=== PATIENT | female | born 1950 | race Caucasian/White ===

== ENCOUNTER → 2019-10-24 | Outpatient (CLI) | payer MEDICARE, OTHER, SELFPAY | PROVIDERS: Family Provider Family Medicine; Visit Provider Internal Medicine Medical Oncology | DX: Z45.2 Encounter for adjustment and management of vascular access device (principal) | CPT/HCPCS: 96523; J1642 ==

== ENCOUNTER 2019-12-09 08:07 | Outpatient (CLI) | payer MEDICARE, OTHER, SELFPAY ==
[2019-12-09 09:12] LABS: Alanine Aminotransferase 12 U/L (0-33); Albumin Level 4.1 g/dL (3.5-5.2); Alkaline Phosphatase 46 IU/L (35-105); Anion Gap 18.2 (5-19); Aspartate Amino Transferase 17 U/L (0-32); Basophils % 0.8 %; Blood Urea Nitrogen 28 mg/dL (8-23); Calcium 10.6 mg/dL (8.5-10.5); Carbon Dioxide 26 mmol/L (22-29); Chloride 101 mmol/L (98-107); Eosinophils # 0.2 10^3/uL (0.0-0.8); Globulin 2.8 g/dL (1.3-4.6); Glomerular Filtration Rate 61.9 mL/min (90-130); Glucose 92 mg/dL (65-115); Hematocrit 35.5 % (37.0-47.0); Hemoglobin 11.4 g/dL (11.5-15.3); Lactate Dehydrogenase 174 U/L (135-214); Lymphocytes # 0.5 10^3/uL (0.8-4.8); Lymphocytes % 14.8 %; Mean Corpuscular HGB Conc 32.1 g/dL (30.0-36.0); Mean Corpuscular Hemoglobin 29.8 pg (28.0-34.0); Mean Corpuscular Volume 92.7 fL (81-99); Monocytes # 0.4 10^3/uL (0.2-0.9); Monocytes % 10.7 %; Neutrophils # 2.5 10^3/uL (1.8-7.7); Neutrophils % 67.4 %; Nucleated Red Blood Cells % 0 %; Platelet Count 200 10^3/cmm (130-400); Potassium 4.2 mmol/L (3.5-5.1); Red Blood Count 3.83 10^6/uL (4.1-5.3); Red Cell Distribution Width 14.2 % (12.1-15.1); Sodium 141 mmol/L (136-145); Total Bilirubin 0.3 mg/dL (0.15-1.2); Total Protein 6.9 g/dL (6.6-8.7); White Blood Count 3.7 10^3/uL (4.0-10.0)
--- NOTE | 2019-12-09 12:40 | ONC FU_ITS ---
Dr. Quijano Patient Follow-Up Note Patient: Aniyah Drew Unit #: [id number]: 1950 Dicatated By: Mahesh Quijano M.D.Date of Visit:Dec 09, 2019 Onc Med Follow-up/Prog Note Chief Complaint: Lymphoma. History of Present Illness: This is a 69 year-old woman with extranodal marginal zone lymphoma, initially involving the right orbit and subsequently with involvement in the right breast. She was initially diagnosed with marginal zone lymphoma of the right orbit in June 2008. She was felt clinically to have stage IE disease. CT at that time showed a mass arising in the soft tissues of the right orbit anterior and superior to the ocular globe. It measured 2.3 x 0.9 x 2.4 cm. 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 Staging PET/CT showed some nonspecific FDG uptake in subcentimeter mediastinal lymph nodes. It was otherwise negative. Bone marrow aspiration/biopsy also was negative. She was treated with involved field radiation to a total dose of 30 Gy, which she completed in August 2008. She did have a good clinical response. She had several followup PET/CT studies, the most recent of which was in July 2009. It again showed some mild FDG uptake in the right supraclavicular and mediastinal lymph nodes. It was felt that there was possibly progression of the lymphoma, but the lymph nodes were not pathologically enlarged. She had just remained on observation following the radiation. In November 2012 a screening mammogram showed a new area of increasing density in the upper outer quadrant of the right breast. Additional studies, including ultrasound, showed what appeared to be some scarring or fibroglandular tissue. The appearance was not particularly suspicious for malignancy, but short term followup was recommended. Repeat mammogram/ultrasound in June 2013 showed persistent findings at that point these did appear to be more suspicious. She underwent stereotactic biopsy of the right breast on 08/01/2013. Pathology was again consistent with extra mercedez marginal zone lymphoma. Restaging PET/CT showed mild FDG uptake in right supraclavicular and paratracheal lymph nodes which were not pathologically enlarged. The maximum SUVs were 2.33 and 2.57 respectively. There was a 1.4 x 0.9 cm right lower lobe lung nodule with minimal FDG uptake (SUV 1.09). A small pancreatic lymph node was noted to have a maximum SUV of 3.79 and a 1.8 cm mesenteric nodule which appeared to be adjacent or within the small bowel in the mid abdomen just to the right of midline had a maximal SUV of 5.1. There were other subtle areas of FDG uptake in the subcutaneous soft tissues in the buttocks and lower extremities. The significance of that was uncertain. The right breast showed soft tissue densities with focally increased metabolic activity, greatest in the upper outer quadrant with maximum SUV 1.08. Overall, the PET/CT findings were nonspecific but suggestive of other areas of involvement. None of these would otherwise be significant enough to warrant treatment. However, with the biopsy proven involvement in the right breast, I did recommend treatment with a 4-week course of single agent Rituxan, which she completed in September 2013. She was then followed on observation/expectant management. Her other medical illnesses have been limited to GERD, degenerative arthritis, and she apparently also has had mild hypercholesterolemia. She also has a history of anxiety/depression. Her only other surgery was a hysterectomy and unilateral oophorectomy for endometriosis in 1989. She had a GI endoscopy procedure approximately 10 years ago. She had smoked in the past, but she quit in 1989. INTERIM HISTORY: On 08/22/2018 she presented with a painful nodule in the upper inner left thigh area. Her exam showed a 2 cm nodule in the proximal left femoral soft tissue. Restaging PET/CT on 08/31/2018 showed extensive left-sided pelvic lymphadenopathy from the left common iliac level to the femoral level, including a 3.1 x 2.6 cm left femoral node with SUV 21.9. Also noted were multiple FDG avid portal and gastrohepatic nodes measuring up to 1.7 cm. Two subcentimeter right supraclavicular nodes showed minimal FDG activity, but they were felt to be suspicious. Also noted were several minimally positive nodes in the right paratracheal, pretracheal, and subcarinal territories. She was referred to Dr. Corina Roberto at [facility]. The clinical presentation was worrisome for transformed lymphoma, but her left femoral node biopsy was again consistent with marginal zone lymphoma. Dr. Roberto has recommended treatment with 6 cycles of bendamustine/Rituxan and possibly maintenance Rituxan depending on the degree of response by follow-up PET/CT after 2 cycles. She began cycle 1 of bendamustine/Rituxan on 10/03/2018. She tolerated it without significant toxicity and she continued with cycle 2 on 10/31/2018. Restaging PET/CT on 11/23/2018, following completion of 2 cycles of chemotherapy, showed mild improvement in portal and gastrohepatic nodes with no significant decrease in size but with some decrease in the FDG avidity. A questionable right supraclavicular lymph node was unchanged and appeared most likely reactive. There was almost complete resolution of the pelvic lymphadenopathy, all decreased to subcentimeter in size and FDG negative. She then continued treatment with bendamustine/Rituxan. She began cycle 5 on 01/23/2019 and cycle 6 on 02/20/2019. Restaging PET/CT on 03/22/2019 showed no significant FDG uptake in supraclavicular lymph nodes. The upper abdominal lymph nodes appeared unchanged with the index peripancreatic node showing SUV 4.9. There was no residual activity and pelvic/inguinal lymph nodes and there were no new potential sites of involvement noted. Given those findings, she then began maintenance rituximab, cycle 1 on 04/24/2019. Restaging CT scans on 06/19/2019 showed no evidence of neoplastic process in the chest. The abdomen/pelvis showed small matthew hepatis lymph nodes with doubtful enlargement compared to the February 2019 PET/CT. There was resolved central mesenteric adenopathy. A soft tissue density was noted in the posterior lateral gluteal soft tissue on the right measuring 1.4 x 2.1 cm and slightly more prominent compared to previous scans. It was noted to be mildly FDG positive on a PET scan from August 2018. She continued with cycle 2 of maintenance rituximab on 06/24/2019. At her scheduled visit on 08/25/2019 her CBC showed a significant decline in her neutrophil count with her ANC decreased to 1600. With that finding, I opted to put her maintenance treatment on hold. She is seen for a follow-up visit. She has been feeling okay. She says her energy is pretty good as long as she gets enough rest. She is doing light work at home. ECOG score is 1. She has good appetite. She has not had fever. She sometimes has sweating, mostly at night. Her main complaint is that she has been having significant sinus congestion. She says she has a headful of stuff . She has some associated cough which is productive of clear sputum. She occasionally has wheezing and/or tightness in her chest. Her right ear also has been bothering her. She has been taking Claritin daily in the morning, and she also has been taking some Sudafed. She has some acid reflux, though it is managed adequately with medication. Bowel and bladder function have been okay. She continues to have pain in her hands and feet and also in her hips and back. She sometimes has headache. She has a little bit of dizziness. She has no focal neurologic symptoms. Medications: Jizibel-Pgfbymxji-Qpzn 1 Tablet Oral daily, Claritin 1 Tablet (of 10 mg) Oral daily, Clobetasol Propionate 1 (0.05 %) Cream Topical b.i.d. PRN, DULoxetine HCl 1 Tablet (of 20 mg) Capsule Delayed Release Particles Oral b.i.d., Estradiol 1 (0.5 mg) Tablet Oral daily, Ibuprofen 1 (600 mg) Tablet Oral b.i.d. PRN, Ocuvite 1 Tablet Oral daily, Xanax 1 (0.5 mg) Tablet Oral t.i.d. PRN Allergies: adhesive tape Review of Systems: Constitutional - Her energy is pretty good as long she gets enough rest. ECOG score is 1. She has good appetite. She has not had fever. She does have some sweating, mainly at night. ECOG score is 1, ENMT - Her right ear has been bothering her some. She has sinus congestion/drainage with a cough that produces clear phlegm. No mouth sores. No sore throat or difficulty swallowing, Hematologic/Lymphatic - No abnormal bruising or bleeding, Respiratory - No shortness of breath, but she has had some wheezing in her chest. No pleuritic pain or hemoptysis, Cardiovascular - She has occasional chest tightness. No palpitations, Gastrointestinal - No nausea or vomiting. She has occasional acid reflux. No diarrhea or constipation. No blood in the stool or black stools, Genitourinary (F) - No dysuria or hematuria. No urinary frequency. No urgency or incontinence, Musculoskeletal - She has pain in her hands and feet and in her hips and back, Integumentary - No skin complications, Neurologic - She has occasional headache. She has been dizzy lately. No numbness/paresthesias or other focal neurologic symptoms, Psychiatric - No anxiety or depression. No insomnia. Vital Signs: Performed on Dec 09, 2019 09:35 Height - 58.00 in Weight - 143.4 lbs (HIGH) BSA - 1.58 sq.m BMI - 29.97 Temperature - 97.5 F (LOW) Pulse - 88 /min Respiration - 20 /min BP - 152/70 mm(hg) (HIGH) O2 Sat - 95 % (LOW) Pain - 0 Physical Examination: Constitutional - She looks pretty good generally, Eyes - Sclerae nonicteric. Conjunctivae clear, ENMT - The right tympanic membrane is slightly red. The left looks normal. No lesions noted in the oral cavity, Hematologic/Lymphatic - No cervical, clavicular, or axillary adenopathy, Respiratory - Lungs sound clear. She has good air movement bilaterally, Cardiovascular - Heart rhythm is regular. There is no murmur, gallop, or rub noted, Abdomen - Soft. Liver and spleen are not enlarged. There is no abdominal mass or ascites noted and there is no inguinal adenopathy, Extremities - No edema, Neurologic - No focal neurologic deficits noted. Lab/Imaging: Test performed on Dec 09, 2019 08:40 LDH (Total) 174 U/L Sodium 141 mmol/L Potassium 4.2 mmol/L Chloride 101 mmol/L CO2 26 mmol/L Anion Gap 18.2 BUN 28 mg/dL Creatinine 0.9 mg/dL Cr Clearance (Est) 57.8900 mL/min eGFR 61.9 mL/min Glucose 92 mg/dL Calcium 10.6 mg/dL Protein, Total 6.9 g/dL Albumin 4.1 g/dL Globulin 2.8 g/dL Bilirubin, Total 0.3 mg/dL ALT (SGPT) 12 U/L AST (SGOT) 17 U/L Alkaline Phosphatase 46 IU/L WBC 3.7 10 3/uL RBC 3.83 10 6/uL HGB 11.4 g/dL HCT 35.5 % MCV 92.7 fL MCH 29.8 pg MCHC 32.1 g/dL RDW 14.2 % Platelet Count 200 10 3/cmm MPV 11.0 fL Neutrophils 2.5 10 3/uL Lymphocytes 0.5 10 3/uL Monocytes 0.4 10 3/uL Eosinophils 0.2 10 3/uL Basophils 0.0 10 3/uL Neutrophil % 67.4 % Lymphocyte % 14.8 % Monocyte % 10.7 % Eosinophil % 6.0 % Basophils % 0.8 % Impression: 1. Patient with clinical stage IE marginal zone lymphoma involving the right orbit with good clinical response to involved field radiation, completed in August 2008 to a dose of 30 Gy. 2. She had biopsy proven involvement with marginal zone lymphoma in the right breast in July 2013. There were no other areas of suspected involvement by PET/CT at that time. She completed a course of treatment with single agent Rituxan in September 2013. She tolerated it well. She has since then been followed on observation/expectant management. Her other medical illnesses include: 3. GERD. 4. Hyperlipidemia. 5. She has degenerative disease of the spine, and she underwent cervical laminectomy on 08/14/2016. 6. Anxiety/depression. In July 2018 she had presented with a palpable nodule in the proximal left femoral area. Restaging PET/CT showed extensive adenopathy in the left pelvic area. There was also involvement in portal and gastrohepatic lymph nodes and possibly in small right supraclavicular and mediastinal nodes. Left femoral lymph node biopsy was again consistent with marginal zone lymphoma. She was given a course of chemotherapy with bendamustine/Rituxan, cycle 1 beginning 10/03/2018. She had a significant response by follow-up PET/CT after 2 cycles. As of 02/20/2018 she began her 6th cycle of treatment. Restaging PET/CT on 03/22/2019 showed FDG negative right supraclavicular lymph nodes and unchanged, mildly FDG positive upper abdominal lymph nodes. There were no potential new sites of involvement noted. Given those findings, she then began on maintenance rituximab, cycle 1 administered on 04/24/2019. Her restaging CT scans on 06/19/2019 showed a small soft tissue nodule in the right lateral gluteal soft tissue of uncertain significance. There appeared to be no evidence of recurrence/progression of the lymphoma. She continued with cycle 2 of maintenance rituximab on a 2018. She has since then been stable clinically other than she apparently developed an infection in the left eye associated with bevacizumab injections for macular degeneration. At her follow-up visit in July 2019 she had developed moderately severe neutropenia, and I did opt to put her maintenance therapy on hold. She has since then had some recovery of her neutrophil count. She remains slightly anemic. She has some fatigue and some joint pain. She also has having significant sinus congestion and some cough/chest congestion. She thinks this is mostly allergy related. Plan: She will remain on observation/expectant management for the lymphoma. She will continue Claritin 10 mg daily in the morning for the allergy symptoms, and I will add Singulair 10 mg at bedtime and Mucinex-D twice a day. She is cautioned not to take the Sudafed along with the Mucinex-D. I will see her again in 3 months. Signed By: Mahesh Quijano M.D. <<Signature on File>>
== END 2019-12-09 08:08 | disposition home or self-care (01) ==
LOC: ONCMED 08:17
PROVIDERS: Family Provider Family Medicine; PCP Family Medicine; Visit Provider Internal Medicine Medical Oncology
DX: C88.4 Extranodal marginal zone B-cell lymphoma of mucosa-associated lymphoid tissue [MALT-lymphoma] (principal); R09.89 Other specified symptoms and signs involving the circulatory and respiratory systems; K21.9 Gastro-esophageal reflux disease without esophagitis; M19.90 Unspecified osteoarthritis, unspecified site; E78.00 Pure hypercholesterolemia, unspecified; F41.8 Other specified anxiety disorders; Z79.899 Other long term (current) drug therapy; Z98.1 Arthrodesis status; Z92.3 Personal history of irradiation; Z92.25 Personal history of immunosuppression therapy; Z87.891 Personal history of nicotine dependence; Z92.21 Personal history of antineoplastic chemotherapy
CPT/HCPCS: 36415; 36591; 80053; 83615; 85025; 99214

== ENCOUNTER 2019-12-22 08:18 | Outpatient (CLI) | payer MEDICARE, OTHER, SELFPAY ==
--- NOTE | 2019-12-22 08:54 | MM_ITS ---
WS: [id number] BILATERAL SCREENING DIGITAL MAMMOGRAM WITH CAD HISTORY: HX RIGHT BREAST CANCER, BILATERAL COMPARISON: 11/08/2018, 10/17/2017 and 10/16/2016 Bilateral CC and MLO views submitted. Computer aided detection analyzed. Breast composition: There are scattered areas of fibroglandular density. No suspicious masses, microc alcifications or architectural distortion. Long-term stability of a 6 mm nodule posterior to the RIGH T nipple. Benign calcifications in each breast. MM/[id number] IMPRESSION: BI-RADS: 2-Benign FOLLOW UP: 1 Year Follow-up
== END 2019-12-22 08:19 | disposition home or self-care (01) ==
LOC: RADSHAW 08:21
PROVIDERS: Family Provider Family Medicine; PCP Family Medicine; Visit Provider Internal Medicine Medical Oncology
DX: Z85.3 Personal history of malignant neoplasm of breast (principal)
CPT/HCPCS: 77066

== ENCOUNTER 2019-12-26 14:41 | Outpatient (CLI) | payer MEDICARE, OTHER, SELFPAY ==
--- NOTE | 2019-12-26 14:52 | XR_ITS ---
WS: [id number] Right shoulder, 3 views, 12/26/2019 Clinical Data: SHOULDER INJURY, RIGHT Comparison: Right shoulder, 12/27/2016. Findings: No fractures or dislocations are seen. The AC joint is normal. The adjacent right clavicle, right sca pula and ribs are normal. The soft tissues are unremarkable. The patient has had an anterior cervical disc fusion of the lower cervical spine. XR/XR shoulder RT min 2V* [id number] Impression: Negative right shoulder.
== END 2019-12-26 14:42 | disposition home or self-care (01) ==
LOC: WPI 14:44
PROVIDERS: Family Provider Family Medicine; PCP Family Medicine; Visit Provider Nurse Practitioner Family
DX: S49.91XA Unspecified injury of right shoulder and upper arm, initial encounter (principal); X58.XXXA Exposure to other specified factors, initial encounter
CPT/HCPCS: 73030

== ENCOUNTER 2020-01-07 08:34 | Outpatient (CLI) | payer MEDICARE, OTHER, SELFPAY | END 2020-01-07 08:35 | disposition home or self-care (01) | LOC: ONCMED 08:35 | PROVIDERS: Family Provider Family Medicine; PCP Family Medicine; Visit Provider Internal Medicine Medical Oncology | DX: Z45.2 Encounter for adjustment and management of vascular access device (principal) | CPT/HCPCS: 96523 ==

== ENCOUNTER 2020-02-06 08:08 | Outpatient (CLI) | payer MEDICARE, OTHER, SELFPAY | END 2020-02-06 08:09 | disposition home or self-care (01) | LOC: ONCMED 08:08 | PROVIDERS: Family Provider Family Medicine; PCP Family Medicine; Visit Provider Internal Medicine Medical Oncology | DX: Z45.2 Encounter for adjustment and management of vascular access device (principal) | CPT/HCPCS: 96523 ==

== ENCOUNTER 2020-03-04 10:59 | Outpatient (CLI) | payer MEDICARE, OTHER, SELFPAY ==
[2020-03-04 11:39] LABS: Basophils % 0.9 %; Eosinophils # 0.2 10^3/uL (0.0-0.8); Eosinophils % 4.2 %; Hematocrit 37.3 % (37.0-47.0); Hemoglobin 12.2 g/dL (11.5-15.3); Lymphocytes # 0.6 10^3/uL (0.8-4.8); Lymphocytes % 14.1 %; Mean Corpuscular HGB Conc 32.7 g/dL (30.0-36.0); Mean Corpuscular Hemoglobin 31.8 pg (28.0-34.0); Mean Corpuscular Volume 97.1 fL (81-99); Mean Platelet Volume 10.5 fL (7.4-10.4); Monocytes # 0.6 10^3/uL (0.2-0.9); Monocytes % 12.9 %; Neutrophils # 2.9 10^3/uL (1.8-7.7); Neutrophils % 67.7 %; Nucleated Red Blood Cells % 0 %; Platelet Count 221 10^3/cmm (130-400); Red Blood Count 3.84 10^6/uL (4.1-5.3); Red Cell Distribution Width 13.6 % (12.1-15.1); White Blood Count 4.3 10^3/uL (4.0-10.0)
[2020-03-04 11:56] LABS: Alanine Aminotransferase 21 U/L (0-33); Albumin Level 4.4 g/dL (3.5-5.2); Alkaline Phosphatase 50 IU/L (35-105); Anion Gap 15.4 (5-19); Aspartate Amino Transferase 22 U/L (0-32); Blood Urea Nitrogen 27 mg/dL (8-23); Calcium 10.6 mg/dL (8.5-10.5); Carbon Dioxide 27 mmol/L (22-29); Chloride 102 mmol/L (98-107); Globulin 2.7 g/dL (1.3-4.6); Glomerular Filtration Rate 61.9 mL/min (90-130); Glucose 96 mg/dL (65-115); Lactate Dehydrogenase 177 U/L (135-214); Osmolality Calculated 287 mOsm/kg (285-295); Potassium 4.4 mmol/L (3.5-5.1); Sodium 140 mmol/L (136-145); Total Bilirubin 0.2 mg/dL (0.15-1.2); Total Protein 7.1 g/dL (6.6-8.7)
--- NOTE | 2020-03-08 06:30 | ONC FU_ITS ---
Dr. Quijano Patient Follow-Up Note Patient: Aniyah Drew Unit #: [id number]: 1950 Dicatated By: Mahesh Quijano M.D.Date of Visit:March 04, 2020 Onc Med Follow-up/Prog Note Chief Complaint: Lymphoma. History of Present Illness: This is a 69 year-old woman with extranodal marginal zone lymphoma, initially involving the right orbit and subsequently with involvement in the right breast. She was initially diagnosed with marginal zone lymphoma of the right orbit in June 2008. She was felt clinically to have stage IE disease. CT at that time showed a mass arising in the soft tissues of the right orbit anterior and superior to the ocular globe. It measured 2.3 x 0.9 x 2.4 cm. 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 Staging PET/CT showed some nonspecific FDG uptake in subcentimeter mediastinal lymph nodes. It was otherwise negative. Bone marrow aspiration/biopsy also was negative. She was treated with involved field radiation to a total dose of 30 Gy, which she completed in August 2008. She did have a good clinical response. She had several followup PET/CT studies, the most recent of which was in July 2009. It again showed some mild FDG uptake in the right supraclavicular and mediastinal lymph nodes. It was felt that there was possibly progression of the lymphoma, but the lymph nodes were not pathologically enlarged. She had just remained on observation following the radiation. In November 2012 a screening mammogram showed a new area of increasing density in the upper outer quadrant of the right breast. Additional studies, including ultrasound, showed what appeared to be some scarring or fibroglandular tissue. The appearance was not particularly suspicious for malignancy, but short term followup was recommended. Repeat mammogram/ultrasound in June 2013 showed persistent findings at that point these did appear to be more suspicious. She underwent stereotactic biopsy of the right breast on 08/01/2013. Pathology was again consistent with extra mercedez marginal zone lymphoma. Restaging PET/CT showed mild FDG uptake in right supraclavicular and paratracheal lymph nodes which were not pathologically enlarged. The maximum SUVs were 2.33 and 2.57 respectively. There was a 1.4 x 0.9 cm right lower lobe lung nodule with minimal FDG uptake (SUV 1.09). A small pancreatic lymph node was noted to have a maximum SUV of 3.79 and a 1.8 cm mesenteric nodule which appeared to be adjacent or within the small bowel in the mid abdomen just to the right of midline had a maximal SUV of 5.1. There were other subtle areas of FDG uptake in the subcutaneous soft tissues in the buttocks and lower extremities. The significance of that was uncertain. The right breast showed soft tissue densities with focally increased metabolic activity, greatest in the upper outer quadrant with maximum SUV 1.08. Overall, the PET/CT findings were nonspecific but suggestive of other areas of involvement. None of these would otherwise be significant enough to warrant treatment. However, with the biopsy proven involvement in the right breast, I did recommend treatment with a 4-week course of single agent Rituxan, which she completed in September 2013. She was then followed on observation/expectant management. Her other medical illnesses have been limited to GERD, degenerative arthritis, and she apparently also has had mild hypercholesterolemia. She also has a history of anxiety/depression. Her only other surgery was a hysterectomy and unilateral oophorectomy for endometriosis in 1989. She had a GI endoscopy procedure approximately 10 years ago. She had smoked in the past, but she quit in 1989. INTERIM HISTORY: On 08/22/2018 she presented with a painful nodule in the upper inner left thigh area. Her exam showed a 2 cm nodule in the proximal left femoral soft tissue. Restaging PET/CT on 08/31/2018 showed extensive left-sided pelvic lymphadenopathy from the left common iliac level to the femoral level, including a 3.1 x 2.6 cm left femoral node with SUV 21.9. Also noted were multiple FDG avid portal and gastrohepatic nodes measuring up to 1.7 cm. Two subcentimeter right supraclavicular nodes showed minimal FDG activity, but they were felt to be suspicious. Also noted were several minimally positive nodes in the right paratracheal, pretracheal, and subcarinal territories. She was referred to Dr. Corina Roberto at [facility]. The clinical presentation was worrisome for transformed lymphoma, but her left femoral node biopsy was again consistent with marginal zone lymphoma. Dr. Roberto has recommended treatment with 6 cycles of bendamustine/Rituxan and possibly maintenance Rituxan depending on the degree of response by follow-up PET/CT after 2 cycles. She began cycle 1 of bendamustine/Rituxan on 10/03/2018. She tolerated it without significant toxicity and she continued with cycle 2 on 10/31/2018. Restaging PET/CT on 11/23/2018, following completion of 2 cycles of chemotherapy, showed mild improvement in portal and gastrohepatic nodes with no significant decrease in size but with some decrease in the FDG avidity. A questionable right supraclavicular lymph node was unchanged and appeared most likely reactive. There was almost complete resolution of the pelvic lymphadenopathy, all decreased to subcentimeter in size and FDG negative. She then continued treatment with bendamustine/Rituxan. She began cycle 5 on 01/23/2019 and cycle 6 on 02/20/2019. Restaging PET/CT on 03/22/2019 showed no significant FDG uptake in supraclavicular lymph nodes. The upper abdominal lymph nodes appeared unchanged with the index peripancreatic node showing SUV 4.9. There was no residual activity and pelvic/inguinal lymph nodes and there were no new potential sites of involvement noted. Given those findings, she then began maintenance rituximab, cycle 1 on 04/24/2019. Restaging CT scans on 06/19/2019 showed no evidence of neoplastic process in the chest. The abdomen/pelvis showed small matthew hepatis lymph nodes with doubtful enlargement compared to the February 2019 PET/CT. There was resolved central mesenteric adenopathy. A soft tissue density was noted in the posterior lateral gluteal soft tissue on the right measuring 1.4 x 2.1 cm and slightly more prominent compared to previous scans. It was noted to be mildly FDG positive on a PET scan from August 2018. She continued with cycle 2 of maintenance rituximab on 06/24/2019. At her scheduled visit on 08/25/2019 her CBC showed a significant decline in her neutrophil count with her ANC decreased to 1600. With that finding, I opted to put her maintenance treatment on hold. She is seen for a follow-up visit. She has been feeling good generally. She says her energy is pretty good. She has pretty much normal activity. ECOG score is 0. She has good appetite. She has no fever or night sweats. She has no shortness of breath, cough, or chest pain. She currently has no GI or complaints. Her acid reflux is being managed with medication. She does complain that she hurts everywhere. The most significant is in her back and in her hands and feet. She says that ibuprofen does help that. She does not complain of headache or dizziness. She has no focal neurologic symptoms. Medications: Pstngfz-Svbvvxrqm-Jdqd 1 Tablet Oral daily, Claritin 1 Tablet (of 10 mg) Oral daily, Clobetasol Propionate 1 (0.05 %) Cream Topical b.i.d. PRN, DULoxetine HCl 1 Tablet (of 20 mg) Capsule Delayed Release Particles Oral b.i.d., Estradiol 1 (0.5 mg) Tablet Oral daily, Ibuprofen 1 (600 mg) Tablet Oral b.i.d. PRN, Ocuvite 1 Tablet Oral daily, Xanax 1 (0.5 mg) Tablet Oral t.i.d. PRN Allergies: adhesive tape Review of Systems: Constitutional - She is feeling good. She has good energy is and she has normal activity. Her appetite is good and weight is up a few pounds. No fever, chills, hot flashes, or night sweats. ECOG score is 0, ENMT - She has sinus congestion/drainage. No mouth sores. No sore throat or difficulty swallowing, Hematologic/Lymphatic - No abnormal bruising or bleeding, Respiratory - No shortness of breath. No cough. No pleuritic pain or hemoptysis, Cardiovascular - No angina pain. No palpitations, Gastrointestinal - No nausea or vomiting. She has occasional heartburn that is well managed with her current medication regimen. No diarrhea or constipation. No blood in the stool or black stools, Genitourinary (F) - No dysuria or hematuria. No urinary frequency. No urgency or incontinence, Musculoskeletal - She has arthritis pain in her back, feet, and hands. She is taking 400mg Ibuprofen every 4 hours and 600mg at bedtime and she is also taking glucosamine, Integumentary - No skin complications, Neurologic - No headache or dizziness. No numbness/paresthesias or other focal neurologic symptoms, Psychiatric - No anxiety or depression. No insomnia. Vital Signs: Performed on March 04, 2020 13:18 Height - 58.00 in Weight - 145.8 lbs (HIGH) BSA - 1.59 sq.m BMI - 30.47 (HIGH) Temperature - 98.3 F (LOW) Pulse - 103 /min (HIGH) Respiration - 18 /min BP - 146/81 mm(hg) (HIGH) O2 Sat - 95 % (LOW) Pain - 0 Physical Examination: Constitutional - She looks pretty good generally, Eyes - Sclerae nonicteric. Conjunctivae clear, ENMT - No lesions noted in the oral cavity, Hematologic/Lymphatic - No cervical, clavicular, or axillary adenopathy, Respiratory - Lungs are clear with good air movement bilaterally, Cardiovascular - Heart rhythm is regular. There is no murmur, gallop, or rub noted, Abdomen - Soft. Liver and spleen are not enlarged. There is no abdominal mass or ascites noted and there is no inguinal adenopathy, Extremities - No edema. Dorsalis pedis pulses are palpable bilaterally, Neurologic - No focal neurologic deficits noted. Lab/Imaging: Test performed on March 04, 2020 11:15 LDH (Total) 177 U/L Sodium 140 mmol/L Potassium 4.4 mmol/L Chloride 102 mmol/L CO2 27 mmol/L Anion Gap 15.4 BUN 27 mg/dL Creatinine 0.9 mg/dL Cr Clearance (Est) 57.8900 mL/min eGFR 61.9 mL/min Glucose 96 mg/dL Calcium 10.6 mg/dL Protein, Total 7.1 g/dL Albumin 4.4 g/dL Globulin 2.7 g/dL Bilirubin, Total 0.2 mg/dL ALT (SGPT) 21 U/L AST (SGOT) 22 U/L Alkaline Phosphatase 50 IU/L WBC 4.3 10 3/uL RBC 3.84 10 6/uL HGB 12.2 g/dL HCT 37.3 % MCV 97.1 fL MCH 31.8 pg MCHC 32.7 g/dL RDW 13.6 % Platelet Count 221 10 3/cmm MPV 10.5 fL Neutrophils 2.9 10 3/uL Lymphocytes 0.6 10 3/uL Monocytes 0.6 10 3/uL Eosinophils 0.2 10 3/uL Basophils 0.0 10 3/uL Neutrophil % 67.7 % Lymphocyte % 14.1 % Monocyte % 12.9 % Eosinophil % 4.2 % Basophils % 0.9 % Impression: 1. Patient with clinical stage IE marginal zone lymphoma involving the right orbit with good clinical response to involved field radiation, completed in August 2008 to a dose of 30 Gy. 2. She had biopsy proven involvement with marginal zone lymphoma in the right breast in July 2013. There were no other areas of suspected involvement by PET/CT at that time. She completed a course of treatment with single agent Rituxan in September 2013. She tolerated it well. She has since then been followed on observation/expectant management. Her other medical illnesses include: 3. GERD. 4. Hyperlipidemia. 5. She has degenerative disease of the spine, and she underwent cervical laminectomy on 08/14/2016. 6. Anxiety/depression. In July 2018 she had presented with a palpable nodule in the proximal left femoral area. Restaging PET/CT showed extensive adenopathy in the left pelvic area. There was also involvement in portal and gastrohepatic lymph nodes and possibly in small right supraclavicular and mediastinal nodes. Left femoral lymph node biopsy was again consistent with marginal zone lymphoma. She was given a course of chemotherapy with bendamustine/Rituxan, cycle 1 beginning 10/03/2018. She had a significant response by follow-up PET/CT after 2 cycles. As of 02/20/2018 she began her 6th cycle of treatment. Restaging PET/CT on 03/22/2019 showed FDG negative right supraclavicular lymph nodes and unchanged, mildly FDG positive upper abdominal lymph nodes. There were no potential new sites of involvement noted. Given those findings, she then began on maintenance rituximab, cycle 1 administered on 04/24/2019. Her restaging CT scans on 06/19/2019 showed a small soft tissue nodule in the right lateral gluteal soft tissue of uncertain significance. There appeared to be no evidence of recurrence/progression of the lymphoma. She continued with cycle 2 of maintenance rituximab on 2018. She has since then been stable clinically other than she apparently developed an infection in the left eye associated with bevacizumab injections for macular degeneration. At her follow-up visit in July 2019 she had developed moderately severe neutropenia, and I did opt to put her maintenance therapy on hold. During followup she had some recovery of her neutrophil count. She has remained borderline anemic. She has some fatigue and some joint pain. Overall, though, she appears to be doing well clinically. Thus far there is been no evidence for any further recurrence/progression of the lymphoma. Plan: She remains on observation/expectant management for the lymphoma. I will see her again in 6 months. Signed By: Mahesh Quijano M.D. <<Signature on File>>
== END 2020-03-04 11:00 | disposition home or self-care (01) ==
LOC: ONCMED 10:59
PROVIDERS: PCP Family Medicine; Visit Provider Internal Medicine Medical Oncology
DX: C88.4 Extranodal marginal zone B-cell lymphoma of mucosa-associated lymphoid tissue [MALT-lymphoma] (principal); K21.9 Gastro-esophageal reflux disease without esophagitis; E78.5 Hyperlipidemia, unspecified; M47.9 Spondylosis, unspecified; F41.8 Other specified anxiety disorders; H35.30 Unspecified macular degeneration; D64.9 Anemia, unspecified; Z92.21 Personal history of antineoplastic chemotherapy; Z79.899 Other long term (current) drug therapy; Z92.23 Personal history of estrogen therapy
CPT/HCPCS: 36415; 36591; 80053; 83615; 85025; G0463

== ENCOUNTER 2020-04-07 09:09 | Outpatient (CLI) | payer MEDICARE, OTHER, SELFPAY | END 2020-04-07 09:10 | disposition home or self-care (01) | LOC: ONCMED 09:11 | PROVIDERS: PCP Family Medicine; Visit Provider Internal Medicine Medical Oncology | DX: Z45.2 Encounter for adjustment and management of vascular access device (principal) | CPT/HCPCS: 96523 ==

== ENCOUNTER 2020-05-04 08:06 | Outpatient (CLI) | payer MEDICARE, OTHER, SELFPAY | END 2020-05-04 08:07 | disposition home or self-care (01) | LOC: ONCMED 08:08 | PROVIDERS: PCP Family Medicine; Visit Provider Internal Medicine Medical Oncology | DX: Z45.2 Encounter for adjustment and management of vascular access device (principal); C88.4 Extranodal marginal zone B-cell lymphoma of mucosa-associated lymphoid tissue [MALT-lymphoma] | CPT/HCPCS: 96523 ==

== ENCOUNTER 2020-05-04 15:04 | Emergency (ER) | payer MEDICARE, OTHER, SELFPAY ==
[2020-05-04 15:15] VITALS: BP 164/84; PULSE 90; RESP 18; TEMP 36.3; O2SAT 95; BMI 29.2
--- NOTE | 2020-05-04 15:53 | CTR_ITS ---
PROCEDURE INFORMATION: Exam: CT Abdomen And Pelvis With Contrast Exam date and time: 05/04/2020 4:31 PM Age: 70 years old Clinical indication: Abdominal pain; Generalized; Prior surgery; Surgery type: Gastric; Patient HX: History of lymphoma; Additional info: Abd pain TECHNIQUE: Imaging protocol: Computed tomography of the abdomen and pelvis with intravenous contrast. Radiation optimization: All CT scans at this facility use at least one of these dose optimization techniques: automated exposure control; mA and/or kV adjustment per patient size (includes targeted exams where dose is matched to clinical indication); or iterative reconstruction. Contrast material: OMNIPAQUE; Contrast volume: 95 ml; Contrast route: INTRAVENOUS (IV); COMPARISON: No relevant prior studies available. RADIATION DOSE METRICS: Total DLP (mGy-cm): 789.72 FINDINGS: Lungs: There is calcified granuloma posteriorly at the right lung base. Liver: There is a 7 mm hypodensity in the left lobe of the liver, probably a small cyst too small to characterize by CT scanning. Gallbladder and bile ducts: The gallbladder is normal. Pancreas: The pancreas is normal. Spleen: The spleen demonstrates punctate calcifications, consistent with remote granulomatous organism exposure. Adrenals: The adrenal glands are normal. Kidneys and ureters: The kidneys are normal. There is no evidence of renal or ureteral calcifications. There is no evidence of hydronephrosis. Stomach and bowel: Unremarkable. No obstruction. No mucosal thickening. Appendix: A normal appendix is identified. Intraperitoneal space: There is no evidence of free intraperitoneal fluid. Vasculature: The aorta demonstrates mild atherosclerotic calcification. Lymph nodes: Unremarkable. No enlarged lymph nodes. Bladder: Unremarkable as visualized. Reproductive: There has been a hysterectomy. Bones/joints: The lumbar spine demonstrates moderate degenerative changes at multiple levels. Small sclerotic focus in the L2 vertebral body may represent benign bone island. Soft tissues: Subcutaneous soft tissue density in the right gluteal region is likely due to subcutaneous medication injection. CT/CT abdomen pelvis w con* [id number] IMPRESSION: No acute findings Radiation Dose CTDIVOL = (mGy): DLP = 789.72 (mGy-cm)
--- NOTE | 2020-05-04 15:54 | ED_ITS ---
HPI - Abdominal Pain General: Chief Complaint: Abdominal Pain Stated Complaint: abd pain Time Seen by Provider: 05/04/20 15:53 History of Present Illness: HPI narrative: 70-year-old female sent by her primary care physician for abdominal pain. She is previously had lymphoma has left upper quadrant abdominal pain and is concerned she has recurrence of her lymphoma. State her symptoms started 3 days ago and progressively gotten worse. Mostly left upper quadrant fullness and pain. She not had a cough or fever she not even had any nausea vomiting or diarrhea she has had a little bit of stomach upset she has a history of GERD and takes an [id number]-[id number] PPI. She denies any easy bruising or bleeding or any skin rashes. Bowels and bladder well been functioning normal with no other problems. MD elicited complaint: abdominal pain Pertinent past history: other (History of lymphoma) Onset (ago): day(s) (3 days) Pain Consistency: constant Location: LUQ Severity: moderate Quality: cramping Radiation: back Migration to: epigastric Exacerbating factors: movement Relieving factors: rest Context: other (History of lymphoma) Associated Symptoms: Reports anorexia, bloating, GI cramping and poor appetite; Denies chills, diarrhea, dysuria, fever(s), hematochezia, hematuria, hematemesis, fecal incontinence, loose stools, melena, nausea and vomiting Review of Systems Const: Denies: fever(s), chills, body aches, change in appetite, fatigue or malaise ENMT: Denies: throat pain, ear or mastoid pain, nasal discharge or nasal congestion Card: Denies: chest pain, edema, dyspnea on exertion or orthopnea Resp: Denies: dyspnea, productive cough or non-productive cough GI: Reports: bloating and GI cramping; Denies: nausea, vomiting, hematemesis, diarrhea, fecal incontinence, hematochezia or melena : Denies: dysuria or hematuria Skin/Breast: Denies: rash or pruritus PFSH ED PFSH: Medical History GERD (gastroesophageal reflux disease) History of lymphoma Osteoarthritis Surgical History History of hysterectomy Physical Exam Const: COMMON NORMALS: no acute distress GENERAL APPEARANCE: cooperative and comfortable ORIENTATION/CONSCIOUSNESS: Yes awake, Yes oriented to person, Yes oriented to place and Yes oriented to time HENMT: COMMON NORMALS: normocephalic, atraumatic, hearing grossly normal bilaterally, external ears normal, EAC's normal, TM's normal bilaterally and Normal nasal mucous membranes and turbinates present HEAD & SCALP: normocephalic and atraumatic NOSE: Normal nasal mucous membranes and turbinates present EXTERNAL EAR: Yes external ears normal EXTERNAL AUDITORY CANAL: EAC's normal TYMPANIC MEMBRANE: TM's normal bilaterally Eye: COMMON NORMALS: Equal, round and reactive pupils present, EOMs intact bilaterally, conjunctivae normal and no scleral icterus CONJUNCTIVA: Yes conjunctivae normal PUPIL: Yes Equal, round and reactive pupils present Neck/C-Spine: COMMON NORMALS: full ROM, no lymphadenopathy, supple and no JVD Lymph: LYMPHATIC: no lymphadenopathy noted and no lymphedema noted Resp: COMMON NORMALS: normal respiratory effort, No retractions, No use of accessory muscles and clear to auscultation bilaterally AUSCULTATION: clear to auscultation bilaterally Cardio: COMMON NORMALS: no JVD, regular rate, regular rhythm and No murmurs p resent (Cardio) RATE: regular rate RHYTHM: regular rhythm GI: COMMON NORMALS: Soft to palpation and No hepatosplenomegaly present AUSCULTATION: Yes normoactive bowel sounds PALPATION: Yes Soft to palpation, Yes Tenderness to palpation present (GI) Details: LUQ, No Guarding due to palpation present (GI) and Yes No hepatosplenomegaly present Extremity: COMMON NORMALS: normal to inspection, capillary refill normal, no clubbing, cyanosis or edema, no calf tenderness and no pedal edema Neuro: SENSORIUM/ORIENTATION: Yes oriented to person, Yes oriented to place and Yes oriented to time Skin: COMMON NORMALS: no rashes or lesions noted GENERAL SKIN EXAM: no rashes or lesions noted Course Vital Signs: Vital signs: Vital Signs Temperature 97.3 F L 05/04/20 15:15 Pulse Rate 70 05/04/20 18:18 Respiratory Rate 15 05/04/20 18:18 Blood Pressure 115/63 05/04/20 18:18 Pulse Oximetry 100 05/04/20 18:18 MDM - Abdominal Pain MDM Narrative: Medical decision making narrative: Reviewed CT findings with the patient. No evidence of recurrence of lymphoma. We will go ahead and treat this is a GI source she is actually feeling much better after the GI cocktail will double up on her PPI and I gave her Bentyl hydrocodone and Zofran. Also called Dr. Humphrey who initially had center in reviewed the CT findings with him so he would be aware. He is also aware that she will follow-up with him after leaving the emergency room. If she has recurrence of this she may very well need further investigation including possible endoscopy discussed all this with the patient and her daughter. Lab Data: Labs: Lab Results 05/04/20 05/04/20 05/04/20 Range/Units 15:36 15:57 15:57 WBC 4.5 (4.0-10.0) 10^3/ uL RBC 3.94 L (4.1-5.3) 10^6/u L Hgb 12.0 (11.5-15.3) g/dL Hct 37.7 (37.0-47.0) % MCV 95.7 (81-99) fL MCH 30.5 (28.0-34.0) pg MCHC 31.8 (30.0-36.0) g/dL RDW 13.0 (12.1-15.1) % Plt Count 211 (130-400) 10^3/c mm MPV 10.3 (7.4-10.4) fL Neut % (Auto) 66.7 % Lymph % (Auto) 17.8 % Edmonson % (Auto) 9.8 % Eos % (Auto) 5.1 % Baso % (Auto) 0.4 % Neut # (Auto) 3.0 (1.8-7.7) 10^3/u L Lymph # (Auto) 0.8 (0.8-4.8) 10^3/u L Edmonson # (Auto) 0.4 (0.2-0.9) 10^3/u L Eos # (Auto) 0.2 (0.0-0.8) 10^3/u L Baso # (Auto) 0.0 (0.0-0.1) 10^3/u L Nucleated RBC % (a uto) 0 % Nucleated RBCs # 0.0 /100WBC Sodium 143 (136-145) mmol/L Potassium 4.4 (3.5-5.1) mmol/L Chloride 105 (98-107) mmol/L Carbon Dioxide 27 (22-29) mmol/L Anion Gap 15.4 (5-19) BUN 21 (8-23) mg/dL Creatinine 0.9 (0.5-0.9) mg/dL Glucose 93 (65-115) mg/dL Calculated Osmolal ity 292 (285-295) mOsm/k g Calcium 10.3 (8.5-10.5) mg/dL Total Bilirubin 0.2 (0.15-1.2) mg/dL AST 26 (0-32) U/L ALT 24 (0-33) U/L Alkaline Phosphata se 52 (35-105) IU/L Total Protein 7.2 (6.6-8.7) g/dL Albumin 4.6 (3.5-5.2) g/dL Globulin 2.6 (1.3-4.6) g/dL Lipase 37 (13-60) U/L Urine Color Yellow (Yellow) Urine Appearance Hazy A (CLEAR) Urine pH 6.5 (5-7) Ur Specific Gravit y 1.005 (1.005-1.030) Urine Protein Neg (Negative) Urine Glucose (UA) Norm (Normal) Urine Ketones Negative (Negative) Urine Blood Neg (Negative) Urine Nitrate Negative (Negative) Urine Bilirubin Neg (NEGATIVE) Urine Urobilinogen Norm (Negative) mg/dL Ur Leukocyte Kathleen ase Negative (Negative) Urine RBC 0-4 H (0-2) /hpf Urine WBC None (0-5) /hpf Ur Squamous Epith Cells 5-10 H (0-5) Amorphous Sediment Not Reportable Urine Bacteria Trace (NONE) Discharge Plan Discharge Patient Disposition: Home, Self-Care Clinical Impression: Abdominal pain Condition: Stable Prescriptions: New hydrocodone-acetaminophen 5-325 mg tablet 1 tab PO Q6H PRN (Reason: pain) Qty: 20 RF: 0 Zofran 4 mg tablet 4 mg PO Q6H PRN (Reason: nausea and vomiting) Qty: 15 RF: 0 dicyclomine 20 mg tablet 20 mg PO QID Qty: 20 RF: 0 No Action Zyrtec 10 mg Tablet 5 mg PO DAILY RF: 0 Xanax 0.25 mg Tablet 0.25 mg PO DAILY RF: 0 Prevacid 30 mg Capsule,Delayed Release(Dr/Ec) 30 mg PO DAILY RF: 0 acyclovir 200 mg Capsule 200 mg PO DAILY RF: 0 Ocuvite Adult 50 Plus 250-5-1 mg Capsule 1 cap PO QAM RF: 0 estradiol 0.5 mg tablet 0.25 mg PO DAILY RF: 0 Discharge Orders: Discharge Order (Routine); Ordered 05/04/20 Ordered By: Melquiades Ashley Referrals: Dg Alcala DO [Primary Care Provider] - Patient Instructions: Abdominal Pain (ED) Discharge Date/Time: 05/04/20 18:19 Coding Level of Care Code ED Spinning Room Worker for Chg Fwd Exam Comprehensive
[2020-05-04 16:04] LABS: Basophils % 0.4 %; Eosinophils # 0.2 10^3/uL (0.0-0.8); Eosinophils % 5.1 %; Hematocrit 37.7 % (37.0-47.0); Lymphocytes # 0.8 10^3/uL (0.8-4.8); Lymphocytes % 17.8 %; Mean Corpuscular HGB Conc 31.8 g/dL (30.0-36.0); Mean Corpuscular Hemoglobin 30.5 pg (28.0-34.0); Mean Corpuscular Volume 95.7 fL (81-99); Mean Platelet Volume 10.3 fL (7.4-10.4); Monocytes # 0.4 10^3/uL (0.2-0.9); Monocytes % 9.8 %; Neutrophils % 66.7 %; Nucleated Red Blood Cells % 0 %; Platelet Count 211 10^3/cmm (130-400); Red Blood Count 3.94 10^6/uL (4.1-5.3); White Blood Count 4.5 10^3/uL (4.0-10.0)
[2020-05-04 16:14] VITALS: RESP 15; O2SAT 97
[2020-05-04 16:14] LABS: Urine Appearance Hazy (CLEAR); Urine Color Yellow (Yellow); pH Urine 6.5 (5-7)
[2020-05-04] MEDS: ondansetron 2 mg/ML SDV 2 mL 4 MG IVP (16:14)
[2020-05-04] MEDS: morphine 4 mg/mL SDV 1 mL IVP (16:14)
[2020-05-04 16:15] LABS: Add Urine Microscopic? YES; Bilirubin Urine Neg (NEGATIVE); Blood Urine Neg (Negative); Glucose Urine UA Norm (Normal); Ketones Urine Negative (Negative); Leukocyte Esterase Urine Negative (Negative); Nitrate Urine Negative (Negative); Protein Urine Neg (Negative); Specific Gravity, Urine 1.005 (1.005-1.030); Urobilinogen Urine Norm (Negative)
[2020-05-04 16:16] LABS: RBC Urine 0-4 /hpf (0-2)
[2020-05-04 16:17] LABS: Add Urine Culture? No; Bacteria Urine TRACE
[2020-05-04 16:28] LABS: Alanine Aminotransferase 24 U/L (0-33); Albumin Level 4.6 g/dL (3.5-5.2); Alkaline Phosphatase 52 IU/L (35-105); Anion Gap 15.4 (5-19); Aspartate Amino Transferase 26 U/L (0-32); Blood Urea Nitrogen 21 mg/dL (8-23); Calcium 10.3 mg/dL (8.5-10.5); Carbon Dioxide 27 mmol/L (22-29); Chloride 105 mmol/L (98-107); Globulin 2.6 g/dL (1.3-4.6); Glucose 93 mg/dL (65-115); Lipase 37 U/L (13-60); Osmolality Calculated 292 mOsm/kg (285-295); Potassium 4.4 mmol/L (3.5-5.1); Sodium 143 mmol/L (136-145); Total Bilirubin 0.2 mg/dL (0.15-1.2); Total Protein 7.2 g/dL (6.6-8.7)
[2020-05-04] MEDS: iohexol 300 mg/mL 100 mL Btl IV (16:41)
[2020-05-04] MEDS: lidocaine 2% viscous 15 ML, aluminum-mag hydrox-simethicon 30 ML, sucralfate oral liq 1 GM PO (18:08)
[2020-05-04 18:18] VITALS: BP 115/63; PULSE 70; RESP 15; O2SAT 100
== END 2020-05-04 18:19 | disposition home or self-care (01) ==
PROVIDERS: Physician Assistant; Emergency Provider Family Medicine; PCP Family Medicine
DX: R10.9 Unspecified abdominal pain (principal); Z85.72 Personal history of non-Hodgkin lymphomas
CPT/HCPCS: 12345; 36415; 74177; 80053; 81001; 81003; 83690; 85025; 96374; 96375; 99283; J2270; J2405; Q9967

== ENCOUNTER 2020-06-03 14:22 | Outpatient (CLI) | payer MEDICARE, OTHER, SELFPAY | END 2020-06-03 14:23 | disposition home or self-care (01) | LOC: ONCMED 14:24 | PROVIDERS: PCP Family Medicine; Visit Provider Internal Medicine Medical Oncology | DX: Z45.2 Encounter for adjustment and management of vascular access device (principal); C88.4 Extranodal marginal zone B-cell lymphoma of mucosa-associated lymphoid tissue [MALT-lymphoma] | CPT/HCPCS: 96523 ==

== ENCOUNTER 2020-07-06 08:19 | Outpatient (CLI) | payer MEDICARE, OTHER, SELFPAY | END 2020-07-06 08:20 | disposition home or self-care (01) | LOC: ONCMED 08:22 | PROVIDERS: PCP Family Medicine; Visit Provider Internal Medicine Medical Oncology | DX: Z45.2 Encounter for adjustment and management of vascular access device (principal) | CPT/HCPCS: 96523 ==

== ENCOUNTER 2020-08-03 16:34 | Outpatient (CLI) | payer MEDICARE, OTHER, SELFPAY ==
--- NOTE | 2020-08-03 | MR_ITS ---
WS: [id number] MRI RIGHT SHOULDER NONCONTRAST TECHNIQUE: Sagittal T2, coronal T1, T2 and proton density imaging. Axial gradient PDE imaging. CLINICAL INFORMATION: RIGHT SHOULDER IMPINGEMENT SYNDROME COMPARISON: None. FINDINGS: Moderate hypertrophic changes at the AC joint with mild edema. Synovial thickening. Small amount of s ubacromial subdeltoid fluid. Loss of the subacromial space. Mild downsloping of the acromion. High-gr aquiles tear involving the supraspinatus with retraction to the level of the glenohumeral joint. Thinning of the supraspinatus distally. Full-thickness tear measures approximately 10 mm. Chronic thinning of the infraspinatus with tendinopathy Teres minor appears intact. Tendinopathy with small intrasubstance tear involving the subscapularis. Medial subluxation of the biceps tendon in the proximal biceps groove. Chronic appearing tear of the intraarticular biceps tendon with atrophy. Distal biceps tendon intact within the bicipital groove.Sm all joint effusion. Degenerative fraying glenoid labrum. MR/MR shoulder RT wo con* [id number] IMPRESSION: 1. Moderate to advanced degenerative arthritis involving the AC joint with mil d downsloping of the acromion with loss of the subacromial space. 2. Full-thickness tear involving the supraspinatus with tendon retraction desc ribed above. Full-thickness tear measures 10 mm. 3. Chronic appearing thinning and atrophy of the infraspinatus with thinning o f the tendon distally with tendinopathy. 4. Intrasubstance tear and tendinopathy involving the subscapularis tendon wit h medial subluxation of the biceps tendon proximally. 5. Chronic appearing tear of the intraarticular biceps tendon with atrophy. Di stal biceps tendon intact within the bicipital groove.
== END 2020-08-03 16:35 | disposition home or self-care (01) ==
PROVIDERS: PCP Family Medicine; Visit Provider Family Medicine
DX: M75.41 Impingement syndrome of right shoulder (principal); M19.011 Primary osteoarthritis, right shoulder; S46.911A Strain of unspecified muscle, fascia and tendon at shoulder and upper arm level, right arm, initial encounter; X58.XXXA Exposure to other specified factors, initial encounter
CPT/HCPCS: 73221

== ENCOUNTER 2020-08-05 08:02 | Outpatient (CLI) | payer MEDICARE, OTHER, SELFPAY | END 2020-08-05 08:03 | disposition home or self-care (01) | LOC: ONCMED 08:04 | PROVIDERS: PCP Family Medicine; Visit Provider Internal Medicine Medical Oncology | DX: Z45.2 Encounter for adjustment and management of vascular access device (principal) | CPT/HCPCS: 96523 ==

== ENCOUNTER → 2020-08-13 11:57 | Outpatient (BNVA) | payer MEDICARE, OTHER, SELFPAY | PROVIDERS: PCP Family Medicine; Visit Provider Surgery | DX: Z11.59 Encounter for screening for other viral diseases (principal) | CPT/HCPCS: 87635 ==

== ENCOUNTER 2020-08-17 07:29 | Day surgery (SDC) | payer MEDICARE, OTHER, SELFPAY ==
[2020-08-13 12:57] VITALS: BMI 29.5
[2020-08-17 08:05] VITALS: BP 165/89; PULSE 90; RESP 18; TEMP 36.8; O2SAT 97
[2020-08-17] MEDS: sodium chloride 0.9% 1,000 ML 30 ML IV (08:26)
--- NOTE | 2020-08-17 08:32 | ANES.PREANE2 ---
Pre-Anesthetic Assessment Pre-Anesthetic Assessment: Height/Weight: Height 1.5 m Weight 66.224 kg Temp Pulse Resp BP Pulse Ox 98.3 F 90 18 165/89 97 08/17/20 08:05 08/17/20 08:05 08/17/20 08:05 08/17/20 08:05 08/17/20 08:05 Preop Diagnosis: screening Proposed Procedure: Operation Date: 08/17/20 09:00 Proposed Procedures p Colonoscopy 15259 Z12.11(Not Applicable) - Harris Alatorre MD Familial anesthetic complications: PONV Last intake: Intake Last Liquid Date 08/16/20 Last Liquid Time 20:30 Last Solid Date 08/15/20 Last Solid Time 20:00 Social: Social History: No alcohol and No tobacco Exam: Pre-Anes Outpt Exam: alert, oriented x 3, clear to auscultation bilaterally and regular rate & rhythm Airway: Cervical ROM: WNL (neck surgery) MP: 1 Dentition: Full GI: GI: GERD Musc/skel: Comments: R shoulder pain d/t tendons torn, we'll have her get in comfortable position befores inducing anesthesia Anesthetic Plan: ASA status: 2 Anesthesia: MAC Risk of > 500 ml blood loss (7ml/kg in children): No Meds/Allergies Current Medications: Current Medications Generic Name Dose Route Start Last Admin Trade Name Freq PRN Reason Stop Dose Admin Sodium Chloride 1,000 mls @ 30 ml s/hr 08/17/20 07:45 08/17/20 08:26 Sodium Chloride 0.9% IV 08/18/20 07:44 30 mls/hr .Q24H TOBY Administration PFSH Anesthesia PFSH: Medical History (Updated 08/01/20 @ 15:36 by Mirza Monae MD) GERD (gastroesophageal reflux disease) History of lymphoma Diagnosed initially with lymphoma and received radiation. 5 years later had lymphoma on the breast and received chemotherapy. She follows up with Dr. Quijano. In 2019 had lymphoma noted again and received 8 rounds of chemotherapy. No pertinent past medical history Denies diabetes, asthma, hypertension, seizures, DVT/PE PCP: Dr. Alcala Surgical History (Updated 08/01/20 @ 14:14 by Mirza Monae MD) History of cervical spinal surgery July 2016--spinal fusion by Dr. Green History of hysterectomy 1979--total vaginal hysterectomy with right salpingo-oophorectomy. Had an exploratory laparotomy done immediately after for bleeding. Family History Father Hypertension Heart disease Sister Hyperlipidemia Lung cancer Denies family history of Colon cancer Ovarian cancer Diabetes Breast cancer Uterine cancer Thyroid condition Stroke Data Anesthesia Cardiac Studies: No Data to Display
--- NOTE | 2020-08-17 09:31 | P.HP_ITS ---
Same Day Surgery H&P Indication for Procedure/HPI DATE OF PROCEDURE: August 17, 2020 CHIEF COMPLAINT/INDICATIONFOR SURGICAL PROCEDURE: screening PREOP DIAGNOSIS: screening PLANNED PROCEDRUE: Operation Date: 08/17/20 09:00 Proposed Procedures p Colonoscopy 77472 Z12.11(Not Applicable) - Harris Alatorre MD Medications/Allergies* Home Medications Medication Instructions Recorded Confirmed Type C,E,zinc,copper [id number] 1 cap PO QAM 05/04/20 08/17/20 History [Ocuvite Adult 50 Plus] alprazolam [Xanax] 0.25 mg PO DAILY 05/04/20 08/17/20 History cetirizine [Zyrtec] 5 mg PO DAILY 05/04/20 08/17/20 History lansoprazole [Prevacid] 30 mg PO DAILY 05/04/20 08/17/20 History acyclovir 200 mg capsule 800 mg PO DAILY cap 07/28/20 08/17/20 History duloxetine 30 mg capsule,delayed 30 mg PO BID 07/28/20 08/17/20 History release sprinkle Allergies/Adverse Reactions Allergy/AdvReac Type Severity Reaction Status Date / Time No Known Allergies Allergy Verified 08/03/20 10:31 Current Medications: Generic Name Dose Route Start Last Admin Trade Name Freq PRN Reason Stop Dose Admin Sodium Chloride 1,000 mls @ 30 mls/hr 08/17/20 07:45 08/17/20 08:26 Sodium Chloride 0.9% IV 08/18/20 07:44 30 mls/hr .Q24H TOBY Administration Pertinent History/Comorbid Conditions* Medical History (Updated 08/01/20 @ 15:36 by Mirza Monae MD) GERD (gastroesophageal reflux disease) History of lymphoma Diagnosed initially with lymphoma and received radiation. 5 years later had lymphoma on the breast and received chemotherapy. She follows up with Dr. Quijano. In 2019 had lymphoma noted again and received 8 rounds of chemotherapy. No pertinent past medical history Denies diabetes, asthma, hypertension, seizures, DVT/PE PCP: Dr. Alcala Surgical History (Updated 08/01/20 @ 14:14 by Mirza Monae MD) History of cervical spinal surgery July 2016--spinal fusion by Dr. Irizarry History of hysterectomy 1979--total vaginal hysterectomy with right salpingo-oophorectomy. Had an exploratory laparotomy done immediately after for bleeding. Family History (Updated 07/28/20 @ 15:48 by Khushboo Gandhi RN) Heart disease Father Hyperlipidemia Sister Lung cancer Sister Hypertension Father Denies family history of Colon cancer Ovarian cancer Diabetes Breast cancer Uterine cancer Thyroid condition Stroke Pertinent Exam Findings alert, oriented x 3 and operative site marked Recommendations Surgery/Procedure today Coding Level of Care Code Acute Roll Edge Stitcher Hand for Osman Rosario
[2020-08-17 10:04] VITALS: BP 130/84; PULSE 76; RESP 16; TEMP 36.2; O2SAT 98
[2020-08-17 10:22] VITALS: BP 161/81; PULSE 81; RESP 18; O2SAT 100
--- NOTE | 2020-08-17 10:40 | ANE.PACU2 ---
Inpatient post-anesthesia follow up: Airway intact: Yes Vital signs: Temperature 97.1 F Pulse Rate 81 Respiratory Rate 18 Blood Pressure 161/81 Pulse Oximetry 100 Oxygen Delivery Me thod Room Air Oxygen Flow Rate 2 Fraction of Inspir ed Oxygen Hydration adequate: Yes Nausea and vomiting: No Pain level: 1 Mental status: Baseline
== END 2020-08-17 10:41 | disposition home or self-care (01) ==
PROVIDERS: PCP Family Medicine; Visit Provider Surgery
PROC: 0DJD8ZZ Inspection of Lower Intestinal Tract, Via Natural or Artificial Opening Endoscopic (ICD-10-PCS; CPT 45378; principal; 2020-08-17 09:00)
DX: Z12.11 Encounter for screening for malignant neoplasm of colon (principal); K57.30 Diverticulosis of large intestine without perforation or abscess without bleeding; K64.8 Other hemorrhoids; K21.9 Gastro-esophageal reflux disease without esophagitis
CPT/HCPCS: 12345; G0121; J1644; J2704; J7030

== ENCOUNTER 2020-09-06 06:03 | Outpatient (CLI) | payer MEDICARE, OTHER, SELFPAY ==
[2020-09-06 14:27] LABS: Basophils % 0.8 %; Eosinophils # 0.2 10^3/uL (0.0-0.8); Hematocrit 37.2 % (37.0-47.0); Hemoglobin 11.7 g/dL (11.5-15.3); Lymphocytes # 1.1 10^3/uL (0.8-4.8); Lymphocytes % 21.4 %; Mean Corpuscular HGB Conc 31.5 g/dL (30.0-36.0); Mean Corpuscular Volume 95.4 fL (81-99); Mean Platelet Volume 10.2 fL (7.4-10.4); Monocytes # 0.5 10^3/uL (0.2-0.9); Monocytes % 9.2 %; Neutrophils # 3.23 10^3/uL (1.8-7.7); Neutrophils % 64.4 %; Nucleated Red Blood Cells % 0 %; Platelet Count 210 10^3/cmm (130-400); Red Cell Distribution Width 13.6 % (12.1-15.1)
[2020-09-06 14:48] LABS: Alanine Aminotransferase 18 U/L (0-33); Albumin Level 4.5 g/dL (3.5-5.2); Alkaline Phosphatase 55 IU/L (35-105); Anion Gap 11.7 (5-19); Aspartate Amino Transferase 17 U/L (0-32); Blood Urea Nitrogen 24 mg/dL (8-23); Calcium 9.5 mg/dL (8.5-10.5); Carbon Dioxide 28 mmol/L (22-29); Chloride 103 mmol/L (98-107); Globulin 2.1 g/dL (1.3-4.6); Glucose 123 mg/dL (65-115); Lactate Dehydrogenase 170 U/L (135-214); Osmolality Calculated 293 mOsm/kg (285-295); Potassium 3.7 mmol/L (3.5-5.1); Sodium 139 mmol/L (136-145); Total Bilirubin 0.2 mg/dL (0.15-1.2); Total Protein 6.6 g/dL (6.6-8.7)
--- NOTE | 2020-09-07 18:29 | ONC FU_ITS ---
Dr. Quijano Patient Follow-Up Note Patient: Aniyah Drew Unit #: [id number]: 1950 Dicatated By: Mahesh Quijano M.D.Date of Visit:Sep 06, 2020 Onc Med Follow-up/Prog Note Chief Complaint: Lymphoma. History of Present Illness: This is a 70 year-old woman with extranodal marginal zone lymphoma, initially involving the right orbit and subsequently with involvement in the right breast. She was initially diagnosed with marginal zone lymphoma of the right orbit in June 2008. She was felt clinically to have stage IE disease. CT at that time showed a mass arising in the soft tissues of the right orbit anterior and superior to the ocular globe. It measured 2.3 x 0.9 x 2.4 cm. 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 Staging PET/CT showed some nonspecific FDG uptake in subcentimeter mediastinal lymph nodes. It was otherwise negative. Bone marrow aspiration/biopsy also was negative. She was treated with involved field radiation to a total dose of 30 Gy, which she completed in August 2008. She did have a good clinical response. She had several followup PET/CT studies, the most recent of which was in July 2009. It again showed some mild FDG uptake in the right supraclavicular and mediastinal lymph nodes. It was felt that there was possibly progression of the lymphoma, but the lymph nodes were not pathologically enlarged. She had just remained on observation following the radiation. In November 2012 a screening mammogram showed a new area of increasing density in the upper outer quadrant of the right breast. Additional studies, including ultrasound, showed what appeared to be some scarring or fibroglandular tissue. The appearance was not particularly suspicious for malignancy, but short term followup was recommended. Repeat mammogram/ultrasound in June 2013 showed persistent findings at that point these did appear to be more suspicious. She underwent stereotactic biopsy of the right breast on 08/01/2013. Pathology was again consistent with extra mercedez marginal zone lymphoma. Restaging PET/CT showed mild FDG uptake in right supraclavicular and paratracheal lymph nodes which were not pathologically enlarged. The maximum SUVs were 2.33 and 2.57 respectively. There was a 1.4 x 0.9 cm right lower lobe lung nodule with minimal FDG uptake (SUV 1.09). A small pancreatic lymph node was noted to have a maximum SUV of 3.79 and a 1.8 cm mesenteric nodule which appeared to be adjacent or within the small bowel in the mid abdomen just to the right of midline had a maximal SUV of 5.1. There were other subtle areas of FDG uptake in the subcutaneous soft tissues in the buttocks and lower extremities. The significance of that was uncertain. The right breast showed soft tissue densities with focally increased metabolic activity, greatest in the upper outer quadrant with maximum SUV 1.08. Overall, the PET/CT findings were nonspecific but suggestive of other areas of involvement. None of these would otherwise be significant enough to warrant treatment. However, with the biopsy proven involvement in the right breast, I did recommend treatment with a 4-week course of single agent Rituxan, which she completed in September 2013. She was then followed on observation/expectant management. On 08/22/2018 she presented with a painful nodule in the upper inner left thigh area. Her exam showed a 2 cm nodule in the proximal left femoral soft tissue. Restaging PET/CT on 08/31/2018 showed extensive left-sided pelvic lymphadenopathy from the left common iliac level to the femoral level, including a 3.1 x 2.6 cm left femoral node with SUV 21.9. Also noted were multiple FDG avid portal and gastrohepatic nodes measuring up to 1.7 cm. Two subcentimeter right supraclavicular nodes showed minimal FDG activity, but they were felt to be suspicious. Also noted were several minimally positive nodes in the right paratracheal, pretracheal, and subcarinal territories. She was referred to Dr. Corina Roberto at [facility]. The clinical presentation was worrisome for transformed lymphoma, but her left femoral node biopsy was again consistent with marginal zone lymphoma. Dr. Roberto recommended treatment with 6 cycles of bendamustine/Rituxan and possibly maintenance Rituxan depending on the degree of response by follow-up PET/CT after 2 cycles. She began cycle 1 of bendamustine/Rituxan on 10/03/2018. She tolerated it without significant toxicity and she continued with cycle 2 on 10/31/2018. Restaging PET/CT on 11/23/2018 showed mild improvement in portal and gastrohepatic nodes with no significant decrease in size but with some decrease in the FDG avidity. A questionable right supraclavicular lymph node was unchanged and appeared most likely reactive. There was almost complete resolution of the pelvic lymphadenopathy, all decreased to subcentimeter in size and FDG negative. She then continued treatment with bendamustine/Rituxan. She began cycle 6 on 02/20/2019. Restaging PET/CT on 03/22/2019 showed no significant FDG uptake in supraclavicular lymph nodes. The upper abdominal lymph nodes appeared unchanged with the index peripancreatic node showing SUV 4.9. There was no residual activity and pelvic/inguinal lymph nodes and there were no new potential sites of involvement noted. Given those findings, she then began maintenance rituximab, cycle 1 on 04/24/2019. Restaging CT scans on 06/19/2019 showed no evidence of neoplastic process in the chest. The abdomen/pelvis showed small matthew hepatis lymph nodes with doubtful enlargement compared to the February 2019 PET/CT. There was resolved central mesenteric adenopathy. A soft tissue density was noted in the posterior lateral gluteal soft tissue on the right measuring 1.4 x 2.1 cm and slightly more prominent compared to previous scans. It was noted to be mildly FDG positive on a PET scan from August 2018. She continued with cycle 2 of maintenance rituximab on 06/24/2019. At her scheduled visit on 08/25/2019 her CBC showed a significant decline in her neutrophil count with her ANC decreased to 1600. With that finding, I opted to put her maintenance treatment on hold, and she was then followed on observation/expectant management. Her other medical illnesses have been limited to GERD, degenerative arthritis, and she apparently also has had mild hypercholesterolemia. She also has anxiety/depression. Her only other surgery was a hysterectomy and unilateral oophorectomy for endometriosis in 1989. She had smoked in the past, but she quit in 1989. INTERIM HISTORY: She is seen for a follow-up visit. She has been feeling good generally. Her energy is pretty good. She has normal activity. ECOG score 0. Her appetite is good. She has no fever or night sweats. She has no shortness of breath, cough, or chest pain. She has no GI/ complaints other than she still has some acid reflux symptoms despite taking Prevacid once a day. She is having a lot of trouble with joint pain, which she is managing with Voltaren gel and occasional ibuprofen. She does not complain of headache or dizziness. She has no focal neurologic symptoms. Medications: Pynjtkx-[id number] 1 Tablet Oral daily, Claritin 1 Tablet (of 10 mg) Oral daily, Clobetasol Propionate 1 (0.05 %) Cream Topical b.i.d. PRN, DULoxetine HCl 1 Tablet (of 20 mg) Capsule Delayed Release Particles Oral b.i.d., Estradiol 1 (0.5 mg) Tablet Oral daily, Ibuprofen 1 (600 mg) Tablet Oral b.i.d. PRN, Ocuvite 1 Tablet Oral daily, Xanax 1 (0.5 mg) Tablet Oral t.i.d. PRN Allergies: adhesive tape Review of Systems: Constitutional - Her energy is pretty good. She has normal activity. Appetite is good and weight is stable. No fever, night sweats, or hot flashes. ECOG score is 0, ENMT - She has some sinus congestion/drainage. No mouth sores. No sore throat or difficulty swallowing, Hematologic/Lymphatic - No abnormal bruising or bleeding, Respiratory - No shortness of breath. No cough. No pleuritic pain or hemoptysis, Cardiovascular - No angina pain. No palpitations, Gastrointestinal - No nausea or vomiting. She continues to have some acid reflux taking Prevacid once daily. No diarrhea or constipation. No blood in the stool or black stools, Genitourinary (F) - No dysuria or hematuria. No urinary frequency. No urgency or incontinence, Musculoskeletal - She continues to have a lot of trouble with arthritis pain. She does get some benefit with Voltaren gel. She occasionally takes ibuprofen, Integumentary - No skin rash, Neurologic - No headache or dizziness. No numbness or tingling. No other focal neurologic symptoms, Psychiatric - Her anxiety/depression is pretty well with Cymbalta. No insomnia. Vital Signs: Performed on Sep 06, 2020 15:37 Height - 58.00 in Weight - 144.4 lbs (LOW) BSA - 1.59 sq.m BMI - 30.18 (HIGH) Temperature - 97.3 F (LOW) Pulse - 102 /min (HIGH) Respiration - 20 /min BP - 144/71 mm(hg) (HIGH) O2 Sat - 97 % Pain - 0 Physical Examination: Constitutional - She looks good generally, Eyes - Sclerae nonicteric. Conjunctivae clear, ENMT - No lesions noted in the oral cavity, Hematologic/Lymphatic - No cervical, clavicular, or axillary adenopathy, Respiratory - Lungs are clear with good air movement bilaterally, Cardiovascular - Heart rhythm is regular. There is no murmur, gallop, or rub noted, Abdomen - Soft. Liver and spleen are not enlarged. There is no abdominal mass or ascites noted and there is no inguinal adenopathy, Extremities - No edema, Neurologic - No focal neurologic deficits noted. Lab/Imaging: Test performed on Sep 06, 2020 14:05 LDH (Total) 170 U/L Sodium 139 mmol/L Potassium 3.7 mmol/L Chloride 103 mmol/L CO2 28 mmol/L Anion Gap 11.7 BUN 24 mg/dL Creatinine 1.0 mg/dL Cr Clearance (Est) 51.3600 mL/min Glucose 123 mg/dL Osmolality - Calculated 293 mOsm/kg Calcium 9.5 mg/dL Protein, Total 6.6 g/dL Albumin 4.5 g/dL Globulin 2.1 g/dL Bilirubin, Total 0.2 mg/dL ALT (SGPT) 18 U/L AST (SGOT) 17 U/L Alkaline Phosphatase 55 IU/L WBC 5.0 10 3/uL RBC 3.90 10 6/uL HGB 11.7 g/dL HCT 37.2 % MCV 95.4 fL MCH 30.0 pg MCHC 31.5 g/dL RDW 13.6 % Platelet Count 210 10 3/cmm MPV 10.2 fL Neutrophils 3.23 10 3/uL Lymphocytes 1.1 10 3/uL Monocytes 0.5 10 3/uL Eosinophils 0.2 10 3/uL Basophils 0.0 10 3/uL Neutrophil % 64.4 % Lymphocyte % 21.4 % Monocyte % 9.2 % Eosinophil % 4.0 % Basophils % 0.8 % NRBC % 0 % Impression: 1. Patient with clinical stage IE marginal zone lymphoma involving the right orbit with good clinical response to involved field radiation, completed in August 2008 to a dose of 30 Gy. 2. She had biopsy proven involvement with marginal zone lymphoma in the right breast in July 2013. There were no other areas of suspected involvement by PET/CT at that time. She completed a course of treatment with single agent Rituxan in September 2013. She tolerated it well. She has since then been followed on observation/expectant management. Her other medical illnesses include: 3. GERD. 4. Hyperlipidemia. 5. She has degenerative disease of the spine, and she underwent cervical laminectomy on 08/14/2016. 6. Anxiety/depression. In July 2018 she had presented with a palpable nodule in the proximal left femoral area. Restaging PET/CT showed extensive adenopathy in the left pelvic area. There was also involvement in portal and gastrohepatic lymph nodes and possibly in small right supraclavicular and mediastinal nodes. Left femoral lymph node biopsy was again consistent with marginal zone lymphoma. She was given a course of chemotherapy with bendamustine/Rituxan, cycle 1 beginning 10/03/2018. She had a significant response by follow-up PET/CT after 2 cycles. As of 02/20/2018 she began her 6th cycle of treatment. Restaging PET/CT on 03/22/2019 showed FDG negative right supraclavicular lymph nodes and unchanged, mildly FDG positive upper abdominal lymph nodes. There were no potential new sites of involvement noted. Given those findings, she then began on maintenance rituximab, cycle 1 administered on 04/24/2019. Her restaging CT scans on 06/19/2019 showed a small soft tissue nodule in the right lateral gluteal soft tissue of uncertain significance. There appeared to be no evidence of recurrence/progression of the lymphoma. She continued with cycle 2 of maintenance rituximab on 2018. She has since then been stable clinically other than she apparently developed an infection in the left eye associated with bevacizumab injections for macular degeneration. At her follow-up visit in July 2019 she had developed moderately severe neutropenia, and I did opt to put her maintenance therapy on hold. During followup she had some recovery of her neutrophil count. She has remained slightly anemic. Her main problem clinically has been joint pain. She also continues to have acid reflux symptoms, despite taking Prevacid daily. There has been no evidence, though, of recurrence/progression of the lymphoma. Plan: She remains on observation/expectant management for the lymphoma. She will be given a flu shot today. I will see her again in 6 months. In the meantime, I did suggest that she try increasing the Prevacid to twice a day. Signed By: Mahesh Quijano M.D. <<Signature on File>>
== END 2020-09-06 06:04 | disposition home or self-care (01) ==
LOC: ONCMED 06:05
PROVIDERS: PCP Family Medicine; Visit Provider Internal Medicine Medical Oncology
DX: Z08 Encounter for follow-up examination after completed treatment for malignant neoplasm (principal); Z85.72 Personal history of non-Hodgkin lymphomas; K21.9 Gastro-esophageal reflux disease without esophagitis; E78.5 Hyperlipidemia, unspecified; M47.9 Spondylosis, unspecified; F41.9 Anxiety disorder, unspecified; F32.9 Major depressive disorder, single episode, unspecified; Z23 Encounter for immunization; Z92.3 Personal history of irradiation
CPT/HCPCS: 36591; 80053; 83615; 85025; 90471; 90686; 99214

== ENCOUNTER → 2020-09-08 14:17 | Outpatient (BNVA) | payer MEDICARE, OTHER, SELFPAY | PROVIDERS: PCP Family Medicine; Referring Provider Family Medicine; Visit Provider Specialist | DX: M25.511 Pain in right shoulder (principal) | CPT/HCPCS: 73030 ==

== ENCOUNTER 2020-11-12 11:07 | Outpatient (CLI) | payer MEDICARE, OTHER, SELFPAY | END 2020-11-12 11:08 | disposition home or self-care (01) | LOC: ONCMED 11:09 | PROVIDERS: PCP Family Medicine; Visit Provider Internal Medicine Medical Oncology | DX: Z45.2 Encounter for adjustment and management of vascular access device (principal) | CPT/HCPCS: 96523 ==

== ENCOUNTER 2020-12-23 07:53 | Outpatient (CLI) | payer MEDICARE, OTHER, SELFPAY | END 2020-12-23 07:54 | disposition home or self-care (01) | LOC: ONCMED 07:56 | PROVIDERS: PCP Family Medicine; Visit Provider Internal Medicine Medical Oncology | DX: Z45.2 Encounter for adjustment and management of vascular access device (principal) | CPT/HCPCS: 96523 ==

== ENCOUNTER 2021-02-22 09:01 | Outpatient (CLI) | payer MEDICARE, OTHER, SELFPAY | END 2021-02-22 09:02 | disposition home or self-care (01) | LOC: ONCMED 09:04 | PROVIDERS: PCP Family Medicine; Visit Provider Internal Medicine Medical Oncology | DX: Z45.2 Encounter for adjustment and management of vascular access device (principal) | CPT/HCPCS: 96523 ==

== ENCOUNTER 2021-03-21 10:30 | Outpatient (CLI) | payer MEDICARE, OTHER, SELFPAY | END 2021-03-21 10:31 | disposition home or self-care (01) | LOC: ONCMED 10:36 | PROVIDERS: PCP Family Medicine; Visit Provider Nurse Practitioner | DX: Z45.2 Encounter for adjustment and management of vascular access device (principal) | CPT/HCPCS: 96523 ==

== ENCOUNTER 2021-04-18 10:05 | Outpatient (CLI) | payer MEDICARE, OTHER, SELFPAY | END 2021-04-18 10:06 | disposition home or self-care (01) | LOC: ONCMED 10:08 | PROVIDERS: PCP Family Medicine; Visit Provider Nurse Practitioner | DX: Z45.2 Encounter for adjustment and management of vascular access device (principal) | CPT/HCPCS: 96523 ==

== ENCOUNTER 2021-05-20 09:07 | Outpatient (CLI) | payer MEDICARE, OTHER, SELFPAY | END 2021-05-20 09:08 | disposition home or self-care (01) | LOC: ONCMED 09:10 | PROVIDERS: PCP Family Medicine; Visit Provider Nurse Practitioner | DX: Z45.2 Encounter for adjustment and management of vascular access device (principal) | CPT/HCPCS: 96523 ==

== ENCOUNTER 2021-06-24 11:10 | Outpatient (CLI) | payer MEDICARE, OTHER, SELFPAY | END 2021-06-24 11:11 | disposition home or self-care (01) | LOC: ONCMED 11:14 | PROVIDERS: PCP Family Medicine; Visit Provider Internal Medicine Medical Oncology | DX: Z45.2 Encounter for adjustment and management of vascular access device (principal) | CPT/HCPCS: 96523 ==

== ENCOUNTER 2021-07-21 12:28 | Outpatient (CLI) | payer MEDICARE, OTHER, SELFPAY ==
[2021-07-21 12:55] LABS: Basophils # 0.1 10^3/uL (0.0-0.1); Basophils % 0.8 %; Eosinophils # 0.3 10^3/uL (0.0-0.8); Eosinophils % 4.9 %; Lymphocytes # 1.3 10^3/uL (0.8-4.8); Lymphocytes % 21.2 %; Mean Corpuscular HGB Conc 31.6 g/dL (30.0-36.0); Mean Corpuscular Hemoglobin 30.3 pg (28.0-34.0); Mean Platelet Volume 10.2 fL (7.4-10.4); Monocytes # 0.9 10^3/uL (0.2-0.9); Monocytes % 14.1 %; Neutrophils # 3.63 10^3/uL (1.8-7.7); Neutrophils % 58.7 %; Nucleated Red Blood Cells % 0 %; Platelet Count 257 10^3/cmm (130-400); Red Blood Count 3.96 10^6/uL (4.1-5.3); White Blood Count 6.2 10^3/uL (4.0-10.0)
[2021-07-21 13:41] LABS: Alanine Aminotransferase 14 U/L (0-33); Alkaline Phosphatase 43 IU/L (35-105); Anion Gap 14.4 (5-19); Aspartate Amino Transferase 18 U/L (0-32); Blood Urea Nitrogen 17 mg/dL (8-23); Calcium 9.3 mg/dL (8.5-10.5); Carbon Dioxide 28 mmol/L (22-29); Chloride 101 mmol/L (98-107); Globulin 2.5 g/dL (1.3-4.6); Glucose 84 mg/dL (65-115); Lactate Dehydrogenase 184 U/L (135-214); Osmolality Calculated 289 mOsm/kg (285-295); Potassium 4.4 mmol/L (3.5-5.1); Sodium 139 mmol/L (136-145); Total Bilirubin 0.3 mg/dL (0.15-1.2); Total Protein 6.5 g/dL (6.6-8.7)
--- NOTE | 2021-07-24 14:03 | ONC FU_ITS ---
Dr. Quijano Patient Follow-Up Note Patient: Aniyah Drew Unit #: [id number]: [id number] Dicatated By: Mahesh Quijano M.D.Date of Visit:Jul 21, 2021 Onc Med Follow-up/Prog Note Chief Complaint: Lymphoma. History of Present Illness: This is a 71 year-old woman with extranodal marginal zone lymphoma, initially involving the right orbit and subsequently with involvement in the right breast. She was initially diagnosed with marginal zone lymphoma of the right orbit in June 2008. She was felt clinically to have stage IE disease. CT at that time showed a mass arising in the soft tissues of the right orbit anterior and superior to the ocular globe. It measured 2.3 x 0.9 x 2.4 cm. 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 Staging PET/CT showed some nonspecific FDG uptake in subcentimeter mediastinal lymph nodes. It was otherwise negative. Bone marrow aspiration/biopsy also was negative. She was treated with involved field radiation to a total dose of 30 Gy, which she completed in August 2008. She did have a good clinical response. She had several followup PET/CT studies, the most recent of which was in July 2009. It again showed some mild FDG uptake in the right supraclavicular and mediastinal lymph nodes. It was felt that there was possibly progression of the lymphoma, but the lymph nodes were not pathologically enlarged. She had just remained on observation following the radiation. In November 2012 a screening mammogram showed a new area of increasing density in the upper outer quadrant of the right breast. Additional studies, including ultrasound, showed what appeared to be some scarring or fibroglandular tissue. The appearance was not particularly suspicious for malignancy, but short term followup was recommended. Repeat mammogram/ultrasound in June 2013 showed persistent findings at that point these did appear to be more suspicious. She underwent stereotactic biopsy of the right breast on 08/01/2013. Pathology was again consistent with extra mercedez marginal zone lymphoma. Restaging PET/CT showed mild FDG uptake in right supraclavicular and paratracheal lymph nodes which were not pathologically enlarged. The maximum SUVs were 2.33 and 2.57 respectively. There was a 1.4 x 0.9 cm right lower lobe lung nodule with minimal FDG uptake (SUV 1.09). A small pancreatic lymph node was noted to have a maximum SUV of 3.79 and a 1.8 cm mesenteric nodule which appeared to be adjacent or within the small bowel in the mid abdomen just to the right of midline had a maximal SUV of 5.1. There were other subtle areas of FDG uptake in the subcutaneous soft tissues in the buttocks and lower extremities. The significance of that was uncertain. The right breast showed soft tissue densities with focally increased metabolic activity, greatest in the upper outer quadrant with maximum SUV 1.08. Overall, the PET/CT findings were nonspecific but suggestive of other areas of involvement. None of these would otherwise be significant enough to warrant treatment. However, with the biopsy proven involvement in the right breast, I did recommend treatment with a 4-week course of single agent Rituxan, which she completed in September 2013. She was then followed on observation/expectant management. On 08/22/2018 she presented with a painful nodule in the upper inner left thigh area. Her exam showed a 2 cm nodule in the proximal left femoral soft tissue. Restaging PET/CT on 08/31/2018 showed extensive left-sided pelvic lymphadenopathy from the left common iliac level to the femoral level, including a 3.1 x 2.6 cm left femoral node with SUV 21.9. Also noted were multiple FDG avid portal and gastrohepatic nodes measuring up to 1.7 cm. Two subcentimeter right supraclavicular nodes showed minimal FDG activity, but they were felt to be suspicious. Also noted were several minimally positive nodes in the right paratracheal, pretracheal, and subcarinal territories. She was referred to Dr. Corina Roberto at [facility]. The clinical presentation was worrisome for transformed lymphoma, but her left femoral node biopsy was again consistent with marginal zone lymphoma. Dr. Roberto recommended treatment with 6 cycles of bendamustine/Rituxan and possibly maintenance Rituxan depending on the degree of response by follow-up PET/CT after 2 cycles. She began cycle 1 of bendamustine/Rituxan on 10/03/2018. She tolerated it without significant toxicity and she continued with cycle 2 on 10/31/2018. Restaging PET/CT on 11/23/2018 showed mild improvement in portal and gastrohepatic nodes with no significant decrease in size but with some decrease in the FDG avidity. A questionable right supraclavicular lymph node was unchanged and appeared most likely reactive. There was almost complete resolution of the pelvic lymphadenopathy, all decreased to subcentimeter in size and FDG negative. She then continued treatment with bendamustine/Rituxan. She began cycle 6 on 02/20/2019. Restaging PET/CT on 03/22/2019 showed no significant FDG uptake in supraclavicular lymph nodes. The upper abdominal lymph nodes appeared unchanged with the index peripancreatic node showing SUV 4.9. There was no residual activity and pelvic/inguinal lymph nodes and there were no new potential sites of involvement noted. Given those findings, she then began maintenance rituximab, cycle 1 on 04/24/2019. Restaging CT scans on 06/19/2019 showed no evidence of neoplastic process in the chest. The abdomen/pelvis showed small matthew hepatis lymph nodes with doubtful enlargement compared to the February 2019 PET/CT. There was resolved central mesenteric adenopathy. A soft tissue density was noted in the posterior lateral gluteal soft tissue on the right measuring 1.4 x 2.1 cm and slightly more prominent compared to previous scans. It was noted to be mildly FDG positive on a PET scan from August 2018. She continued with cycle 2 of maintenance rituximab on 06/24/2019. At her scheduled visit on 08/25/2019 her CBC showed a significant decline in her neutrophil count with her ANC decreased to 1600. With that finding, I opted to put her maintenance treatment on hold, and she was then followed on observation/expectant management. Her other medical illnesses have been limited to GERD, degenerative arthritis, and she apparently also has had mild hypercholesterolemia. She also has anxiety/depression. Her only other surgery was a hysterectomy and unilateral oophorectomy for endometriosis in 1989. She had smoked in the past, but she quit in 1989. INTERIM HISTORY: She is seen for a follow-up visit. She has been feeling good generally. She says her energy is low some days, but overall it is still pretty good. She has normal activity. ECOG score is 0. Appetite also is good. She has no fever or night sweats. She does not complain of shortness of breath, cough, or chest pain. She has no GI or complaints. She continues to complain that her joints are achy, but that is chronic. She does not complain of headache or dizziness. She has no focal neurologic symptoms. Medications: Uzqrair-Gqeamccuf-Bpvh 1 Tablet Oral daily, Claritin 1 Tablet (of 10 mg) Oral daily, Clobetasol Propionate 1 (0.05 %) Cream Topical b.i.d. PRN, DULoxetine HCl 1 Tablet (of 20 mg) Capsule Delayed Release Particles Oral b.i.d., Estradiol 1 (0.5 mg) Tablet Oral daily, Ibuprofen 1 (600 mg) Tablet Oral b.i.d. PRN, Ocuvite 1 Tablet Oral daily, Pantoprazole Sodium 1 Tablet (of 20 mg) Tablet, enteric coated Oral daily, Xanax 1 (0.5 mg) Tablet Oral t.i.d. PRN Allergies: adhesive tape Vital Signs: Performed on Jul 21, 2021 14:47 Height - 58.00 in Weight - 148.8 lbs (HIGH) BSA - 1.61 sq.m BMI - 31.10 (HIGH) Temperature - 96.6 F (LOW) Pulse - 86 /min Respiration - 18 /min BP - 115/73 mm(hg) O2 Sat - 96 % Pain - 0 Fatigue - 0 Physical Examination: Constitutional - She looks good generally, Eyes - Sclerae nonicteric. Conjunctivae clear, ENMT - No lesions noted in the oral cavity, Hematologic/Lymphatic - No cervical, clavicular, or axillary adenopathy, Respiratory - Lungs are clear with good air movement bilaterally, Cardiovascular - Heart rhythm is regular. There is no murmur, gallop, or rub noted, Abdomen - Soft. Liver and spleen are not enlarged. There is no abdominal mass or ascites noted and there is no inguinal adenopathy, Extremities - No edema, Neurologic - No focal neurologic deficits noted. Lab/Imaging: Test performed on Jul 21, 2021 12:40 LDH (Total) 184 U/L Sodium 139 mmol/L Potassium 4.4 mmol/L Chloride 101 mmol/L CO2 28 mmol/L Anion Gap 14.4 BUN 17 mg/dL Creatinine 0.8 mg/dL Cr Clearance (Est) 63.2700 mL/min Glucose 84 mg/dL Osmolality - Calculated 289 mOsm/kg Calcium 9.3 mg/dL Protein, Total 6.5 g/dL Albumin 4.0 g/dL Globulin 2.5 g/dL Bilirubin, Total 0.3 mg/dL ALT (SGPT) 14 U/L AST (SGOT) 18 U/L Alkaline Phosphatase 43 IU/L WBC 6.2 10 3/uL RBC 3.96 10 6/uL HGB 12.0 g/dL HCT 38.0 % MCV 96.0 fl MCH 30.3 pg MCHC 31.6 g/dL RDW 14.0 % Platelet Count 257 10 3/cmm MPV 10.2 fL Neutrophils 3.63 10 3/uL Lymphocytes 1.3 10 3/uL Monocytes 0.9 10 3/uL Eosinophils 0.3 10 3/uL Basophils 0.1 10 3/uL Neutrophil % 58.7 % Lymphocyte % 21.2 % Monocyte % 14.1 % Eosinophil % 4.9 % Basophils % 0.8 % NRBC % 0 % Problem List: 1. Marginal zone lymphoma. 2. GERD. 3. Hyperlipidemia. 4. She has degenerative disease of the spine, and she underwent cervical laminectomy on 08/14/2016. 5. Anxiety/depression. Problems Addressed with this Encounter and Plan: Patient with clinical stage IE marginal zone lymphoma involving the right orbit with good clinical response to involved field radiation, completed in August 2008 to a dose of 3000 cGy. She then had biopsy proven involvement with marginal zone lymphoma in the right breast in July 2013. There were no other areas of suspected involvement by PET/CT at that time. She completed a course of treatment with single agent Rituxan in September 2013. She tolerated it well. She was then followed on observation/expectant management. In July 2018 she had presented with a palpable nodule in the proximal left femoral area. Restaging PET/CT showed extensive adenopathy in the left pelvic area. There was also involvement in portal and gastrohepatic lymph nodes and possibly in small right supraclavicular and mediastinal nodes. Left femoral lymph node biopsy was again consistent with marginal zone lymphoma. She then underwent course of chemotherapy with 6 cycles of bendamustine/Rituxan,completed in January 2019. Restaging PET/CT on 03/22/2019 showed FDG negative right supraclavicular lymph nodes and unchanged, mildly FDG positive upper abdominal lymph nodes. There were no potential new sites of involvement noted. Given those findings, she then began on maintenance rituximab, cycle 1 administered on 04/24/2019. Her restaging CT scans on 06/19/2019 showed a small soft tissue nodule in the right lateral gluteal soft tissue of uncertain significance. There appeared to be no evidence of recurrence/progression of the lymphoma. She continued with cycle 2 of maintenance rituximab on 06/24/2019. At her follow-up visit in July 2019 she had developed moderately severe neutropenia, and I did opt to put her maintenance therapy on hold. During follow-up she has been doing well clinically, thus far with no evidence of any further progression of the lymphoma. She continues on expectant management. I will see her again in 1 year, or sooner as needed. Signed By: Mahesh Quijano M.D. <<Signature on File>>
== END 2021-07-21 12:29 | disposition home or self-care (01) ==
LOC: ONCMED 12:30
PROVIDERS: PCP Family Medicine; Visit Provider Internal Medicine Medical Oncology
DX: C83.08 Small cell B-cell lymphoma, lymph nodes of multiple sites (principal); K21.9 Gastro-esophageal reflux disease without esophagitis; E78.5 Hyperlipidemia, unspecified; M47.9 Spondylosis, unspecified; F41.8 Other specified anxiety disorders; Z79.899 Other long term (current) drug therapy
CPT/HCPCS: 36591; 80053; 83615; 85025; G0463

== ENCOUNTER 2021-11-10 14:10 | Outpatient (CLI) | payer MEDICARE, OTHER, SELFPAY | END 2021-11-10 14:11 | disposition home or self-care (01) | LOC: ONCMED 14:16 | PROVIDERS: PCP Family Medicine; Visit Provider Internal Medicine Medical Oncology | DX: Z45.2 Encounter for adjustment and management of vascular access device (principal) | CPT/HCPCS: 96523 ==

== ENCOUNTER 2021-11-24 15:08 | Outpatient (CLI) | payer MEDICARE, OTHER, SELFPAY ==
--- NOTE | 2021-11-24 15:09 | MM_ITS ---
WS: [id number] BILATERAL DIGITAL SCREENING MAMMOGR.PHY WITH CAD CLINICAL INFORMATION: HX OF BREAST CA HISTORY: Diagnostic mammogram. No current complaints. COMPARISON: December 22, 2019 TECHNIQUE: Bilateral CC and MLO views. FINDINGS: Scattered fibroglandular densities bilaterally. A few punctate calcifications. No suspicious focal ma ss, asymmetry, calcifications, or architectural distortion. No evidence of malignancy. MM/[place] [id number] IMPRESSION: BI-RADS: 2-Benign FOLLOW UP: 1 Year Follow-up Recommend return to annual diagnostic mammography.
== END 2021-11-24 15:09 | disposition home or self-care (01) ==
PROVIDERS: PCP Family Medicine; Visit Provider Internal Medicine Medical Oncology
DX: Z85.3 Personal history of malignant neoplasm of breast (principal)
CPT/HCPCS: 77066

== ENCOUNTER 2021-12-08 14:07 | Outpatient (CLI) | payer MEDICARE, OTHER, SELFPAY | END 2021-12-08 14:08 | disposition home or self-care (01) | LOC: ONCMED 14:11 | PROVIDERS: PCP Family Medicine; Visit Provider Nurse Practitioner | DX: Z45.2 Encounter for adjustment and management of vascular access device (principal) | CPT/HCPCS: 96523 ==

== ENCOUNTER 2022-01-05 11:28 | Outpatient (CLI) | payer MEDICARE, OTHER, SELFPAY | END 2022-01-05 11:29 | disposition home or self-care (01) | PROVIDERS: PCP Family Medicine; Visit Provider Nurse Practitioner | DX: Z45.2 Encounter for adjustment and management of vascular access device (principal) | CPT/HCPCS: 96523 ==

== ENCOUNTER 2022-02-06 10:56 | Outpatient (CLI) | payer MEDICARE, OTHER, SELFPAY | END 2022-02-06 10:57 | disposition home or self-care (01) | PROVIDERS: PCP Family Medicine; Visit Provider Nurse Practitioner | DX: C88.4 Extranodal marginal zone B-cell lymphoma of mucosa-associated lymphoid tissue [MALT-lymphoma] (principal) | CPT/HCPCS: 36591 ==

== ENCOUNTER 2022-03-06 10:55 | Oncology outpatient (recurring) (ONCR) | payer MEDICARE, OTHER, SELFPAY ==
[2022-03-06 11:03] VITALS: BP 144/83; PULSE 66; RESP 18; TEMP 36.4; O2SAT 97
== END 2022-03-28 23:59 | disposition home or self-care (01) ==
PROVIDERS: Visit Provider Internal Medicine Medical Oncology
DX: Z45.2 Encounter for adjustment and management of vascular access device (principal); C88.4 Extranodal marginal zone B-cell lymphoma of mucosa-associated lymphoid tissue [MALT-lymphoma]
CPT/HCPCS: 96523

== ENCOUNTER 2022-05-05 07:58 | Oncology outpatient (recurring) (ONCR) | payer MEDICARE, OTHER, SELFPAY | END 2022-05-28 23:59 | disposition home or self-care (01) | PROVIDERS: Visit Provider Internal Medicine Medical Oncology | DX: Z45.2 Encounter for adjustment and management of vascular access device (principal) | CPT/HCPCS: 96523 ==

== ENCOUNTER 2022-06-05 13:52 | Oncology outpatient (recurring) (ONCR) | payer MEDICARE, OTHER, SELFPAY ==
[2022-06-05 14:02] VITALS: BP 142/77; PULSE 83; RESP 16; TEMP 36.4; O2SAT 98
== END 2022-06-28 23:59 | disposition home or self-care (01) ==
PROVIDERS: Visit Provider Internal Medicine Medical Oncology
DX: Z45.2 Encounter for adjustment and management of vascular access device (principal)
CPT/HCPCS: 96523

== ENCOUNTER 2022-07-04 14:28 | Oncology outpatient (recurring) (ONCR) | payer MEDICARE, OTHER, SELFPAY | END 2022-07-28 23:59 | disposition home or self-care (01) | LOC: ONCMED 14:29 | PROVIDERS: Visit Provider Internal Medicine Medical Oncology | DX: Z45.2 Encounter for adjustment and management of vascular access device (principal) | CPT/HCPCS: 96523 ==

== ENCOUNTER 2022-08-01 14:30 | Oncology outpatient (recurring) (ONCR) | payer MEDICARE, OTHER, SELFPAY | END 2022-08-28 23:59 | disposition home or self-care (01) | LOC: ONCMED 14:31 | PROVIDERS: Visit Provider Internal Medicine Medical Oncology | DX: Z45.2 Encounter for adjustment and management of vascular access device (principal) | CPT/HCPCS: 96523 ==

== ENCOUNTER 2022-09-26 14:30 | Oncology outpatient (recurring) (ONCR) | payer MEDICARE, OTHER, SELFPAY ==
[2022-09-26 14:30] VITALS: BP 179/94; PULSE 110; RESP 16; TEMP 36.9; O2SAT 97
== END 2022-09-27 23:59 | disposition home or self-care (01) ==
PROVIDERS: PCP Family Medicine; Visit Provider Internal Medicine Medical Oncology
DX: Z45.2 Encounter for adjustment and management of vascular access device (principal); Z95.828 Presence of other vascular implants and grafts
CPT/HCPCS: 96523

== ENCOUNTER 2022-10-10 09:41 | Outpatient (CLI) | payer MEDICARE, OTHER, SELFPAY ==
--- NOTE | 2022-10-10 09:52 | MM_ITS ---
WS: [id number] DIAGNOSTIC BILATERAL DIGITAL BREAST TOMOSYNTHESIS MAMMOGRAPHY WITH CAD LEFT breast ultrasound, limited HISTORY: HX OF BREAST CA COMPARISON: None available. TECHNIQUE: Bilateral craniocaudad, mediolateral oblique, and mediolateral views are submitted with to mosynthesis and SM. LEFT CC and MLO spot compressions. Computer aided detection utilized. Breast composition: There are scattered areas of fibroglandular density. Benign calcifications in eac h breast. Palpable marker upper outer quadrant of the LEFT breast is noted. There is no associated ma ss. There are a few benign calcifications within each breast. LEFT breast ultrasound, limited. Ultrasound is directed to the palpable area near the 2:00 axis. There is no mass identified. No skin thickening or increased vascularity. MM/[place] [id number] IMPRESSION: BI-RADS: 2-Benign FOLLOW UP: 1 Year Follow-up
== END 2022-10-10 09:42 | disposition home or self-care (01) ==
LOC: RAD 09:42
PROVIDERS: PCP Family Medicine; Visit Provider Obstetrics & Gynecology
DX: Z85.3 Personal history of malignant neoplasm of breast (principal)
CPT/HCPCS: 76642; 77062; G0279

== ENCOUNTER 2022-10-26 14:00 | Oncology outpatient (recurring) (ONCR) | payer MEDICARE, OTHER, SELFPAY | END 2022-10-28 23:59 | disposition home or self-care (01) | PROVIDERS: PCP Family Medicine; Visit Provider Internal Medicine Medical Oncology | DX: Z53.9 Procedure and treatment not carried out, unspecified reason (principal) | CPT/HCPCS: 96523 ==

== ENCOUNTER 2022-11-24 10:33 | Oncology outpatient (recurring) (ONCR) | payer MEDICARE, OTHER, SELFPAY | END 2022-11-28 23:59 | disposition home or self-care (01) | PROVIDERS: PCP Family Medicine; Visit Provider Internal Medicine Medical Oncology | DX: Z45.2 Encounter for adjustment and management of vascular access device (principal) | CPT/HCPCS: 96523 ==

== ENCOUNTER 2022-12-11 11:11 | Emergency (ER) | payer MEDICARE, OTHER, SELFPAY ==
[2022-12-11] VITALS (9 sets, daily range): BP systolic 153–179; BP diastolic 93–118; PULSE 82–105; RESP 14–23; TEMP 36.9; O2SAT 93–100
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
[2022-12-11 12:19] LABS: Basophils % 0.8 %; Eosinophils # 0.3 10^3/uL (0.0-0.8); Eosinophils % 5.7 %; Hematocrit 37.2 % (37.0-47.0); Hemoglobin 11.9 g/dL (11.5-15.3); Lymphocytes # 0.6 10^3/uL (0.8-4.8); Lymphocytes % 12.2 %; Mean Corpuscular Hemoglobin 29.3 pg (28.0-34.0); Mean Corpuscular Volume 91.6 fl (81-99); Mean Platelet Volume 10.1 fL (7.4-10.4); Monocytes # 0.6 10^3/uL (0.2-0.9); Monocytes % 11.4 %; Neutrophils # 3.39 10^3/uL (1.8-7.7); Neutrophils % 69.1 %; Nucleated Red Blood Cells % 0 %; Platelet Count 237 10^3/cmm (130-400); Red Blood Count 4.06 10^6/uL (4.1-5.3); Red Cell Distribution Width 13.6 % (12.1-15.1); White Blood Count 4.9 10^3/uL (4.0-10.0)
[2022-12-11 12:42] LABS: Alanine Aminotransferase 14 U/L (0-33); Albumin Level 4.1 g/dL (3.5-5.2); Alkaline Phosphatase 52 U/L (35-105); Aspartate Amino Transferase 18 U/L (0-32); Blood Urea Nitrogen 17 mg/dL (8-23); Calcium 9.2 mg/dL (8.5-10.5); Carbon Dioxide 24 mmol/L (22-29); Chloride 104 mmol/L (98-107); Creatinine Clr Calc Pharmacy 62.7864; Globulin 2.3 g/dL (1.3-4.6); Glucose 85 mg/dL (65-115); Osmolality Calculated 289 mOsm/kg (285-295); Sodium 139 mmol/L (136-145); Total Bilirubin 0.2 mg/dL (0.15-1.2); Total Protein 6.4 g/dL (6.6-8.7)
[2022-12-11] MEDS: iohexol 350 mg/mL 500 mL Btl (per mL) IV (13:01)
== END 2022-12-11 14:18 | disposition home or self-care (01) ==
PROVIDERS: Emergency Provider Emergency Medicine; PCP Family Medicine
DX: Z04.1 Encounter for examination and observation following transport accident (principal); R07.89 Other chest pain; Z85.6 Personal history of leukemia; V89.2XXA Person injured in unspecified motor-vehicle accident, traffic, initial encounter
CPT/HCPCS: 70450; 71260; 72125; 73130; 74177; 80053; 85025; 99285; Q9967

== ENCOUNTER 2023-01-03 11:33 | Oncology outpatient (recurring) (ONCR) | payer MEDICARE, OTHER, SELFPAY | END 2023-01-26 23:59 | disposition home or self-care (01) | PROVIDERS: PCP Family Medicine; Visit Provider Internal Medicine Medical Oncology | DX: Z45.2 Encounter for adjustment and management of vascular access device (principal); Z95.828 Presence of other vascular implants and grafts | CPT/HCPCS: 96523 ==

== ENCOUNTER 2023-01-31 11:44 | Oncology outpatient (recurring) (ONCR) | payer MEDICARE, OTHER, SELFPAY ==
[2023-01-31 12:33] VITALS: BP 124/74; PULSE 92; RESP 18; TEMP 36.6; O2SAT 98
== END 2023-02-25 23:59 | disposition home or self-care (01) ==
LOC: ONCMED 11:44
PROVIDERS: PCP Family Medicine; Visit Provider Internal Medicine Medical Oncology
DX: Z45.2 Encounter for adjustment and management of vascular access device (principal); Z95.828 Presence of other vascular implants and grafts
CPT/HCPCS: 96523

== ENCOUNTER 2023-02-14 09:49 | Outpatient (CLI) | payer MEDICARE, OTHER, SELFPAY ==
--- NOTE | 2023-02-14 10:08 | USCV_ITS ---
Ainyah Drew Age: 72 Gender: F : 1950 Exam Date: 02/14/2023 11:04 Ordering Phys: Loy Peters Technologist: RENEE [place] [facility] [place]: Central Retinal Artery Occlusion Risk Factors: Previous Vascular Surgery: Right Brachial BP: / Left Brachial BP: / Right Left Velocity (cm/s) Spectral Plaque Velocity (cm/s) Spectral Plaque Syst/Diast Broadening Syst/Diast Broadening 95.40/ 16.40 Prox CCA 73.60 / 20.50 81.80/ 19.90 Mid CCA 68.50 / 20.50 88.90/ 23.10 Distal CCA 73.50 / 22.20 42.70/ 15.10 Prox ICA 61.10 / 20.40 69.70/ 12.50 Mid ICA 62.40 / 22.30 65.10/ 13.10 Distal ICA 84.10 / 28.90 91.40 ECA 62.40 0.73 ICA/CCA 1.14 Antegrade Vertebral Antegrade 63.70/ 22.50 cm/s 21.80/ 7.40 cm/s Tri Subclavian Tri 170.9 139.3 0 0 FINDINGS Comparison: none available. No significant elevation of systolic or diastolic velocities. Waveforms are normal. Minimal bilateral, calcified plaque in the bifurcations with no elevation of velocity. CONCLUSIONS Bilateral ICA stenosis less than 50%. Minimal carotid atherosclerosis. Dr. Tiffanie Trammell DO (Electronically Signed) Final Date: 14 February 2023 11:46 S
== END 2023-02-14 09:50 | disposition home or self-care (01) ==
LOC: RAD 09:56
PROVIDERS: PCP Family Medicine; Visit Provider Student in an Organized Health Care Education/Training Program
DX: H34.11 Central retinal artery occlusion, right eye (principal); I65.23 Occlusion and stenosis of bilateral carotid arteries
CPT/HCPCS: 93880

== ENCOUNTER 2023-03-27 14:19 | Emergency (ER) | payer MEDICARE, OTHER, SELFPAY ==
--- NOTE | 2023-03-27 14:32 | ECG_ITS ---
[facility] Test Date: 2023-03-27 Pat Name: Aniyah Drew Department: Room: Gender: Female Licensing Coordinator: : 1950 Requested By: Brina Killian Order Number: [id number] Darrin MD: Mami Mcclain M.D. Measurements Intervals [place] Rate: 101 P: 38 UT: 155 QRS: -15 QRSD: 140 T: 101 QT: 367 QTc: 477 Interpretive Statements SINUS TACHYCARDIA WITH FREQUENT VENTRICULAR PREMATURE COMPLEXES POSSIBLE LEFT ATRIAL ENLARGEMENT [-0.1mV P-WAVE IN V1/V2] LEFT BUNDLE BRANCH BLOCK [120+ ms QRS DURATION, 80+ ms Q/S IN V1/V2, 85+ ms R IN I/aVL/V5/V6] Compared to ECG 08/11/2016 15:31:15 Ventricular premature complex(es) now present Left bundle-branch block now present Sinus rhythm no longer present Myocardial infarct finding no longer present T-wave abnormality no longer present Possible ischemia no longer present Electronically Signed On 03-27-2023 18:58:42 CDT by Mami Mcclain M.D. [email or web address]
[2023-03-27 14:34] VITALS: BP 135/68; PULSE 104; RESP 16; TEMP 36.7; O2SAT 96; BMI 29.2
--- NOTE | 2023-03-27 15:43 | XR_ITS ---
WS: [id number] Exam: XR chest 1V portable [id number] Date/Time of Exam: 03/27/2023 3:43 PM Reason For Exam: fatigue Comparison 06/03/2015. The lungs are fully expanded and clear. Mild eventration of the right diaphragm. Normal cardiomediast inal silhouette. A left subclavian port appears to end at the cavoatrial junction. No pneumothorax. N o pleural effusion. Regional bony elements are intact. Fusion hardware partially visualized in the lo wer C-spine. XR/XR chest 1V portable [id number] IMPRESSION: 1. No acute cardiopulmonary finding.
[2023-03-27 16:07] LABS: Basophils % 0.5 %; Eosinophils # 0.1 10^3/uL (0.0-0.8); Eosinophils % 0.9 %; Hematocrit 39.6 % (37.0-47.0); Lymphocytes # 0.7 10^3/uL (0.8-4.8); Mean Corpuscular HGB Conc 30.3 g/dL (30.0-36.0); Mean Corpuscular Hemoglobin 28.4 pg (28.0-34.0); Mean Corpuscular Volume 93.8 fl (81-99); Mean Platelet Volume 10.4 fL (7.4-10.4); Monocytes # 0.7 10^3/uL (0.2-0.9); Monocytes % 9.9 %; Neutrophils # 5.15 10^3/uL (1.8-7.7); Neutrophils % 78.1 %; Nucleated Red Blood Cells % 0 %; Platelet Count 166 10^3/cmm (130-400); Red Blood Count 4.22 10^6/uL (4.1-5.3); Red Cell Distribution Width 15.8 % (12.1-15.1); White Blood Count 6.6 10^3/uL (4.0-10.0)
[2023-03-27 16:27] LABS: Troponin(5th) Baseline 18 ng/L (0-10)
[2023-03-27 16:31] LABS: Alanine Aminotransferase 16 U/L (0-33); Albumin Level 3.9 g/dL (3.5-5.2); Alkaline Phosphatase 67 U/L (35-105); Aspartate Amino Transferase 19 U/L (0-32); Blood Urea Nitrogen 16 mg/dL (8-23); Carbon Dioxide 19 mmol/L (22-29); Chloride 104 mmol/L (98-107); Globulin 2.6 g/dL (1.3-4.6); Glucose 86 mg/dL (65-115); Osmolality Calculated 282 mOsm/kg (285-295); Sodium 136 mmol/L (136-145); Total Bilirubin 0.6 mg/dL (0.15-1.2); Total Protein 6.5 g/dL (6.6-8.7)
[2023-03-27 16:36] LABS: Anion Gap 17.4 (5-19); Potassium 4.4 mmol/L (3.5-5.1)
[2023-03-27 17:17] VITALS: BP 152/88; PULSE 97; RESP 24; O2SAT 95
--- NOTE | 2023-03-27 17:22 | ED_ITS ---
HPI - Arrhythmia/Palpitations General: Chief Complaint: Arrhythmia/Palpitations Stated Complaint: abnormal EKG Time Seen by Provider: 03/27/23 17:21 History of Present Illness: 73-year-old female comes in today with concerns for a possible atrial fib that was noted on an EKG in primary care office. Patient had been seen her primary care for complaints of abdominal discomfort for the last 10 days. Patient appears nontoxic. Patient does have a history of lymphoma, GERD, macular degeneration, anxiety. Patient reports he just has not felt well for the last 10 days and was seen her primary care today and it was noted that she had some irregularity in her rhythm and they felt that she probably had atrial for by their EKG in the office. EKG in the ER notes a sinus rhythm ranging between in the 90s to 110s with occasional PVCs. Review of the office EKG notes similar rhythm with no signs of atrial fib. Associated symptoms: Reports nausea Review of Systems General: Reports: 10 or more systems reviewed and unremarkable except in HPI and below Const: Denies: fever(s) Card: Denies: chest pain Resp: Denies: dyspnea GI: Reports: abdominal pain and nausea : Denies: difficulty voiding Musc: Denies: neck pain or back pain Skin/Breast: Denies: rash PFSH ED PFSH: Medical History (Updated 03/27/23 @ 19:38 by DICK Hall) Anxiety and depression Diagnosed in 2019 and well-controlled with medication managed by primary care provider. She does not have a therapist or psychiatrist. GERD (gastroesophageal reflux disease) History of lymphoma Diagnosed initially with lymphoma and received radiation. 5 years later had lymphoma on the breast and received chemotherapy. She follows up with Dr. Quijano. In 2019 had lymphoma noted again and received 8 rounds of chemotherapy. -----> follows with Dr. Quijano every year he said he gets he can No pertinent past medical history Denies diabetes, asthma, hypertension, seizures, DVT/PE PCP: Dr. Alcala Surgical History (Updated 07/30/21 @ 07:59 by Mirza Monae MD) History of cervical spinal surgery July 2016--spinal fusion by Dr. Irizarry History of hysterectomy 1979--total vaginal hysterectomy with right salpingo-oophorectomy. Had an exploratory laparotomy done immediately after for bleeding. S/P rotator cuff repair right shoulder, [place] [address] [place] [facility] [place] Status post colonoscopy (08/17/20) Repeat in 10 years Family History Father Hypertension Heart disease Sister Hyperlipidemia Lung cancer Denies family history of Colon cancer Ovarian cancer Diabetes Breast cancer Uterine cancer Thyroid condition Stroke Physical Exam Const: COMMON NORMALS: alert HENMT: COMMON NORMALS: normocephalic HEAD & SCALP: normocephalic Neck/C-Spine: COMMON NORMALS: full ROM Resp: COMMON NORMALS: normal respiratory effort and clear to auscultation bilaterally AUSCULTATION: clear to auscultation bilaterally Cardio: COMMON NORMALS: regular rate, regular rhythm, S1 normal heart sound present and S2 normal heart sound present RATE: regular rate RHYTHM: regular rhythm HEART SOUNDS: S1 normal heart sound present and S2 normal heart sound present GI: COMMON NORMALS: Soft to palpation PALPATION: Yes Soft to palpation and Yes Tenderness to palpation present (GI) (Generalized) : COMMON NORMALS: Yes no CVA tenderness BLADDER/KIDNEY EXAM: Yes no CVA tenderness Back/Pelvis: COMMON NORMALS: no CVA tenderness Extremity: COMMON NORMALS: normal to inspection Neuro: SENSORIUM/ORIENTATION: Yes alert Skin: COMMON NORMALS: turgor normal GENERAL SKIN EXAM: turgor normal Course Vital Signs: Vital signs: Vital Signs Temperature 98.0 F 03/27/23 14:34 Pulse Rate 77 03/27/23 18:29 Respiratory Rate 24 H 03/27/23 17:17 Blood Pressure 149/71 03/27/23 18:29 Pulse Oximetry 95 03/27/23 18:29 Oxygen Delivery Me thod Room Air 03/27/23 18:29 MDM - Arrhythmia/Palpitations Medical Decision Making 73-year-old female comes in today for complaints of nausea and abdominal pain and irregular rhythm. EKG in the primary care office suggested atrial fib, review of the EKG noted a sinus tachycardia with regular P waves and occasional PVCs. Repeat EKG in the ER demonstrates similar reading. Abdomen soft with some tenderness generalized. Skin is warm and dry. Vital signs are normal. Differential diagnosis includes but not limited to new onset atrial fibs, sinus tachycardia, ACS, gallbladder disease, gastritis, pancreatitis, urinary tract infection. EKG noted sinus tachycardia in the low 100s with occasional PVCs. Patient was given 5 mg of metoprolol which decreased her rate to the 70s and noted to be a sinus rhythm and not atrial fib. Review of the EKG from the clinic also noted a sinus tachycardia. We will go ahead and set patient for follow-up with cardiology for further evaluation of her frequent PVCs and occasional tachycardia. CT of the chest and abdomen noted no abnormalities in the abdomen but did note some left basilar pneumonia. Recommended Levaquin and 500 mg for 7 days for treatment of pneumonia and follow-up with primary care until resolution. There still may be concern for carcinoma and this is what we are seeing here versus pneumonia and patient will need repeat imaging for resolution. Remainder of labs were unremarkable. Patient and family both reported understanding. Lab Data 03/27/23 16:00 03/27/23 16:00 Radiology Impressions Chest X-Ray 03/27/23 15:43 IMPRESSION: 1. No acute cardiopulmonary finding. Chest/Abdomen/Pelvis CT 03/27/23 17:46 IMPRESSION: 1. Stable left Mediport catheter. 2. Mild left posterior basilar and inferior segment pneumonia some tree-in-bud opacities. 3. No pulmonary embolus or aortic dissection. IMPRESSION: No acute findings. Laboratory Results WBC 6.6 10^3/uL (4.0-10.0) 03/27/23 16:00 RBC 4.22 10^6/uL (4.1-5.3) 03/27/23 16:00 Hgb 12.0 g/dL (11.5-15.3) 03/27/23 16:00 Hct 39.6 % (37.0-47.0) 03/27/23 16:00 MCV 93.8 fl (81-99) 03/27/23 16:00 MCH 28.4 pg (28.0-34.0) 03/27/23 16:00 MCHC 30.3 g/dL (30.0-36.0) 03/27/23 16:00 RDW 15.8 % (12.1-15.1) H 03/27/23 16:00 Plt Count 166 10^3/cmm (130-400) 03/27/23 16:00 MPV 10.4 fL (7.4-10.4) 03/27/23 16:00 Neut % (Auto) 78.1 % 03/27/23 16:00 Lymph % (Auto) 10.0 % 03/27/23 16:00 Barron % (Auto) 9.9 % 03/27/23 16:00 Eos % (Auto) 0.9 % 03/27/23 16:00 Baso % (Auto) 0.5 % 03/27/23 16:00 Neut # (Auto) 5.15 10^3/uL (1.8-7.7) 03/27/23 16:00 Lymph # (Auto) 0.7 10^3/uL (0.8-4.8) L 03/27/23 16:00 Barron # (Auto) 0.7 10^3/uL (0.2-0.9) 03/27/23 16:00 Eos # (Auto) 0.1 10^3/uL (0.0-0.8) 03/27/23 16:00 Baso # (Auto) 0.0 10^3/uL (0.0-0.1) 03/27/23 16:00 Nucleated RBC % (auto) 0 % 03/27/23 16:00 Nucleated RBCs # 0.0 /100WBC 03/27/23 16:00 Sodium 136 mmol/L (136-145) 03/27/23 16:00 Potassium 4.4 mmol/L (3.5-5.1) 03/27/23 16:00 Chloride 104 mmol/L (98-107) 03/27/23 16:00 Carbon Dioxide 19 mmol/L (22-29) L 03/27/23 16:00 Anion Gap 17.4 (5-19) 03/27/23 16:00 BUN 16 mg/dL (8-23) 03/27/23 16:00 Creatinine 0.9 mg/dL (0.5-0.9) 03/27/23 16:00 GFR Calculation Not Reportable 03/27/23 16:00 Glucose 86 mg/dL (65-115) 03/27/23 16:00 Calculated Osmolality 282 mOsm/kg (285-295) L 03/27/23 16:00 Calcium 9.0 mg/dL (8.5-10.5) 03/27/23 16:00 Total Bilirubin 0.6 mg/dL (0.15-1.2) 03/27/23 16:00 AST 19 U/L (0-32) 03/27/23 16:00 ALT 16 U/L (0-33) 03/27/23 16:00 Alkaline Phosphatase 67 U/L (35-105) 03/27/23 16:00 Troponin T Baseline 18 ng/L (0-10) H 03/27/23 16:00 Troponin T 120 Minute 18.62 ng/L (0-10) H 03/27/23 18:15 Delta Troponin T 0.62 ABS# (0-10) 03/27/23 18:15 Total Protein 6.5 g/dL (6.6-8.7) L 03/27/23 16:00 Albumin 3.9 g/dL (3.5-5.2) 03/27/23 16:00 Globulin 2.6 g/dL (1.3-4.6) 03/27/23 16:00 EKG Data EKG 2: EKG interpretation date: 03/27/23 EKG interpretation time: 18:00 Prior EKG tracings: available for review Interpretation: KG shows a sinus rhythm with occasional PVCs. Patient has a regular rate at [address] elevation is noted. No significant changes are noted from prior exam in comparison. Other EKG comments: Chest X-Ray 03/27/23 15:43 IMPRESSION: 1. No acute cardiopulmonary finding. Chest/Abdomen/Pelvis CT 03/27/23 17:46 IMPRESSION: 1. Stable left Mediport catheter. 2. Mild left posterior basilar and inferior segment pneumonia some tree-in-bud opacities. 3. No pulmonary embolus or aortic dissection. IMPRESSION: No acute findings. Discharge Plan Discharge Patient Disposition: Home Clinical Impression: Pneumonia Qualifiers: Pneumonia type: due to unspecified organism Laterality: left Lung location: lower lobe of lung Qualified Code(s): J18.9 - Pneumonia, unspecified organism Condition: Stable Prescriptions: New levofloxacin 500 mg tablet 500 mg PO DAILY Qty: 6 0RF No Action prednisone 20 mg tablet 20 mg PO BID 5 Days Qty: 10 0RF doxycycline hyclate 100 mg tablet 100 mg PO BID 7 Days Qty: 14 0RF clobetasol 0.05 % cream 1 applic TOPICAL .twice weekly Qty: 60 4RF duloxetine 30 mg capsule,delayed release(DR/EC) See Rx Instructions .ROUTE .COMPLEX Qty: 180 1RF Dose Instruction: TAKE 1 CAPSULE BY MOUTH TWICE A DAY Rx Instructions: TAKE 1 CAPSULE BY MOUTH TWICE A DAY pantoprazole 40 mg tablet,delayed release (DR/EC) See Rx Instructions .ROUTE .COMPLEX Qty: 90 3RF Dose Instruction: TAKE 1 TABLET BY MOUTH EVERY DAY FOR STOMACH Rx Instructions: TAKE 1 TABLET BY MOUTH EVERY DAY FOR STOMACH cetirizine [Zyrtec] 10 mg Tablet 10 mg PO QAM acyclovir 800 mg tablet 800 mg PO BEDTIME albuterol sulfate 90 mcg/actuation HFA aerosol inhaler 1 - 2 puff INHALATION Q4H PRN (Reason: Shortness Of Breath) neomycin-polymyxin B-dexameth 3.5 mg/g-10,000 unit/g-0.1 % ointment See Rx Instructions .ROUTE .COMPLEX Rx Instructions: apply ointment to right eye four times a day Ocuvite Adult 50 Plus 250 mg (90 mg-160 mg) Capsule 1 cap PO QAM prednisone 10 mg tablet 5 - 10 mg PO DAILY PRN (Reason: arthritis pain) alprazolam 0.25 mg tablet 0.25 mg PO BEDTIME estradiol 0.5 mg tablet 0.5 mg PO QAM Discharge Orders: Discharge ED (Routine); Ordered 03/27/23 Ordered By: Mukund Rosas Referrals: Jennifer Gonzales, BOILERMAKER HELPER [Primary Care Provider] - Discharge Diet: Usual diet Discharge Activity: Increase activity as tolerated Patient Instructions: Pneumonia (ED) Activity Restrictions/Additional Instructions: Home and rest. Take medication as directed for pneumonia. Drink plenty of water and fluids. Use acetaminophen or ibuprofen as needed for discomfort. Follow-up with primary care in 3 to 5 days for recheck. Case management will contact you regarding follow-up with cardiology for further evaluation of changes on EKG. Return to ER for worsening symptoms such as increased shortness of breath, severe chest pain, or new concerns. Coding Level of Care Code ED Program Strategist for Osman Rosario
--- NOTE | 2023-03-27 17:46 | CTR_ITS ---
PROCEDURE INFORMATION: Exam: CTA Chest With Contrast Exam date and time: 03/27/2023 6:51 PM Age: 73 years old Clinical indication: Other: Arrythmia; Prior surgery; Surgery date: 6+ months; Surgery type: Port hyst; Additional info: Chest and abd pain w/ arrythmia TECHNIQUE: Imaging protocol: Computed tomographic angiography of the chest with contrast. Exam focused on the arteries. 3D rendering (Not supervised by radiologist): MIP and/or 3D reconstructed images were created by the technologist. Radiation optimization: All CT scans at this facility use at least one of these dose optimization techniques: automated exposure control; mA and/or kV adjustment per patient size (includes targeted exams where dose is matched to clinical indication); or iterative reconstruction. Contrast material: OMNI 350; Contrast volume: 100 ml; Contrast route: INTRAVENOUS (IV); REPORTING DATA: Count of CT and Cardiac NM exams in prior 12 months: This patient has received 3 known CTs and 0 known cardiac nuclear medicine studies in the 12 months prior to the current study. COMPARISON: CT chest abdpel w/*[id number] 12/11/2022 1:06 PM RADIATION DOSE METRICS: Total DLP (mGy-cm): 841.4 FINDINGS: Tubes, catheters and devices: Stable left Mediport catheter. Pulmonary arteries: No pulmonary embolus or aortic dissection. Aorta: See Pulmonary arteries finding. Lungs: Mild left posterior basilar and inferior segment pneumonia some tree-in-bud opacities. Pleural spaces: Unremarkable. No pneumothorax. No pleural effusion. Heart: Unremarkable. No cardiomegaly. No pericardial effusion. Lymph nodes: Shotty mediastinal adenopathy which may be reactive. Stable right calcified hilar nodes and/or mediastinal nodes and/or lung nodules consistent with old granulomatous disease. Bones/joints: Stable postoperative metallic fixation of the cervical spine with or without metallic artifact. Soft tissues: Unremarkable. PROCEDURE INFORMATION: Exam: CT Abdomen And Pelvis With Contrast Exam date and time: 03/27/2023 6:51 PM Age: 73 years old Clinical indication: Other: Arrythmia; Prior surgery; Surgery date: 6+ months; Surgery type: Port hyst; Additional info: Chest and abd pain w/ arrythmia TECHNIQUE: Imaging protocol: Computed tomography of the abdomen and pelvis with contrast. Radiation optimization: All CT scans at this facility use at least one of these dose optimization techniques: automated exposure control; mA and/or kV adjustment per patient size (includes targeted exams where dose is matched to clinical indication); or iterative reconstruction. Contrast material: OMNI 350; Contrast volume: 100 ml; Contrast route: INTRAVENOUS (IV); REPORTING DATA: Count of CT and Cardiac NM exams in prior 12 months: This patient has received 3 known CTs and 0 known cardiac nuclear medicine studies in the 12 months prior to the current study. COMPARISON: CT chest abdpel w/*[id number] 12/11/2022 1:06 PM RADIATION DOSE METRICS: Total DLP (mGy-cm): 841.4 FINDINGS: Liver: Normal. No mass. Gallbladder and bile ducts: Normal. No calcified stones. No ductal dilation. Pancreas: Normal. No ductal dilation. Spleen: Calcified splenic granulomas. Adrenal glands: Normal. No mass. Kidneys and ureters: Normal. No hydronephrosis. Stomach and bowel: Periampullary duodenal diverticulum. Appendix: No evidence of appendicitis. Intraperitoneal space: Unremarkable. No free air. No significant fluid collection. Vasculature: Calcification of the abdominal aorta and/or iliac arteries consistent with atherosclerotic vessel disease. Lymph nodes: Unremarkable. No enlarged lymph nodes. Urinary bladder: Unremarkable as visualized. Reproductive: Status post hysterectomy. Bones/joints: Levoscoliosis. Mild to moderate multilevel spine degenerative changes including degenerative disc disease, spondylosis and facet degenerative changes. Soft tissues: Unremarkable. CT/CT angio chest w abd pel w con IMPRESSION: 1. Stable left Mediport catheter. 2. Mild left posterior basilar and inferior segment pneumonia some tree-in-bud opacities. 3. No pulmonary embolus or aortic dissection. IMPRESSION: No acute findings.
--- NOTE | 2023-03-27 17:52 | ECG_ITS ---
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 Measurements Intervals [place] Rate: 96 P: 47 OK: 144 QRS: -44 QRSD: 137 T: 106 QT: 391 QTc: 495 Interpretive Statements SINUS RHYTHM WITH OCCASIONAL VENTRICULAR PREMATURE COMPLEXES POSSIBLE LEFT ATRIAL ENLARGEMENT [-0.1mV P-WAVE IN V1/V2] LEFT AXIS DEVIATION [QRS AXIS < -30] LEFT BUNDLE BRANCH BLOCK [120+ ms QRS DURATION, 80+ ms Q/S IN V1/V2, 85+ ms R IN I/aVL/V5/V6] Compared to ECG 08/11/2016 15:31:15 Ventricular premature complex(es) now present Left-axis deviation now present Left bundle-branch block now present Myocardial infarct finding no longer present T-wave abnormality no longer present Possible ischemia no longer present Electronically Signed On 03-27-2023 19:00:32 CDT by Mami Mcclain M.D. [email or web address]
[2023-03-27] MEDS: ondansetron 2 mg/ML SDV 2 mL 4 MG IVP (18:20)
[2023-03-27] MEDS: metoprolol tartrate 1 mg/1 mL SDV 5 mL 5 MG IVP (18:22)
[2023-03-27] MEDS: sodium chloride 0.9% 500 ML IV (18:27)
[2023-03-27 18:29] VITALS: BP 149/71; PULSE 77; O2SAT 95
[2023-03-27] MEDS: iohexol 350 mg/mL 500 mL Btl (per mL) IV (18:57)
[2023-03-27 19:36] LABS: Troponin 5 2HR 18.62 ng/L (0-10)
[2023-03-27 19:41] LABS: Troponin 5 2HR Delta 0.62 ABS# (0-10)
[2023-03-27] MEDS: levoFLOXacin 500 mg Tablet PO (20:10)
--- NOTE | 2023-03-28 08:43 | DCPLANNER ---
Addendum entered by Romelia Jimenez 04/03/23 10:01: manager machine received the following message from [facility] regarding follow up appointment: Spoke with patient, she stated she was going to see her pcp next week and would let us know if she wnats to be scheduled or not. Thank you. Original Note: manager machine had message to schedule a follow up appointment for patient with cardiology. manager machine sent patients information to the front office staff at [facility]. Patients information will be printed and reviewed. Clinic will call patient with appointment information.
== END 2023-03-27 20:14 | disposition home or self-care (01) ==
PROVIDERS: Physician Assistant; Emergency Provider Nurse Practitioner Family; PCP Nurse Practitioner Family
DX: J18.9 Pneumonia, unspecified organism (principal)
CPT/HCPCS: 36415; 71045; 71275; 74177; 80053; 84484; 85025; 93005; 96374; 96375; 99285; J2405; J3490; J7040; Q9967

== ENCOUNTER 2023-04-10 14:32 | Oncology outpatient (recurring) (ONCR) | payer MEDICARE, OTHER, SELFPAY ==
[2023-04-10 14:44] VITALS: BP 168/87; PULSE 92; RESP 18; TEMP 36.5; O2SAT 96
== END 2023-04-27 23:59 | disposition home or self-care (01) ==
PROVIDERS: PCP Nurse Practitioner Family; Visit Provider Internal Medicine Medical Oncology
DX: Z45.2 Encounter for adjustment and management of vascular access device (principal)
CPT/HCPCS: 96523; J1642

== ENCOUNTER 2023-04-20 13:24 | Outpatient (CLI) | payer MEDICARE, OTHER, SELFPAY ==
--- NOTE | 2023-04-20 13:32 | XR_ITS ---
WS: [id number] DEXA (DUAL ENERGY X-RAY ABSORPTIOMETRY) Bone mineral density was performed using a Kinetic machine. HISTORY: STATUS, ASYMPTOMATIC POSTMENOPAUSAL COMPARISON: None available. Lumbar spine BMD (L1-L4): 1.479 g/cm2 T score: 2.5 Z score: 4.1 Total hip BMD: Left: 1.076 g/cm2. T score: 0.5 Z score: 2.1 Right: 1.085 g/cm2. T score: 0.6 Z score: 2.2 10 year probability of a major osteoporotic fracture is 12.4%. XR/XR DEXA axial skeleton* [id number] IMPRESSION: NORMAL BONE MINERAL DENSITY based upon the WHO classification for females.
== END 2023-04-20 13:25 | disposition home or self-care (01) ==
LOC: RAD 13:25
PROVIDERS: PCP Nurse Practitioner Family; Visit Provider Internal Medicine
DX: Z78.0 Asymptomatic menopausal state (principal)
CPT/HCPCS: 77080

== ENCOUNTER 2023-04-24 08:12 | Outpatient (CLI) | payer MEDICARE, OTHER, SELFPAY ==
--- NOTE | 2023-04-24 | ECG_ITS ---
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 Interpretive Statements NAME OF STUDY: LEXISCAN SESTAMIBI STRESS TEST INDICATION: [Shortness of Breath, ] Procedure: At the baseline, the blood pressure was 181/94 mmHg with a heart rate of 87 bpm. The electrocardiogram showed normal sinus rhythm, normal axis with normal ST and T's. The Lexiscan was infused over a period of 20 seconds. A total of 0.4 mg of Lexiscan was infused. The stress phase was continued for a total of 5 minutes. Heart rate was at the end of stress phase was 97 bpm and a blood pressure of 166/90 mmHg. The EKG at the peak infusion revealed normal sinus rhythm with no significant ST-T wave changes. Frequent PVCs were noted Sestamibi was injected 20 seconds after the Lexiscan infusion. Blood pressure at the end of recovery phase was 165/82 mmHg with a heart rate of 94 bpm. Conclusion: 1. Normal EKG response to Lexiscan infusion 2. No Lexiscan induced chest pain or cardiac arrhythmia. 3. Normal blood pressure and heart rate response. 4. Sestamibi/sestamibi perfusion scan pending; see separate report. Electronically Signed On 04-28-2023 14:39:39 CDT by Denny Sierra M.D. [id number]
[2023-04-24 08:32] VITALS: BMI 24.2
--- NOTE | 2023-04-24 08:34 | NMCV_ITS ---
NM susy perf SPECT r/s* [id number] Aniyah Drew Age: 73 Gender: F : 1950 Exam Date: 04/24/2023 09:07 Ordering Phys: Julieta Angela MD Technologist: LEWIS Daugherty Exam Location: [facility] Indications: CHEST PAIN STRESS TEST Please [facility] for [facility] IMAGE PROTOCOL Rest/Stress 1 Lexiscan Day Radiopharmaceutical Dose (mCi) Administration Site Administered by Rest: Tc-99m 10.8 IV LEWIS Patterson Sestamibi Stress:Tc-99m 32.6 IV LEWIS Patterson Sestamibi Rest: 24-Apr-2023 60 Discovery 630 Stress: 24-Apr-2023 30 Discovery 630 0.4mg Lexiscan. Images obtained in supine and prone position. SPECT RESULTS Technical Quality: Excellent Raw Data Analysis: Normal Image Corrections: No attenuation or motion correction applied Summed Stress Score: 4 Summed Rest Score: 10 Summed Difference Score: 0 PERFUSION FINDINGS There is a small in size, fixed perfusion defect noted in the apical and apical septal may. This is consistent with small area of prior infarct in these territories. No evidence of ischemia. FUNCTIONAL RESULTS (calculated via Gated SPECT) Stress Image LV EF (%): 53 Stress EDV (mL):66 TID: 1 Stress ESV (mL):31 FUNCTIONAL FINDINGS: There is normal left ventricular systolic function. IMPRESSIONS 1. 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 No evidence of ischemia seen. 2. LV systolic function is normal. Denny Sierra MD (Electronically Signed) Final Date: 24 April 2023 17:04 S
[2023-04-24] MEDS: regadenoson 0.4 Mg/5 ml Syringe IVP (09:53)
[2023-04-24 10:15] VITALS: BP 165/82; PULSE 94
== END 2023-04-24 08:13 | disposition home or self-care (01) ==
LOC: CDL 08:13
PROVIDERS: PCP Nurse Practitioner Family; Visit Provider Internal Medicine
DX: R07.9 Chest pain, unspecified (principal); I25.2 Old myocardial infarction
CPT/HCPCS: 36415; 78452; 93017; 96374; A9500; J2785

== ENCOUNTER 2023-05-08 13:59 | Oncology outpatient (recurring) (ONCR) | payer MEDICARE, OTHER, SELFPAY ==
[2023-05-08 14:10] VITALS: BP 165/96; PULSE 82; RESP 16; TEMP 36.2; O2SAT 96
== END 2023-05-28 23:59 | disposition home or self-care (01) ==
LOC: ONCMED 13:59
PROVIDERS: PCP Nurse Practitioner Family; Visit Provider Internal Medicine Medical Oncology
DX: Z45.2 Encounter for adjustment and management of vascular access device (principal)
CPT/HCPCS: 96523; J1642

== ENCOUNTER → 2023-06-04 15:00 | Outpatient (BNVA) | payer MEDICARE, OTHER, SELFPAY | PROVIDERS: PCP Nurse Practitioner Family; Visit Provider Internal Medicine Cardiovascular Disease | DX: I10 Essential (primary) hypertension (principal); R94.39 Abnormal result of other cardiovascular function study; I49.9 Cardiac arrhythmia, unspecified; I44.7 Left bundle-branch block, unspecified; Z87.891 Personal history of nicotine dependence | CPT/HCPCS: 99204 ==

== ENCOUNTER 2023-06-12 08:16 | Outpatient (CLI) | payer MEDICARE, OTHER, SELFPAY ==
--- NOTE | 2023-06-12 08:30 | CT_ITS ---
WS: [id number] CT CHEST, ABDOMEN AND PELVIS WITH CONTRAST HISTORY: History of lymphoma. TECHNIQUE: Contiguous 5 mm axial imaging performed through the chest, abdomen and pelvis with IV cont rast, oral contrast has not been provided. Coronal and sagittal reformats chest. Coronal and sagittal reformats through the abdomen and pelvis. All CT scans at [facility] use at least one of the se dose optimization techniques: automated exposure control; mA and/or kV adjustment per patient size (includes targeted exams where dose is matched to clinical indication); or iterative reconstruction. CONTRAST: Omnipaque 350; 100 mL IV. DLP: 781.04 mGy.cm COMPARISON: 03/27/2023, 12/11/[address]: Improved aeration at the left lung base since the prior study. There are continued noncalci fied, subcentimeter pulmonary nodules and areas of groundglass attenuation throughout both lungs but greatest throughout the right lung. These opacifications have been present on several prior examinati ons dating back to 2019. No significant interval change. No dense areas of consolidation. Left Mediport. Mild atherosclerosis aorta. Normal sized pulmonary artery. No mediastinal or hilar aquiles nopathy. No axillary adenopathy. Normal size heart. Small hiatal hernia. Abdomen CT: Normal size liver. No mass. Normal portal vein. Normal size spleen. Normal gallbladder an d adrenal glands. Normal pancreas. Mild cortical atrophy and thinning of each kidney. There is no angela al obstruction or mass. Mild atherosclerotic plaque abdominal aorta. Small ventral abdominal wall her cherri. Stomach is nondistended. No small bowel obstruction. Moderate diffuse constipation with fecal retenti on. The appendix appears normal. No acute inflammatory changes within the GI tract. No mesenteric or retroperitoneal adenopathy. Pelvic CT: No free fluid or adenopathy. Prior hysterectomy. Rotoscoliosis of the lumbar spine. No destructive bone lesions. IMPRESSION: 1. Interval resolution previously described tree-in-bud airspace disease left lower lobe. 2. No suspicious pulmonary masses or nodules or enlarging masses. There are a few scattered pulmonary nodules and areas of groundglass attenuation which have been stable since 2019 with only minimal yuly nge in size and appearance. 3. No abdominal or pelvic adenopathy. 4. Normal size spleen.
[2023-06-12] MEDS: iohexol 350 mg/mL 500 mL Btl (per mL) IV (08:38)
== END 2023-06-12 08:17 | disposition home or self-care (01) ==
PROVIDERS: PCP Nurse Practitioner Family; Visit Provider Internal Medicine Medical Oncology
DX: C88.4 Extranodal marginal zone B-cell lymphoma of mucosa-associated lymphoid tissue [MALT-lymphoma] (principal)
CPT/HCPCS: 71260; 74177; Q9967

== ENCOUNTER 2023-06-13 13:41 | Outpatient (CLI) | payer MEDICARE, OTHER, SELFPAY ==
--- NOTE | 2023-06-13 13:45 | USCV_ITS ---
Aniyah Drew Age: 73 Gender: F : 1950 Exam Date: 06/13/2023 13:58 Ordering Phys: Dilia Patino MD ([email or web address]) Technologist: Anamika Biggs Exam Location: [facility] Indication: ventricular arrhythmia, WHITEHEAD BP: 151 / 87 HR: 73 Rhythm: Sinus Technical Quality: Adequate MEASUREMENTS (Male / Female) Normal Values 2D ECHO LV Diastolic Diameter PLAX 4.0 cm 4.2 - 5.9 / 3.9 - 5.3 cm LV Systolic Diameter PLAX 2.1 cm IVS Diastolic Thickness 1.3 cm 0.6 - 1.0 / 0.6 - 0.9 cm IVS Systolic Thickness 1.5 cm LVPW Diastolic Thickness 0.8 cm 0.6 - 1.0 / 0.6 - 0.9 cm LVPW Systolic Thickness 1.8 cm LVOT Diameter 2.1 cm LV Ejection Fraction 2D Teich 79.3 % LV Ejection Fraction MOD 2C 75.0 % LV Ejection Fraction 2C AL 74.8 % LA Diameter 2.3 cm LA Width 1.8 cm LA Height 2.9 cm RA Width 2.2 cm RA Height 3.5 cm Aorta at Sinotubular Diameter 2.7 cm IVC Diameter 1.5 cm M-MODE Aortic Annulus Diameter 3.4 cm LA Ao Ratio MM 0.7 MV E Point Septal Separation 0.6 cm DOPPLER AV Peak Velocity 134.0 cm/s LVOT Peak Velocity 100.0 cm/s AV Area Cont Eq vti 2.8 cm squared AV Area Cont Eq pk 2.5 cm squared MV Peak Velocity 124.0 cm/s MV Area PHT 3.9 cm squared Mitral E to A Ratio 0.7 MV E' Velocity 46.5 cm/s Mitral E to MV E' Ratio 15.1 Mitral E to LV E' Lateral Ratio 13.9 Mitral E to LV E' Septal Ratio 16.8 TR Peak Velocity 212.8 cm/s TR Peak Gradient 18.1 mmHg Right Atrial Pressure 5.0 mmHg Pulmonary Artery Systolic Pressu 23.1 mmHg PV Peak Velocity 87.0 cm/s RV Acceleration Time 0.1 s RV Ejection Time 0.3 s RV AcT/ET 0.4 FINDINGS Left Ventricle Normal left ventricular size and systolic function, EF 67 %. Mild left ventricular hypertrophy. No regional wall motion abnormalities. Grade I/IV diastolic dysfunction (abnormal relaxation filling pattern), normal to mildly elevated filling pressures. Mild hypokinesis of the mid and apical septum and the anteroseptal Right Ventricle The right ventricle is normal in size and function. Right Atrium The right atrium is normal in size. Left Atrium The left atrium is normal in size. Mitral Valve Trace mitral valve regurgitation. Aortic Valve Thickened aortic valve. Tricuspid Valve Trace to mild tricuspid valve regurgitation. Estimated pulmonary artery peak systolic pressure 23 mm Hg Pulmonic Valve No gross abnormalities noted Pericardium Normal pericardium without effusion. Aorta Normal ascending aorta dimension. IVC The inferior vena cava appears normal. CONCLUSIONS Normal left ventricular size and systolic function, EF 67 %. Mild left ventricular hypertrophy. No regional wall motion abnormalities. Grade I/IV diastolic dysfunction (abnormal relaxation filling pattern), normal to mildly elevated filling pressures. Mild hypokinesis of the mid and apical septum and the anteroseptal segments Trace mitral valve regurgitation. Thickened aortic valve. Trace to mild tricuspid valve regurgitation. Estimated pulmonary artery peak systolic pressure 23 mm Hg. There is no pericardial effusion. No similar previous studies are available for comparison Dr Dilia Patino MD FACC (Electronically Signed) Final Date: 18 June 2023 18:36 S
== END 2023-06-13 13:42 | disposition home or self-care (01) ==
PROVIDERS: PCP Nurse Practitioner Family; Visit Provider Internal Medicine Cardiovascular Disease
DX: I08.3 Combined rheumatic disorders of mitral, aortic and tricuspid valves (principal); R06.09 Other forms of dyspnea
CPT/HCPCS: 93306; 99204

== ENCOUNTER 2023-06-19 10:13 | Oncology outpatient (recurring) (ONCR) | payer MEDICARE, OTHER, SELFPAY ==
[2023-05-29 12:37] VITALS: BMI 31.1
[2023-05-29 12:39] VITALS: BP 152/82; PULSE 106; RESP 17; TEMP 36.5; O2SAT 98
[2023-05-29 12:55] LABS: Basophils % 0.9 %; Eosinophils # 0.2 10^3/uL (0.0-0.8); Hematocrit 35.5 % (37.0-47.0); Hemoglobin 11.3 g/dL (11.5-15.3); Lymphocytes # 0.9 10^3/uL (0.8-4.8); Lymphocytes % 19.6 %; Mean Corpuscular HGB Conc 31.8 g/dL (30.0-36.0); Mean Platelet Volume 10.1 fL (7.4-10.4); Monocytes # 0.5 10^3/uL (0.2-0.9); Neutrophils # 2.92 10^3/uL (1.8-7.7); Neutrophils % 65.3 %; Nucleated Red Blood Cells % 0 %; Platelet Count 245 10^3/cmm (130-400); Red Cell Distribution Width 14.4 % (12.1-15.1); White Blood Count 4.5 10^3/uL (4.0-10.0)
[2023-05-29 13:19] LABS: Alanine Aminotransferase 13 U/L (0-33); Albumin Level 4.1 g/dL (3.5-5.2); Alkaline Phosphatase 53 U/L (35-105); Anion Gap 14.5 (5-19); Aspartate Amino Transferase 16 U/L (0-32); Blood Urea Nitrogen 15 mg/dL (8-23); Calcium 9.2 mg/dL (8.5-10.5); Carbon Dioxide 25 mmol/L (22-29); Chloride 108 mmol/L (98-107); Globulin 2.4 g/dL (1.3-4.6); Glucose 91 mg/dL (65-115); Osmolality Calculated 296 mOsm/kg (285-295); Potassium 4.5 mmol/L (3.5-5.1); Sodium 143 mmol/L (136-145); Total Bilirubin 0.2 mg/dL (0.15-1.2); Total Protein 6.5 g/dL (6.6-8.7)
== END 2023-06-28 23:59 | disposition home or self-care (01) ==
PROVIDERS: PCP Nurse Practitioner Family; Visit Provider Internal Medicine Medical Oncology
DX: Z08 Encounter for follow-up examination after completed treatment for malignant neoplasm (principal); Z85.72 Personal history of non-Hodgkin lymphomas; Z92.21 Personal history of antineoplastic chemotherapy; Z92.3 Personal history of irradiation; Z92.25 Personal history of immunosuppression therapy
CPT/HCPCS: 36591; 80053; 85025; 99214; J1642

== ENCOUNTER 2023-07-17 14:26 | Oncology outpatient (recurring) (ONCR) | payer MEDICARE, OTHER, SELFPAY ==
[2023-07-17 14:38] VITALS: BP 146/71; PULSE 92; RESP 16; TEMP 36.4; O2SAT 95
== END 2023-07-28 23:59 | disposition home or self-care (01) ==
PROVIDERS: PCP Nurse Practitioner Family; Visit Provider Internal Medicine Medical Oncology
DX: Z45.2 Encounter for adjustment and management of vascular access device; Z53.9 Procedure and treatment not carried out, unspecified reason
CPT/HCPCS: 96523; J1642

== ENCOUNTER 2023-08-14 14:28 | Oncology outpatient (recurring) (ONCR) | payer MEDICARE, OTHER, SELFPAY ==
[2023-08-14 14:33] VITALS: BP 134/74; PULSE 91; RESP 16; TEMP 36.3; O2SAT 97
== END 2023-08-28 23:59 | disposition home or self-care (01) ==
LOC: ONCMED 14:28
PROVIDERS: PCP Nurse Practitioner Family; Visit Provider Internal Medicine Medical Oncology
DX: Z45.2 Encounter for adjustment and management of vascular access device
CPT/HCPCS: 96523; J1642

== ENCOUNTER 2023-09-11 14:26 | Oncology outpatient (recurring) (ONCR) | payer MEDICARE, OTHER, SELFPAY ==
[2023-09-11 14:32] VITALS: BP 152/78; PULSE 86; RESP 16; TEMP 37.2; O2SAT 94
== END 2023-09-27 23:59 | disposition home or self-care (01) ==
LOC: ONCMED 14:26
PROVIDERS: PCP Nurse Practitioner Family; Visit Provider Internal Medicine Medical Oncology
DX: Z45.2 Encounter for adjustment and management of vascular access device (principal)
CPT/HCPCS: 96523; J1642

== ENCOUNTER 2023-10-11 08:39 | Outpatient (CLI) | payer MEDICARE, OTHER, SELFPAY ==
--- NOTE | 2023-10-11 08:48 | MM_ITS ---
WS: [id number] VIEWS: MLO, CC, and ML views both breasts. 3D digital tomosynthesis is also included in this exam. Comparisons. 08/28/2006, 08/29/2007, 09/11/2008, 09/16/2009, 10/25/2010, 11/14/2011, 12/11/2012. 4. 08/07/2014. 02/09/2015. 10/16/2016. 10/17/2017. 11/08/2018. 12/22/2019. 11/24/2021. Findings: There was no sign of mass, architectural distortion or suspicious calcification in either breast. The re are scattered areas of fibroglandular density Impression: MM/[place] [id number] BI-RADS: 2-Benign finding. FOLLOW-UP: 1 Year Follow-up This mammogram was also analyzed by the Computer Aided Detection System R2 Imag e Casino Change Attendant.
== END 2023-10-11 08:40 | disposition home or self-care (01) ==
LOC: RAD 08:39
PROVIDERS: PCP Nurse Practitioner Family; Visit Provider Nurse Practitioner Women's Health
DX: Z85.3 Personal history of malignant neoplasm of breast (principal)
CPT/HCPCS: 77062; G0279

== ENCOUNTER 2023-10-16 14:36 | Oncology outpatient (recurring) (ONCR) | payer MEDICARE, OTHER, SELFPAY ==
[2023-10-16 14:39] VITALS: BP 150/73; PULSE 87; RESP 16; TEMP 36.6; O2SAT 99
== END 2023-10-28 23:59 | disposition home or self-care (01) ==
LOC: ONCMED 14:37
PROVIDERS: PCP Nurse Practitioner Family; Visit Provider Internal Medicine Medical Oncology
DX: Z45.2 Encounter for adjustment and management of vascular access device (principal)
CPT/HCPCS: 96523; J1642

== ENCOUNTER 2023-11-14 11:12 | Oncology outpatient (recurring) (ONCR) | payer MEDICARE, OTHER, SELFPAY ==
[2023-11-14 12:11] VITALS: BP 146/79; PULSE 74; RESP 16; O2SAT 95
== END 2023-11-28 23:59 | disposition home or self-care (01) ==
LOC: ONCMED 11:12
PROVIDERS: PCP Nurse Practitioner Family; Visit Provider Internal Medicine Medical Oncology
DX: Z45.2 Encounter for adjustment and management of vascular access device (principal)
CPT/HCPCS: 96523; J1642

== ENCOUNTER 2023-12-18 14:33 | Oncology outpatient (recurring) (ONCR) | payer MEDICARE, OTHER, SELFPAY | END 2023-12-27 23:59 | disposition home or self-care (01) | PROVIDERS: PCP Nurse Practitioner Family; Visit Provider Internal Medicine Medical Oncology | DX: Z45.2 Encounter for adjustment and management of vascular access device (principal) | CPT/HCPCS: 96523; J1642 ==

== ENCOUNTER → 2023-12-20 11:09 | Outpatient (BNVA) | payer MEDICARE, OTHER, SELFPAY | PROVIDERS: PCP Nurse Practitioner Family; Visit Provider Nurse Practitioner Family | DX: I10 Essential (primary) hypertension (principal); I49.8 Other specified cardiac arrhythmias; Z87.891 Personal history of nicotine dependence | CPT/HCPCS: 99214 ==

== ENCOUNTER 2023-12-26 17:28 | Outpatient (CLI) | payer MEDICARE, OTHER, SELFPAY ==
--- NOTE | 2023-12-26 17:32 | CT_ITS ---
WS: [id number] CT NECK WITH CONTRAST HISTORY: NECK MASS, history of lymphoma. TECHNIQUE: Contiguous 2 mm axial images are performed through the neck with intravenous contrast. Sag ittal and coronal reformats are also submitted. All CT scans at [facility] use at least one o f these dose optimization techniques: automated exposure control; mA and/or kV adjustment per patient size (includes targeted exams where dose is matched to clinical indication); or iterative reconstruc tion. CONTRAST: CONTRAST: Omnipaque 350; 100 mL IV. DLP: 122.48 mGy.cm COMPARISON: Cervical spine CT 12/11/2022 Palpable marker along the LEFT neck corresponds to a well-circumscribed nodule which is probably a ly mph node measuring 8 x 10 mm. This lymph node is just superficial to the sternocleidomastoid muscle. There are several other lymph nodes along the cervical chains, greatest on the LEFT which are smaller and normal in appearance. No submandibular or submental lymph nodes. Salivary glands are negative. Oropharynx and nasopharynx are negative. No laryngeal abnormality. Lung apices are clear. Patient has an existing LEFT Port-A-Cath. Thyroid is negative. Anterior cervical fusion from C4-C7. No bone destruction. IMPRESSION: 1. Palpable area along the LEFT cervical chain corresponds to an 8 x 10 superficial lymph node. This lymph node measures only 8 x 10 mm but has not been present on prior studies. There are a few additi onal lymph nodes which are not enlarged. Recommend short-term interval follow-up. Clinically if this nodule continues to increase in size biopsy or surgical removal can be performed. 2. Consider 3-month neck CT follow-up with IV contrast to reevaluate the indeterminate LEFT cervical lymph node and additional lymph nodes.
[2023-12-26] MEDS: iohexol 350 mg/mL 500 mL Btl (per mL) IV (17:51)
== END 2023-12-26 17:29 | disposition home or self-care (01) ==
LOC: RAD 17:28
PROVIDERS: PCP Nurse Practitioner Family; Visit Provider Nurse Practitioner Family
DX: R22.1 Localized swelling, mass and lump, neck (principal); Z85.79 Personal history of other malignant neoplasms of lymphoid, hematopoietic and related tissues
CPT/HCPCS: 70491; Q9967

== ENCOUNTER 2024-02-14 10:31 | Oncology outpatient (recurring) (ONCR) | payer MEDICARE, OTHER, SELFPAY | END 2024-02-26 23:59 | disposition home or self-care (01) | LOC: ONCMED 10:31 | PROVIDERS: PCP Nurse Practitioner Family; Visit Provider Internal Medicine Medical Oncology | DX: Z45.2 Encounter for adjustment and management of vascular access device (principal) | CPT/HCPCS: 96523 ==

== ENCOUNTER 2024-02-20 11:33 | Outpatient (CLI) | payer MEDICARE, OTHER, SELFPAY ==
[2024-02-21 13:04] LABS: Lymphoma Profile (BBPL) See Report
== END 2024-02-20 11:34 | disposition home or self-care (01) ==
LOC: LAB 11:34
PROVIDERS: PCP Nurse Practitioner Family; Visit Provider Specialist
DX: R22.1 Localized swelling, mass and lump, neck (principal)
CPT/HCPCS: 88184; 88185

== ENCOUNTER 2024-03-13 11:22 | Oncology outpatient (recurring) (ONCR) | payer MEDICARE, OTHER, SELFPAY | END 2024-03-28 23:59 | disposition home or self-care (01) | PROVIDERS: PCP Nurse Practitioner Family; Visit Provider Internal Medicine Medical Oncology | DX: Z45.2 Encounter for adjustment and management of vascular access device (principal); Z53.9 Procedure and treatment not carried out, unspecified reason | CPT/HCPCS: 96523 ==

== ENCOUNTER 2024-05-06 10:27 | Oncology outpatient (recurring) (ONCR) | payer MEDICARE, OTHER, SELFPAY | END 2024-05-28 23:59 | disposition home or self-care (01) | LOC: ONCMED 10:28 | PROVIDERS: PCP Nurse Practitioner Family; Visit Provider Internal Medicine Medical Oncology | DX: Z45.2 Encounter for adjustment and management of vascular access device (principal) | CPT/HCPCS: 96523 ==

== ENCOUNTER 2024-06-12 14:30 | Outpatient (RCR) | payer MEDICARE, OTHER, SELFPAY | END 2024-06-28 23:59 | disposition home or self-care (01) | LOC: SPT 14:30 | PROVIDERS: PCP Nurse Practitioner Family; Visit Provider Internal Medicine | DX: Z91.89 Other specified personal risk factors, not elsewhere classified (principal) | CPT/HCPCS: 97110; 97161 ==

== ENCOUNTER 2024-06-13 15:37 | Outpatient (CLI) | payer MEDICARE, OTHER, SELFPAY ==
--- NOTE | 2024-06-13 15:46 | XRR_ITS ---
PROCEDURE INFORMATION: Exam: XR Left Knee Exam date and time: 06/13/2024 3:54 PM Age: 74 years old Clinical indication: Injury or trauma; Fall; Blunt trauma; Knee; Left; Additional info: Pain in left knee TECHNIQUE: Imaging protocol: Radiologic exam of the left knee. Views: 4 or more views. COMPARISON: No relevant prior studies available. FINDINGS: Bones/joints: Moderate tricompartmental osteoarthritis with marginal osteophytes. No evidence of acute fracture or subluxation. No evidence of joint effusion. Soft tissues: No gross soft tissue abnormality. XR/XR knee LT 4V [id number] IMPRESSION: 1. No evidence of acute fracture or subluxation.
== END 2024-06-13 15:38 | disposition home or self-care (01) ==
LOC: RAD 15:42
PROVIDERS: PCP Nurse Practitioner Family; Visit Provider Internal Medicine
DX: M17.12 Unilateral primary osteoarthritis, left knee (principal); W19.XXXA Unspecified fall, initial encounter; M25.562 Pain in left knee
CPT/HCPCS: 73564

== ENCOUNTER 2024-06-17 12:58 | Oncology outpatient (recurring) (ONCR) | payer MEDICARE, OTHER, SELFPAY ==
[2024-06-17 13:21] LABS: Basophils # 0.1 10^3/uL (0.0-0.1); Basophils % 0.9 %; Eosinophils # 0.3 10^3/uL (0.0-0.8); Eosinophils % 5.2 %; Hematocrit 35.5 % (36-47); Lymphocytes # 1.2 10^3/uL (0.8-4.8); Lymphocytes % 20.3 %; Mean Corpuscular HGB Conc 32.4 g/dL (30-55); Mean Corpuscular Hemoglobin 30.7 pg (27-33); Mean Corpuscular Volume 94.9 fl (85-98); Mean Platelet Volume 10.3 fL (7.4-10.4); Monocytes # 0.6 10^3/uL (0.2-0.9); Monocytes % 9.8 %; Neutrophils # 3.71 10^3/uL (1.8-7.7); Neutrophils % 63.6 %; Nucleated Red Blood Cells % 0 %; Platelet Count 236 10^3/cmm (157-399); Red Blood Count 3.74 10^6/uL (3.85-5.65); Red Cell Distribution Width 14.1 % (12.1-15.1); White Blood Count 5.82 10^3/uL (3.29-11.43)
[2024-06-17 13:31] LABS: Alanine Aminotransferase 13 U/L (0-33); Albumin Level 3.9 g/dL (3.5-5.2); Alkaline Phosphatase 48 U/L (35-105); Anion Gap 16.7 (5-19); Aspartate Amino Transferase 17 U/L (0-32); Blood Urea Nitrogen 17 mg/dL (8-23); Calcium 8.8 mg/dL (8.5-10.5); Carbon Dioxide 24 mmol/L (22-29); Chloride 106 mmol/L (98-107); Globulin 2.8 g/dL (1.3-4.6); Glucose 102 mg/dL (65-115); Osmolality Calculated 296 mOsm/kg (285-295); Potassium 4.7 mmol/L (3.5-5.1); Sodium 142 mmol/L (136-145); Total Bilirubin 0.3 mg/dL (0.15-1.2); Total Protein 6.7 g/dL (6.6-8.7)
== END 2024-06-28 23:59 | disposition home or self-care (01) ==
PROVIDERS: Internal Medicine Medical Oncology; PCP Nurse Practitioner Family; Visit Provider Internal Medicine Medical Oncology
DX: C88.4 Extranodal marginal zone B-cell lymphoma of mucosa-associated lymphoid tissue [MALT-lymphoma]; Z92.21 Personal history of antineoplastic chemotherapy; Z92.3 Personal history of irradiation; Z45.2 Encounter for adjustment and management of vascular access device
CPT/HCPCS: 36591; 80053; 85025; 99214

== ENCOUNTER 2024-06-18 14:38 | Outpatient (CLI) | payer MEDICARE, OTHER, SELFPAY ==
--- NOTE | 2024-06-18 14:50 | XRR_ITS ---
PROCEDURE INFORMATION: Exam: XR Chest Exam date and time: 06/18/2024 3:02 PM Age: 74 years old Clinical indication: Cough and wheezing; Prior surgery; Surgery date: 6+ months; Surgery type: Port/rt shoulder/neck/hyst; Patient HX: Wheezing and congestion 7-8 days, HX of lymphoma TECHNIQUE: Imaging protocol: Radiologic exam of the chest. Views: 2 views. COMPARISON: CT chest abdpel w/*[id number] 06/12/2023 8:36 AM FINDINGS: Tubes, catheters and devices: Tip of the left chest wall port projects over the mid SVC. Lungs are clear. Mild focal eventration of the right hemidiaphragm. No acute osseous or soft tissue abnormality. Partially seen cervical ACDF. Lungs: See Tubes, catheters and devices finding. Pleural spaces: Unremarkable. No pleural effusion. No pneumothorax. Heart/Mediastinum: Unremarkable. No cardiomegaly. Bones/joints: See Tubes, catheters and devices finding. XR/XR chest 2V* [id number] IMPRESSION: Lungs are clear.
== END 2024-06-18 14:39 | disposition home or self-care (01) ==
LOC: RAD 14:42
PROVIDERS: PCP Nurse Practitioner Family; Visit Provider Nurse Practitioner Family
DX: J06.9 Acute upper respiratory infection, unspecified (principal)
CPT/HCPCS: 71046

== ENCOUNTER 2024-06-24 10:27 | Outpatient (CLI) | payer MEDICARE, OTHER, SELFPAY ==
--- NOTE | 2024-06-24 10:30 | CT_ITS ---
WS: [email or web address] CT CHEST, ABDOMEN, AND PELVIS TECHNIQUE: Contrast-enhanced CT of the chest, abdomen, and pelvis with coronal and sagittal reformatt ed images. CLINICAL INFORMATION: surveillance COMPARISON: CT chest abdomen pelvis 06/12/2023 DLP: 767.[address] scans at [facility] use at least one of these dose optimization techniques: automated e xposure control; mA and/or kV adjustment per patient size (includes targeted exams where dose is matc hed to clinical indication); or iterative reconstruction. CT CHEST: There are few tiny micronodules and hazy opacities similar in appearance to the prior examinations. N o new suspicious pulmonary parenchymal opacities. No mediastinal or hilar lymphadenopathy. No axillar y lymphadenopathy. Normal caliber thoracic aorta. Aortic calcification. No axillary lymphadenopathy. Moderate thoracic k yphosis and hypertrophic changes thoracic spine. Postoperative changes lower cervical spine. CT ABDOMEN AND PELVIS: Diffuse fatty infiltration of the liver. Normal portal vein and splenic vein. Small esophageal hernia . Normal spleen. Normal pancreas. Adrenal glands are normal. Normal renal parenchymal enhancement. No hydronephrosis in either kidney. Normal caliber abdominal aorta. Vascular calcification. No periaort ic or retroperitoneal lymphadenopathy. Tiny fat-containing umbilical hernia. Normal appendix in the R IGHT lower quadrant. Urine distended bladder. No inguinal adenopathy. CT/CT chest abdpel w/*[id number] IMPRESSION: 1. No adenopathy in the chest abdomen or pelvis. 2. A few hazy opacities in both lungs similar in appearance to prior examinati on. 3. No other significant changes.
[2024-06-24] MEDS: iohexol 350 mg/mL 500 mL Btl (per mL) IV (12:06)
[2024-06-24] MEDS: iohexol 350 mg/mL 500 mL Btl (per mL) PO (12:25)
== END 2024-06-24 10:28 | disposition home or self-care (01) ==
LOC: RAD 10:28
PROVIDERS: PCP Nurse Practitioner Family; Visit Provider Nurse Practitioner Family
DX: C88.4 Extranodal marginal zone B-cell lymphoma of mucosa-associated lymphoid tissue [MALT-lymphoma] (principal); K76.0 Fatty (change of) liver, not elsewhere classified; K44.9 Diaphragmatic hernia without obstruction or gangrene; R91.8 Other nonspecific abnormal finding of lung field
CPT/HCPCS: 71260; 74177; Q9967

== ENCOUNTER 2024-06-29 06:30 | Outpatient (RCR) | payer MEDICARE, OTHER, SELFPAY | END 2024-07-28 23:59 | disposition home or self-care (01) | LOC: SPT 06:30 | PROVIDERS: PCP Nurse Practitioner Family; Visit Provider Internal Medicine | DX: Z91.89 Other specified personal risk factors, not elsewhere classified (principal) | CPT/HCPCS: 97110 ==

== ENCOUNTER 2024-07-15 15:22 | Oncology outpatient (recurring) (ONCR) | payer MEDICARE, OTHER, SELFPAY | END 2024-07-28 23:59 | disposition home or self-care (01) | LOC: ONCMED 15:22 | PROVIDERS: PCP Nurse Practitioner Family; Visit Provider Internal Medicine Medical Oncology | DX: Z45.2 Encounter for adjustment and management of vascular access device ==

== ENCOUNTER 2024-08-19 14:59 | Oncology outpatient (recurring) (ONCR) | payer MEDICARE, OTHER, SELFPAY | END 2024-08-28 23:59 | disposition home or self-care (01) | LOC: ONCMED 14:59 | PROVIDERS: PCP Nurse Practitioner Family; Visit Provider Internal Medicine Medical Oncology | DX: Z45.2 Encounter for adjustment and management of vascular access device (principal) | CPT/HCPCS: 96523 ==

== ENCOUNTER 2024-09-16 14:54 | Oncology outpatient (recurring) (ONCR) | payer MEDICARE, OTHER, SELFPAY | END 2024-09-27 23:59 | disposition home or self-care (01) | LOC: ONCMED 14:55 | PROVIDERS: PCP Nurse Practitioner Family; Visit Provider Internal Medicine Medical Oncology | DX: Z45.2 Encounter for adjustment and management of vascular access device (principal) | CPT/HCPCS: 96523 ==

== ENCOUNTER 2024-10-14 09:15 | Oncology outpatient (recurring) (ONCR) | payer MEDICARE, OTHER, SELFPAY | END 2024-10-28 23:59 | disposition home or self-care (01) | PROVIDERS: PCP Nurse Practitioner Family; Visit Provider Internal Medicine Medical Oncology | DX: Z45.2 Encounter for adjustment and management of vascular access device (principal) | CPT/HCPCS: 96523 ==

== ENCOUNTER 2024-10-16 11:17 | Outpatient (CLI) | payer MEDICARE, OTHER, SELFPAY ==
--- NOTE | 2024-10-16 11:30 | MM_ITS ---
WS: [email or web address] BILATERAL 3D TOMOSYNTHESIS DIGITAL DIAGNOSTIC MAMMOGRAPHY WITH CAD CLINICAL INFORMATION: Z12.39 - Encounter for other screening for malignant neop... HISTORY: RIGHT breast cancer COMPARISON: 2022 TECHNIQUE: Bilateral CC, MLO, and ML views. FINDINGS: Scattered fibroglandular densities bilaterally. Incidental punctate and lucent centered calcification s. No suspicious focal mass, asymmetry, calcifications, or architectural distortion. No evidence of oleg gnancy. Vascular calcification. MM/MM diag tomosynthesis [id number] IMPRESSION: DENSITY: There are scattered areas of fibroglandular density. BI-RADS: 2 - Benign. FOLLOW UP: 1 Year Follow-up Recommend return to annual diagnostic mammography.
== END 2024-10-16 11:18 | disposition home or self-care (01) ==
LOC: RAD 11:17
PROVIDERS: PCP Nurse Practitioner Family; Visit Provider Nurse Practitioner Women's Health
DX: Z85.3 Personal history of malignant neoplasm of breast (principal); R92.1 Mammographic calcification found on diagnostic imaging of breast
CPT/HCPCS: 77062; G0279

== ENCOUNTER 2024-11-18 14:36 | Oncology outpatient (recurring) (ONCR) | payer MEDICARE, OTHER, SELFPAY | END 2024-11-28 23:59 | disposition home or self-care (01) | LOC: ONCMED 14:36 | PROVIDERS: PCP Nurse Practitioner Family; Visit Provider Internal Medicine Medical Oncology | DX: Z45.2 Encounter for adjustment and management of vascular access device (principal) | CPT/HCPCS: 96523 ==

== ENCOUNTER 2025-01-13 14:31 | Oncology outpatient (recurring) (ONCR) | payer MEDICARE, OTHER, SELFPAY | END 2025-01-26 23:59 | disposition home or self-care (01) | LOC: ONCMED 14:31 | PROVIDERS: PCP Nurse Practitioner Family; Visit Provider Internal Medicine Medical Oncology | DX: Z45.2 Encounter for adjustment and management of vascular access device (principal) | CPT/HCPCS: 96523 ==

== ENCOUNTER 2025-02-17 14:27 | Oncology outpatient (recurring) (ONCR) | payer MEDICARE, OTHER, SELFPAY ==
[2025-02-17] MEDS: alteplase 1 mg/mL SDV 2 mL 2 MG INTRACATH (15:29)
== END 2025-02-25 23:59 | disposition home or self-care (01) ==
LOC: ONCMED 14:28
PROVIDERS: PCP Nurse Practitioner Family; Visit Provider Internal Medicine Medical Oncology
DX: Z95.828 Presence of other vascular implants and grafts (principal)
CPT/HCPCS: 36593; J2997

== ENCOUNTER 2025-04-14 14:22 | Oncology outpatient (recurring) (ONCR) | payer MEDICARE, OTHER, SELFPAY | END 2025-04-27 23:59 | disposition home or self-care (01) | PROVIDERS: PCP Nurse Practitioner Family; Visit Provider Internal Medicine Medical Oncology | DX: Z45.2 Encounter for adjustment and management of vascular access device (principal); Z95.828 Presence of other vascular implants and grafts | CPT/HCPCS: 96523 ==

== ENCOUNTER 2025-05-19 14:28 | Oncology outpatient (recurring) (ONCR) | payer MEDICARE, OTHER, SELFPAY | END 2025-05-28 23:59 | disposition home or self-care (01) | LOC: ONCMED 14:28 | PROVIDERS: PCP Nurse Practitioner Family; Visit Provider Internal Medicine Medical Oncology | DX: Z45.2 Encounter for adjustment and management of vascular access device (principal); Z95.828 Presence of other vascular implants and grafts | CPT/HCPCS: 96523 ==

== ENCOUNTER → 2025-06-08 15:57 | Outpatient (BNVA) | payer MEDICARE, OTHER, SELFPAY | PROVIDERS: PCP Nurse Practitioner Family; Visit Provider Internal Medicine Cardiovascular Disease | DX: I10 Essential (primary) hypertension (principal); I49.9 Cardiac arrhythmia, unspecified; I44.7 Left bundle-branch block, unspecified; R93.1 Abnormal findings on diagnostic imaging of heart and coronary circulation | CPT/HCPCS: 99214 ==

== ENCOUNTER 2025-06-18 15:07 | Oncology outpatient (recurring) (ONCR) | payer MEDICARE, OTHER, SELFPAY ==
[2025-06-11 13:47] LABS: Hematocrit 35.3 % (36-47); Hemoglobin 11.70 g/dL (11.27-16.99); Mean Corpuscular HGB Conc 33.1 g/dL (30-55); Mean Corpuscular Hemoglobin 31.4 pg (27-33); Mean Corpuscular Volume 94.6 fl (85-98); Nucleated Red Blood Cells % 0 %; Platelet Count 224 10^3/cmm (157-399); Red Blood Count 3.73 10^6/uL (3.85-5.65); White Blood Count 5.20 10^3/uL (3.29-11.43)
[2025-06-11 14:12] LABS: Alanine Aminotransferase 20 U/L (0-33); Albumin Level 4.2 g/dL (3.5-5.2); Alkaline Phosphatase 80 U/L (35-105); Aspartate Amino Transferase 23 U/L (0-32); Blood Urea Nitrogen 28 mg/dL (8-23); Calcium 9.1 mg/dL (8.5-10.5); Carbon Dioxide 25 mmol/L (22-29); Chloride 104 mmol/L (98-107); Creatinine Clr Calc Pharmacy 47.9798; Globulin 2.5 g/dL (1.3-4.6); Glucose 93 mg/dL (65-115); Osmolality Calculated 295 mOsm/kg (285-295); Sodium 140 mmol/L (136-145); Total Protein 6.7 g/dL (6.6-8.7)
[2025-06-11 14:15] LABS: Anion Gap 15.6 (5-19); Potassium 4.6 mmol/L (3.5-5.1)
--- NOTE | 2025-06-18 15:10 | XR_ITS ---
WS: [email or web address] SCREENING DEXA SCAN [employer] CLINICAL INFORMATION: SCREENING/POSTMENOPAUSAL STATUS COMPARISON: 2022 FINDINGS: The L1-L4 bone mineral density measures 1.501 g/cm2. This corresponds to a T score score of 2.7 and Z score of 4.3. Left femoral neck bone mineral density measures 1.106 g/cm2. This corresponds to a T score of 0.8 and Z score of 2.4. Right femoral neck bone mineral density measures 1.081 g/cm2. This corresponds to a T score 0.6of and Z score of 2.2. Mean femoral neck bone mineral density measures 1.094 g/cm2. This corresponds to a T score of 0.7 and Z score of 2.3. XR/XR DEXA axial skeleton* [id number] IMPRESSION: Normal bone mineralization. Patient's FRAX calculated 10 year probability for major osteoporotic fracture i s 8.4% and osteoporotic hip fracture is 1.0%. Bone density lumbar spine increased 1.5% Bone density femoral necks increased 1.3%
== END 2025-06-28 23:59 | disposition home or self-care (01) ==
LOC: ONCMED 16:26 → RAD 06-19 00:01
PROVIDERS: Nurse Practitioner Family; PCP Nurse Practitioner Family; Visit Provider Internal Medicine
DX: Z78.0 Asymptomatic menopausal state; Z53.9 Procedure and treatment not carried out, unspecified reason
CPT/HCPCS: 36591; 77080; 80053; 83615; 85025; 99214

== ENCOUNTER 2025-07-23 12:48 | Oncology outpatient (recurring) (ONCR) | payer MEDICARE, OTHER, SELFPAY | END 2025-07-28 23:59 | disposition home or self-care (01) | LOC: ONCMED 12:49 | PROVIDERS: PCP Nurse Practitioner Family; Visit Provider Internal Medicine | DX: Z45.2 Encounter for adjustment and management of vascular access device (principal) | CPT/HCPCS: 96523 ==

== ENCOUNTER 2025-09-03 12:50 | Oncology outpatient (recurring) (ONCR) | payer MEDICARE, OTHER, SELFPAY | END 2025-09-27 23:59 | disposition home or self-care (01) | LOC: ONCMED 12:50 | PROVIDERS: PCP Nurse Practitioner Family; Visit Provider Internal Medicine | DX: Z45.2 Encounter for adjustment and management of vascular access device (principal); Z95.828 Presence of other vascular implants and grafts | CPT/HCPCS: 96523 ==

== ENCOUNTER 2025-09-18 06:22 | Emergency (ER) | payer MEDICARE, OTHER, SELFPAY ==
--- OUTSIDE RECORDS SUMMARY | 2025-09-18 06:28 | XMS_ITS | Encounter Summary ---
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 Name Role Phone Robbin Gay MD Primary Care Provider [phone] Encounter Details Date Type Department Care Team (Latest Contact Info) Description 08/21/2003 Outpatient Historical [facility] Sylvester Zuniga MD [address] [place] [address] CERVICALGIA (Primary Dx); ESOPHAGEAL REFLUX; ELEV BL PRES W/O HYPERTN Social History Tobacco Use Types Packs/Day Years Used Date Smoking Tobacco: Never Assessed Comments Unknown Sex and Gender Information Value Date Recorded Sex Assigned at Not on file Legal Sex Female 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
--- OUTSIDE RECORDS SUMMARY | 2025-09-18 06:28 | XMS_ITS | Clinical Summary ---
Author Organization [facility] Address [address] [facility] Attn: [place] [address] Care Team Providers Care Crew Manager Name Role Phone Robbin Gay MD Primary Care Provider [phone] Allergies No known active allergies Encounters Date Type Department Care Team Description 08/19/2025 External Device Data [facility] ABSTRACTION Provider, Abstract 08/18/2025 External Device Data [facility] ABSTRACTION Provider, Abstract 07/14/2025 External Device Data [facility] ABSTRACTION Provider, Abstract 07/14/2025 External Device Data [facility] ABSTRACTION Provider, Abstract 07/07/2025 External Device Data [facility] ABSTRACTION Provider, Abstract from Last 3 Months Immunizations Immunization Administration Dates Next Due Hepatitis B Vaccine 06/17/2002,01/17/2002,2001 Family History Medical History Relation Name Comments Cataract Father Cataract Mother Cancer Other grad daughter Macular Degen Sister Relation Name Status Comments Father Mother Other grad daughter Alive Sister Social History Tobacco Use Types Packs/Day Years Used Date Smoking Tobacco: Former Smokeless Tobacco: Never Alcohol Use Standard Drinks/Week Comments No 0 (1 standard drink = 0.6 oz pur e alcohol) Comments Unknown Sex and Gender Information Value Date Recorded Sex Assigned at Not on file 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
--- NOTE | 2025-09-18 06:29 | ECG_ITS ---
[facility] Date: 2025-09-18 Pat Name: Aniyah Drew Department: Room: Gender: Female Manager Golf: : 1950 Requested By: Melquiades Forrest Order Number: [id number] Darrin MD: Dilia Patino M.D. 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 [email or web address]
--- OUTSIDE RECORDS SUMMARY | 2025-09-18 06:29 | XMS_ITS | Clinical Summary ---
Author Organization [facility] Address [address] [facility] [place] [address] Care Team Providers Care Harvest Manager Name Role Phone Robbin Gay MD Primary Care Provider [phone] Allergies No known active allergies Medications conjugated estrogens (PREMARIN) 0.625 mg Oral tablet Take by mouth. 1 daily Active lansoprazole (PREVACID) 15 mg Oral CpDR Take by mouth. Daily Active alprazolam (XANAX) 0.25 mg Oral tablet Take by mouth. 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 Gender Identity Not on file Sexual Orientation Not on file Last Filed Vital Signs Vital Sign Reading Time Taken Comments Blood Pressure 157/77 06/28/2011 11:00 AM CDT Pulse 70 06/28/2011 11:00 AM CDT Temperature - - Respiratory Rate - - Oxygen Saturation - - Inhaled Oxygen Concentration - - Weight 63.5 kg (140 lb) 06/28/2011 11:00 AM CDT Height 149.9 cm (4' 11 ) 06/28/2011 11:00 AM CDT Body Mass Index 28.28 06/28/2011 11:00 AM CDT Plan of Treatment Health Maintenance Due Date Last Done Comments DTAP/TDAP/TD VACCINES (1 - Tdap) 1968 PNEUMOCOCCAL VACCINE 50+ YEARS (1 of 1 - PCV) 03/25/19 99 ZOSTER VACCINE (1 of 2) 1999 OSTEOPOROSIS SCREENING 2014 RSV VACCINE (60+ or ) (1 - 1-dose 75+ series) 2024 INFLUENZA VACCINE (#1) 2025 Insurance [place] [id number] [facility] Care Teams Harvest Manager Relationship Specialty Start Date End Date Robbin Gay MD [address] [place] [phone] PCP - General Family Practice 03/29/11
--- OUTSIDE RECORDS SUMMARY | 2025-09-18 06:29 | XMS_ITS | Encounter Summary ---
Author Organization [facility] Address [address] [place] [address] Care Team Providers Care Private Secretary Name Role Phone Robbin Gay MD Primary Care Provider [phone] Reason for Referral * Outpatient Services (Urgent) - Closed Specialty Diagnoses / Procedures Referred By Contac t Referred To Contact Radiology Diagnoses Lymphoma (CMS/HCC) Procedures PET TUMOR IMG W CT SKL BSE MID THG Mahesh Quijano MD [address] [place] [phone] Phone: tel: fax: [facility] Nuclear Medicine [address] [place] [phone] Phone: tel: fax: Referral ID Status Reason Start Date Expiration Date V isits Requested Visits Authorized [id number] Closed F [facility] TO SCHEDULE (SGF) 08/21/2013 09/21/2013 1 1 Encounter Details Date Type Department Care Team (Late st Contact Info) Description 08/21/2013 Ancillary Orders [facility] Pre-Registration Emblem CALL TO MAKE APPOINTMENT ONLY [address] [place] [address] Mahesh Quijano MD [address] [place] [address] Lymphoma (CMS/HCC) (Primary Dx) Social History Tobacco Use Types Packs/Day Years Used Date Smoking Tobacco: Former Smokeless Tobacco: Never Alcohol Use Standard Drinks/Week Comments No 0 (1 standard drink = 0.6 oz pur e alcohol) Comments Unknown Sex and Gender Information Value Date Recorded Sex Assigned at Not on file 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 1. Multiple soft tissue findings involving lymph nodes, pulmonary nodules, right breast, subcutaneous fat densities and muscle may reflect foci of lymphomatous involvement or nonspecific inflammation. 2. The overall tumor burden would be low. This laboratory has been accredited by the Intersocietal Commission for the Accreditation of Nuclear Medicine Laboratories (ICANL). Narrative 08/29/2013 5:33 PM CDT Radionuclide PET Metabolic Tumor Imaging with CT Attenuation Correction and Anatomic Localization from Skull Base to Mid Thigh: Radiopharmaceutical: [id number] Dose: 12.5 mCi right antecubital IV Time of Injection: 1410 hrs Clinical Indication: Subsequent treatment strategy to evaluate lymphoma status post radiation therapy five years previously for restaging evaluation FDG ([id number]) PET imaging was performed at 1508 hrs approximately one hour following intravenous infusion of the radiopharmaceutical agent using an integrated 16-slice PET/CT scanner. A nondiagnostic CT scan was performed for attenuation correction of PET data and for anatomic localization. No contrast was administered. Imaging was performed from the skull base to mid thigh levels with subsequent reconstruction of full trunk, orthogonal view slices in transverse, sagittal, and coronal projections which were reviewed along with dynamic multiimage planar and non attenuation corrected sagittal views. Blood glucose at the time of tracer injection was 78 mg/dl with normal biodistribution of tracer. The quality of this examination is excellent. No previous examination at this institution for comparison. A previous outside examination is not a available for review or by report for comparison. Head/Neck: Physiologic metabolic activity in basal brain and head/neck structures. Thorax: A 9 mm right supraclavicular lymph node demonstrates moderate increase of metabolic activity with maximal SUV value of 2.33. Smaller pretracheal lymph nodes demonstrate a maximal SUV value of 2.57. There is a 1.4 by 0.9 cm density in the posterior segment of the right lower lobe demonstrating minimal increase of metabolic activity with a maximal SUV value of 1.09 compared to adjacent normal lung of 0.72 and mediastinal blood pool of 2.72. Just peripheral two this is a subpleural nodule posteriorly. No other pulmonary parenchymal or mediastinal abnormalities are identified. The right breast demonstrates soft tissue densities with focally increased metabolic activity the greatest of which lies in the upper outer quadrant with a maximal SUV value of 1.08 and lies nearer to the chest wall than the surface. Abdomen/Pelvis: A small pancreatic lymph node demonstrates a maximal SUV value of 3.79. A 1.8 cm mesenteric nodule which appears to be adjacent or within the small bowel is present in the mid abdomen just to the right of midline with a maximal SUV value of 5.1. No other abnormalities are observed in solid organs and other structures of the abdomen and pelvis. Multiple subcutaneous tissue densities are present in the fat of the buttocks with low level metabolic activity in the range of a maximal SUV value of 1.85. Fat densities are present in the thighs with the most intense on the left side with a maximal SUV value of 3.41. Left posterior muscle focal increase of metabolic activity is also present with a maximal SUV value of 4.58. Small right anterior medial thigh lymph nodes demonstrate a maximal SUV value of 2.69. Musculoskeletal: There is bilateral trochanteric bursitis with no evidence for osseous metastasis. Procedure Note Madi Waters MD - 08/29/2013 Radionuclide PET Metabolic Tumor Imaging with CT Attenuation Correction and Anatomic Localization from Skull Base to Mid Thigh: Radiopharmaceutical: [id number] Dose: 12.5 mCi right antecubital IV Time of Injection: 1410 hrs Clinical Indication: Subsequent treatment strategy to evaluate lymphoma status post radiation therapy five years previously for restaging evaluation FDG ([id number]) PET imaging was performed at 1508 hrs approximately one hour following intravenous infusion of the radiopharmaceutical agent using an integrated 16-slice PET/CT scanner. A nondiagnostic CT scan was performed for attenuation correction of PET data and for anatomic localization. No contrast was administered. Imaging was performed from the skull base to mid thigh levels with subsequent reconstruction of full trunk, orthogonal view slices in transverse, sagittal, and coronal projections which were reviewed along with dynamic multiimage planar and non attenuation corrected sagittal views. Blood glucose at the time of tracer injection was 78 mg/dl with normal biodistribution of tracer. The quality of this examination is excellent. No previous examination at this institution for comparison. A previous outside examination is not a available for review or by report for comparison. Head/Neck: Physiologic metabolic activity in basal brain and head/neck structures. Thorax: A 9 mm right supraclavicular lymph node demonstrates moderate increase of metabolic activity with maximal SUV value of 2.33. Smaller pretracheal lymph nodes demonstrate a maximal SUV value of 2.57. There is a 1.4 by 0.9 cm density in the posterior segment of the right lower lobe demonstrating minimal increase of metabolic activity with a maximal SUV value of 1.09 compared to adjacent normal lung of 0.72 and mediastinal blood pool of 2.72. Just peripheral two this is a subpleural nodule posteriorly. No other pulmonary parenchymal or mediastinal abnormalities are identified. The right breast demonstrates soft tissue densities with focally increased metabolic activity the greatest of which lies in the upper outer quadrant with a maximal SUV value of 1.08 and lies nearer to the chest wall than the surface. Abdomen/Pelvis: A small pancreatic lymph node demonstrates a maximal SUV value of 3.79. A 1.8 cm mesenteric nodule which appears to be adjacent or within the small bowel is present in the mid abdomen just to the right of midline with a maximal SUV value of 5.1. No other abnormalities are observed in solid organs and other structures of the abdomen and pelvis. Multiple subcutaneous tissue densities are present in the fat of the buttocks with low level metabolic activity in the range of a maximal SUV value of 1.85. Fat densities are present in the thighs with the most intense on the left side with a maximal SUV value of 3.41. Left posterior muscle focal increase of metabolic activity is also present with a maximal SUV value of 4.58. Small right anterior medial thigh lymph nodes demonstrate a maximal SUV value of 2.69. Musculoskeletal: There is bilateral trochanteric bursitis with no evidence for osseous metastasis. IMPRESSION IMPRESSION: Abnormal examination. 1. Multiple soft tissue findings involving lymph nodes, pulmonary nodules, right breast, subcutaneous fat densities and muscle may reflect foci of lymphomatous involvement or nonspecific inflammation. 2. The overall tumor burden would be low. This laboratory has been accredited by the Intersocietal Commission for the Accreditation of Nuclear Medicine Laboratories (ICANL). Mahesh Quijano MD PE ORDERABLES Final Result documented in this encounter Visit Diagnoses Diagnosis Lymphoma (CMS/HCC)- Primary Other malignant lymphomas, unspecified site, extranodal and solid organ sites Lymphoma (CMS/HCC) Other malignant lymphomas, unspecified site, extranodal and solid organ sites documented in this encounter Care Teams Private Secretary Relationship Specialty Start Date End Date Robbin Gay MD [address] [place] [address] PCP - General Family Practice 03/29/11 documented as of this encounter
--- OUTSIDE RECORDS SUMMARY | 2025-09-18 06:29 | XMS_ITS | Patient Health Record ---
Author Organization [facility] Address [address] [place] [address] Care Team Providers Care Water Proofer Name Role Phone Dg Alcala Primary Care Provider Loy Hurtado [phone] Allergies Allergen (clinical drug ingredient) Drug/Non Drug Allergy documented on EMR Reaction Allergy Type Onset Date Status No Known Drug Allergy Unknown Drug Allergy Active Reason For Referral No Information Medications Medication SIG (Take, Route, Frequency, Duration) Notes Start Date End Date Status predniSONE 10 MG Tablet Take 1/2-1 Orall y PRN Once a day Active Ibuprofen 600 MG Tablet 1 tablet with fo od or milk as needed Orally BID PRN Not-Taking Pantoprazole Sodium 20 MG Tablet Delayed Release 1 tablet Orally Once a day Active FLUoxetine HCl 20 MG Capsule 1 capsule Orally Once a day Not-Taking Cetirizine HCl 10 MG Tablet 1 tablet Orally Once a day Active DULoxetine HCl 30 MG Capsule Delayed Release Particles 1 capsule Orally Twice a day Active Estradiol 0.5 MG Tablet 1 tablet Orally Once a day Active Clobetasol Prop Emollient Base 0.05 % Cream 1 application Externally 2 times Weekly Active Xanax 0.25 MG Tablet 1 tablet Orally Twi ce a day PRN Active Acyclovir 800 MG Tablet 1 tablet Orally Daily Active Lansoprazole 15 MG Capsule Delayed Release 1 capsule before a meal Orally Once a day Not-Taking Timolol Maleate 0.5 % Solution 1 drop into affected eye Ophthalmic Twice a day Active Ocuvite Not-Taking Social History Tobacco Use: Social History Observation Description Date Details (start date - stop date) Former Smoker NA - NA Social History Tobacco Use: Social Info Question Answer Notes xTobacco Use/Smoking Are you a former smoker Problems Problem Type SNOMED Code ICD Code Onset Dates Problem Status W/U Status Risk Notes Problem Marginal zone 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 Plan Of Treatment No Information Insurance Providers Payer Name Payer Address Payer Phone Subscriber Number Group Number Insured Name Patient Relationship to Insured Coverage Start Date Coverage End Date [place] [address] [address] [place] [address] [id number] Aniyah Drew Self - patient is the insured [employer] [facility] [address] [place] [phone] [id number] Aniyah Drew Self - patient is the insured Medical (General) History Medical History History ICD Code Gerd Arthritis Hypercholesterolemia Anxiety Depression Measles Mumps Chicken Pox Anemia Cancer Glaucoma Back Trouble Hemorrhoids Cataracts Surgical History Surgery Date(Month/Year) Shoulder Surgery Dr Chapman 11/2020 Neck Surgery C 2-3 [facility] 2015 GI Endoscopy Unilateral Oophorectomy 1989 Hysterectomy Hospitalization History Reason Date(Month/Year) Surgical hx
[2025-09-18 06:32] VITALS: BP 150/92; PULSE 84; RESP 18; TEMP 36.5; O2SAT 97; BMI 29.2
--- NOTE | 2025-09-18 06:33 | W.ED.GENADLT ---
HPI - General Adult General: Chief complaint: Nausea/Vomiting/Diarrhea Stated complaint: NVD (10xdays) Time Seen by Provider: 09/18/25 06:29 History of Present Illness: 75-year-old female presents emergency room complaining of nausea abdominal pain with diarrhea. She states has been ongoing for the last 10 days. She usually has issues with constipation she had been on MiraLAX but had stopped that already. She denies any medic easier melena. She has been nauseous but no significant vomiting. No abdominal pain at this time. Has not been on any antibiotics in the last month. Denies chest pain or shortness of breath. No history of any irritable bowel Crohn's or ulcerative colitis Associated symptoms: Reports nausea; Deny chest pain, dyspnea, rash or vomiting Related Data Home Medications ?Medication ?Instructions ?Recorded ?Confirmed cetirizine 10 mg tablet (Zyrtec) 10 mg PO QAM 05/04/20 06/11/25 acyclovir 800 mg tablet 800 mg PO BEDTIME 12/11/22 06/11/25 [id number] 250 mg-dha 90 1 cap PO QAM 12/11/22 06/11/25 mg-epa 160 [id number] capsule (Ocuvite Adult 50 Plus) prednisone 10 mg tablet 5 - 10 mg PO DAILY PRN arthritis 12/11/22 06/11/25 pain levothyroxine 25 mcg tablet See Rx Instructions PO DAILY 05/29/23 06/11/25 (Synthroid) cholecalciferol (vitamin D3) 50 50 mcg PO .weekly 06/19/23 06/11/25 mcg (2,000 unit) capsule meloxicam 7.5 mg tablet 7.5 mg PO BID 09/30/24 06/11/25 Previous Rx's ?Medication ?Instructions ?Recorded pantoprazole 40 mg tablet,delayed See Rx Instructions .Route 01/15/23 release .COMPLEX #90 tabs alprazolam 0.25 mg tablet 0.25 mg PO BID #60 tabs 07/03/23 duloxetine 30 mg capsule,delayed See Rx Instructions .Route 07/03/23 release .COMPLEX #180 caps clobetasol 0.05 % topical cream See Rx Instructions .Route 10/14/24 .COMPLEX #60 grams estradiol 0.5 mg tablet See Rx Instructions .Route 06/12/25 .COMPLEX #90 tabs amlodipine 5 mg tablet 5 mg PO DAILY #90 tabs 07/20/25 metoprolol tartrate 50 mg tablet 50 mg PO Q12H #180 tabs 08/06/25 ondansetron HCl 4 mg tablet 4 mg PO Q6H PRN nausea and 09/18/25 vomiting #20 tabs Allergies Allergy/AdvReac Type Severity Reaction Status Date / Time No Known Allergies Allergy Verified 06/08/25 16:06 Review of Systems Const: Denies: fever(s) or chills Card: Denies: chest pain Resp: Denies: dyspnea GI: Reports: nausea and diarrhea; Denies: abdominal pain, vomiting, hematemesis, coffee ground emesis, hematochezia or melena : Denies: dysuria, urinary frequency or urinary urgency Musc: Denies: neck pain or back pain Skin/Breast: Denies: rash PFSH ED PFSH: Medical History Anxiety and depression Diagnosed in 2019 and well-controlled with medication managed by primary care provider. She does not have a therapist or psychiatrist. No pertinent past medical history Denies diabetes, asthma, hypertension, seizures, DVT/PE PCP: Dr. Alcala GERD (gastroesophageal reflux disease) History of lymphoma Diagnosed initially with lymphoma and received radiation. 5 years later had lymphoma on the breast and received chemotherapy. She follows up with Dr. Quijano. In 2019 had lymphoma noted again and received 8 rounds of chemotherapy. -----> follows with Dr. Quijano every year he said he gets he can Surgical History S/P rotator cuff repair right shoulder, performed in November [address] Limon at [facility] – [place], [place]. Status post colonoscopy (08/17/20) Repeat in 10 years History of cervical spinal surgery July 2016--spinal fusion by Dr. Irizarry History of hysterectomy 1979--total vaginal hysterectomy with right salpingo-oophorectomy. Had an exploratory laparotomy done immediately after for bleeding. Family History Father Hypertension Heart disease Sister Hyperlipidemia Lung cancer Denies family history of Colon cancer Ovarian cancer Diabetes Breast cancer Uterine cancer Thyroid disease Stroke Social History Smoking and tobacco/nicotine status: never used tobacco/nicotine Quit status (tobacco/nicotine): has quit using Year quit tobacco: Quit 40 years ago Former quit date comment: Smoked for 10 years Alcohol intake: never Substance/Drug Use: never Physical Exam Const: GENERAL APPEARANCE: cooperative ORIENTATION/CONSCIOUSNESS: Yes awake, Yes oriented to person, Yes oriented to place and Yes oriented to time HENMT: COMMON NORMALS: normocephalic, atraumatic and hearing grossly normal bilaterally HEAD & SCALP: normocephalic and atraumatic Resp: COMMON NORMALS: normal respiratory effort, No retractions, No use of accessory muscles and clear to auscultation bilaterally AUSCULTATION: clear to auscultation bilaterally Cardio: COMMON NORMALS: regular rate, regular rhythm and No murmurs present (Cardio) RATE: regular rate RHYTHM: regular rhythm GI: COMMON NORMALS: Soft to palpation and No hepatosplenomegaly present AUSCULTATION: Yes normoactive bowel sounds PALPATION: Yes Soft to palpation, No Tenderness to palpation present (GI), No Guarding due to palpation present (GI) and Yes No hepatosplenomegaly present OTHER: Hemoccult negative Extremity: COMMON NORMALS: normal to inspection, capillary refill normal, no clubbing, cyanosis or edema, no calf tenderness and no pedal edema Neuro: SENSORIUM/ORIENTATION: Yes oriented to person, Yes oriented to place and Yes oriented to time Skin: COMMON NORMALS: no rashes or lesions noted GENERAL SKIN EXAM: no rashes or lesions noted Course Vital Signs: Vital signs: Vital Signs Temperature 97.7 F 09/18/25 06:32 Pulse Rate 82 09/18/25 08:58 Respiratory Rate 16 09/18/25 08:58 Blood Pressure 146/82 09/18/25 07:41 Pulse Oximetry 95 09/18/25 08:58 Oxygen Delivery Me thod Room Air 09/18/25 08:58 [facility] - General Adult Medical Decision Making Hemoccult is negative. C. difficile is negative. Stool cultures are pending. Laboratory studies show mild elevation of creatinine but otherwise remainder of her studies are unremarkable. Her abdominal exam was benign. Will discharge patient home have her follow-up with her primary care doctor early next week. Continue to hold on the MiraLAX. Liquid diet for the next several days and advance as tolerated if has any fever or develops blood in the stool return to the emergency room Medical Records I reviewed the patient's medical records. Lab Data I reviewed the patient's lab results. 09/18/25 06:38 09/18/25 06:38 Laboratory Results WBC 8.17 10^3/uL (3.29-11.43) 09/18/25 06:38 RBC 4.16 10^6/uL (3.85-5.65) 09/18/25 06:38 Hgb 12.70 g/dL (11.27-16.99) 09/18/25 06:38 Hct 38.1 % (36-47) 09/18/25 06:38 MCV 91.6 fl (85-98) 09/18/25 06:38 MCH 30.5 pg (27-33) 09/18/25 06:38 MCHC 33.3 g/dL (30-55) 09/18/25 06:38 RDW 13.3 % (12.1-15.1) 09/18/25 06:38 Plt Count 245 10^3/cmm (157-399) 09/18/25 06:38 MPV 11.0 fL (7.4-10.4) H 09/18/25 06:38 Neut % (Auto) 69.0 % 09/18/25 06:38 Lymph % (Auto) 15.9 % 09/18/25 06:38 [place] % (Auto) 12.0 % 09/18/25 06:38 Eos % (Auto) 2.9 % 09/18/25 06:38 Baso % (Auto) 0.1 % 09/18/25 06:38 Neut # (Auto) 5.63 10^3/uL (1.8-7.7) 09/18/25 06:38 Lymph # (Auto) 1.3 10^3/uL (0.8-4.8) 09/18/25 06:38 [place] # (Auto) 1.0 10^3/uL (0.2-0.9) H 09/18/25 06:38 Eos # (Auto) 0.2 10^3/uL (0.0-0.8) 09/18/25 06:38 Baso # (Auto) 0.0 10^3/uL (0.0-0.1) 09/18/25 06:38 Nucleated RBC % (auto) 0 % 09/18/25 06:38 Nucleated RBCs # 0.0 /100WBC 09/18/25 06:38 Sodium 139 mmol/L (136-145) 09/18/25 06:38 Potassium 3.6 mmol/L (3.5-5.1) 09/18/25 06:38 Chloride 106 mmol/L (98-107) 09/18/25 06:38 Carbon Dioxide 17 mmol/L (22-29) L 09/18/25 06:38 Anion Gap 19.6 (5-19) H 09/18/25 06:38 BUN 23 mg/dL (8-23) 09/18/25 06:38 Creatinine 1.2 mg/dL (0.5-0.9) H 09/18/25 06:38 GFR Calculation Not Reportable 09/18/25 06:38 Glucose 102 mg/dL (65-115) 09/18/25 06:38 Calculated Osmolality 292 mOsm/kg (285-295) 09/18/25 06:38 Calcium 9.3 mg/dL (8.5-10.5) 09/18/25 06:38 Total Bilirubin 0.3 mg/dL (0.15-1.2) 09/18/25 06:38 AST 14 U/L (0-32) 09/18/25 06:38 ALT 12 U/L (0-33) 09/18/25 06:38 Alkaline Phosphatase 37 U/L (35-105) 09/18/25 06:38 Total Protein 7.0 g/dL (6.6-8.7) 09/18/25 06:38 Albumin 4.5 g/dL (3.5-5.2) 09/18/25 06:38 Globulin 2.5 g/dL (1.3-4.6) 09/18/25 06:38 Lipase 49 U/L (13-60) 09/18/25 06:38 Urine Color Yellow (Yellow) 09/18/25 07:59 Urine Appearance Clear (CLEAR) 09/18/25 07:59 Urine pH 5.5 (5-7) 09/18/25 07:59 Ur Specific [place] 1.006 (1.005-1.030) 09/18/25 07:59 Urine Protein Negative (Negative) 09/18/25 07:59 Urine Glucose (UA) Negative (Normal) 09/18/25 07:59 Urine Ketones Negative (Negative) 09/18/25 07:59 Urine Blood Negative (Negative) 09/18/25 07:59 Urine Nitrate Negative (Negative) 09/18/25 07:59 Urine Bilirubin Negative (Negative) 09/18/25 07:59 Urine Urobilinogen 0.2 mg/dL (Negative) 09/18/25 07:59 Ur Leukocyte Esterase Negative (Negative) 09/18/25 07:59 Urine RBC 3-5 /hpf (0-2) 09/18/25 07:59 Urine WBC 0-5 /hpf (0-5) 09/18/25 07:59 Ur Squamous Epith Cells 0-5 /hpf (0-5) 09/18/25 07:59 Amorphous Sediment Not Reportable 09/18/25 07:59 Urine Bacteria None seen /hpf (NONE) 09/18/25 07:59 Hyaline Casts 0.40 /lpf 09/18/25 07:59 C. difficile (PCR) Negative (Negative) 09/18/25 07:59 No radiology studies performed this visit EKG Data EKG 1: I personally reviewed and interpreted this EKG as follows: Interpretation: EKG 09/18/2025 7:04 AM sinus rhythm rate of 78 SC interval 197 QTc 460. No acute ST changes noted. Compared to EKG 03/27/2023 no acute changes. Discharge Plan Discharge Patient Disposition: Home Clinical Impression: Diarrhea Condition: Stable Prescriptions: New ondansetron HCl 4 mg tablet 4 mg PO Q6H PRN (Reason: nausea and vomiting) Qty: 20 0RF No Action levothyroxine [Synthroid] 25 mcg tablet See Rx Instructions PO DAILY Rx Instructions: dosage unknown orally daily; cholecalciferol (vitamin D3) 50 mcg (2,000 unit) capsule 50 mcg PO .weekly meloxicam 7.5 mg tablet 7.5 mg PO BID pantoprazole 40 mg tablet,delayed release (DR/EC) See Rx Instructions .ROUTE .COMPLEX Qty: 90 3RF Dose Instruction: TAKE 1 TABLET BY MOUTH EVERY DAY FOR STOMACH Rx Instructions: TAKE 1 TABLET BY MOUTH EVERY DAY FOR STOMACH duloxetine 30 mg capsule,delayed release(DR/EC) See Rx Instructions .ROUTE .COMPLEX Qty: 180 3RF Dose Instruction: TAKE 1 CAPSULE BY MOUTH TWICE A DAY Rx Instructions: TAKE 1 CAPSULE BY MOUTH TWICE A DAY alprazolam 0.25 mg tablet 0.25 mg PO BID Qty: 60 5RF clobetasol 0.05 % cream See Rx Instructions .ROUTE .COMPLEX Qty: 60 4RF Dose Instruction: APPLY TO THE AFFECTED AREA(S) TWICE A WEEK DIRECTED Rx Instructions: APPLY TO THE AFFECTED AREA(S) TWICE A WEEK DIRECTED estradiol 0.5 mg tablet See Rx Instructions .ROUTE .COMPLEX Qty: 90 5RF Dose Instruction: TAKE 1 TABLET BY MOUTH IN THE MORNING Rx Instructions: TAKE 1 TABLET BY MOUTH IN THE MORNING amlodipine 5 mg tablet 5 mg PO DAILY Qty: 90 3RF metoprolol tartrate 50 mg tablet 50 mg PO Q12H Qty: 180 3RF cetirizine [Zyrtec] 10 mg Tablet 10 mg PO QAM acyclovir 800 mg tablet 800 mg PO BEDTIME Ocuvite Adult 50 Plus 250 mg (90 mg-160 mg) Capsule 1 cap PO QAM prednisone 10 mg tablet 5 - 10 mg PO DAILY PRN (Reason: arthritis pain) Discharge Orders: Discharge ED (Routine); Ordered 09/18/25 Ordered By: Melquiades Ashley Referrals: Julieta Angela MD [Primary Care Provider, Internal Medicine] Discharge Diet: Full LIquid Discharge Activity: Increase activity as tolerated Patient Instructions: Opioid Safety, Pain Management, Patient Portal & Mamie Instructions Activity Restrictions/Additional Instructions: Thank you for choosing [facility] for your healthcare needs today. It is very important that you follow up as instructed or that you return to the Emergency Department should you have concerns or if your condition changes or worsens in any way. Emergency department visits are focused on emergent conditions, in some cases you may require further evaluation on an outpatient basis. You were seen in the emergency room with complaints of persistent diarrhea. Your exam was unremarkable your laboratory test did show signs of mild dehydration we did give you fluids for this. A C. difficile testing was done this was negative. Your stool was also checked for blood this was negative as well. Stool samples were taken for culture these will take several days to result. Recommend that you stick to a clear liquid diet. Do not resume the MiraLAX. Follow-up with your doctor early next week to begin to have blood in the stool or have a fever return to the emergency room (Please note that included in your discharge packet is information concerning opioid safety and pain management. This information is given to all patients were discharged from the ER regardless of their discharge diagnosis or the medicines they usually take or are prescribed.) Print Language: Romansh Coding Level of Care Code ED Prosthodontist for Osman Rosario
[2025-09-18 06:43] LABS: Hematocrit 38.1 % (36-47); Hemoglobin 12.70 g/dL (11.27-16.99); Mean Corpuscular HGB Conc 33.3 g/dL (30-55); Mean Corpuscular Hemoglobin 30.5 pg (27-33); Mean Corpuscular Volume 91.6 fl (85-98); Nucleated Red Blood Cells % 0 %; Platelet Count 245 10^3/cmm (157-399); Red Blood Count 4.16 10^6/uL (3.85-5.65); White Blood Count 8.17 10^3/uL (3.29-11.43)
[2025-09-18] MEDS: ondansetron 2 mg/ML SDV 2 mL 4 MG IVP (06:46)
[2025-09-18 07:00] VITALS: BP 123/83; PULSE 81; RESP 16; O2SAT 95
[2025-09-18 07:04] LABS: Alanine Aminotransferase 12 U/L (0-33); Albumin Level 4.5 g/dL (3.5-5.2); Alkaline Phosphatase 37 U/L (35-105); Anion Gap 19.6 (5-19); Aspartate Amino Transferase 14 U/L (0-32); Blood Urea Nitrogen 23 mg/dL (8-23); Calcium 9.3 mg/dL (8.5-10.5); Carbon Dioxide 17 mmol/L (22-29); Chloride 106 mmol/L (98-107); Globulin 2.5 g/dL (1.3-4.6); Glucose 102 mg/dL (65-115); Lipase 49 U/L (13-60); Osmolality Calculated 292 mOsm/kg (285-295); Potassium 3.6 mmol/L (3.5-5.1); Sodium 139 mmol/L (136-145); Total Protein 7.0 g/dL (6.6-8.7)
[2025-09-18 07:41] VITALS: BP 146/82
[2025-09-18 08:09] LABS: Add Urine Microscopic? NO
[2025-09-18 08:12] LABS: Glucose Urine UA Negative (Normal); Nitrate Urine Negative (Negative); Specific Gravity, Urine 1.006 (1.005-1.030)
[2025-09-18 08:17] LABS: Charge for UA Resulting for Rev
[2025-09-18 08:57] LABS: C.Diff PCR (Lab) NEGATIVE (Negative)
[2025-09-18 08:58] VITALS: PULSE 82; RESP 16; O2SAT 95
[2025-09-18 09:22] VITALS: BP 125/72; PULSE 78; O2SAT 96
== END 2025-09-18 09:23 | disposition home or self-care (01) ==
PROVIDERS: Emergency Provider Family Medicine; PCP Internal Medicine
DX: R19.7 Diarrhea, unspecified (principal); Z87.891 Personal history of nicotine dependence
CPT/HCPCS: 36415; 80053; 81003; 82274; 83690; 85025; 87045; 87427; 87449; 87493; 93005; 96361; 96374; 99284; J2405; J7030

== ENCOUNTER 2025-09-22 08:38 | Outpatient (CLI) | payer MEDICARE, OTHER, SELFPAY ==
--- NOTE | 2025-09-22 08:46 | USR_ITS ---
PROCEDURE INFORMATION: Exam: US Abdomen, Limited; Right Upper Quadrant Exam date and time: 09/22/2025 8:55 AM Age: 75 years old Clinical indication: Nausea and vomiting; Additional info: Nausea vomiting TECHNIQUE: Imaging protocol: Real time ultrasound of the abdomen with image documentation. Limited exam focused on the right upper quadrant. COMPARISON: CT chest abdpel w/*[id number] 06/24/2024 11:56 AM FINDINGS: Liver: Normal. No masses. The liver measures 14.2 cm in length. Gallbladder: Normal. No gallstones. There is no gallbladder wall thickening. Biliary ducts: Normal. No stones. No dilation. Common bile duct measures 0.5 cm. Pancreas: Visualized pancreas is unremarkable. Portions obscured by bowel gas shadowing. Right kidney: Normal. No mass. No hydronephrosis. Right kidney measures 9.4 cm in length. Aorta: Mid aorta measures 1.8 cm in diameter. Inferior vena cava: Upper IVC measures 1.3 cm in diameter. Portal venous: Hepatopetal flow in the main portal vein. US/US abdomen limited [id number] IMPRESSION: No acute sonographic findings in the visualized abdomen.
== END 2025-09-22 08:39 | disposition home or self-care (01) ==
LOC: RAD 08:40
PROVIDERS: PCP Internal Medicine; Visit Provider Internal Medicine
DX: R11.2 Nausea with vomiting, unspecified (principal)
CPT/HCPCS: 76705

== ENCOUNTER 2025-10-19 11:48 | Oncology outpatient (recurring) (ONCR) | payer MEDICARE, OTHER, SELFPAY ==
--- NOTE | 2025-10-19 11:30 | MM_ITS ---
WS: [id number] BILATERAL 3D TOMOSYNTHESIS DIGITAL DIAGNOSTIC MAMMOGRAPHY WITH CAD CLINICAL INFORMATION: surveillance HISTORY: RIGHT breast cancer COMPARISON: 2023 TECHNIQUE: Bilateral CC, MLO, and ML views. FINDINGS: Scattered fibroglandular densities bilaterally. Punctate and lucent centered calcifications. Vascular calcifications. Increasing asymmetric density posterior depth RIGHT breast upper outer quadrant. Recommend RIGHT breast diagnostic mammography and ultrasound if persistent. Unremarkable LEFT breast. MM/MM diag BI tomosynthesis [id number] IMPRESSION: DENSITY: There are scattered areas of fibroglandular density. BI-RADS: 0 - Incomplete: Need additional imaging evaluation. FOLLOW UP: Need Additional Imaging Recommend RIGHT breast diagnostic mammography and ultrasound if persistent.
== END 2025-10-28 23:59 | disposition home or self-care (01) ==
LOC: ONCMED 11:52
PROVIDERS: PCP Internal Medicine; Visit Provider Internal Medicine
DX: N63.11 Unspecified lump in the right breast, upper outer quadrant (principal); R92.323 Mammographic fibroglandular density, bilateral breasts; R92.1 Mammographic calcification found on diagnostic imaging of breast
CPT/HCPCS: 77062; G0279